=== PATIENT | female | born 1940 | race Caucasian/White ===

== ENCOUNTER 2022-06-14 11:30 | Outpatient (CLI) | payer MEDICARE, SELFPAY | END 2022-06-14 11:31 | disposition home or self-care (01) | LOC: AMB 07-09 20:09 | PROVIDERS: PCP Family Medicine; Visit Provider Family Medicine | DX: R53.1 Weakness (principal) | CPT/HCPCS: A0425; A0427 ==

== ENCOUNTER 2022-06-14 11:52 | Inpatient (IN) | payer MEDICARE, SELFPAY ==
[2022-06-14] VITALS (21 sets, daily range): BP systolic 109–174; BP diastolic 63–145; PULSE 102–124; RESP 18–20; TEMP 35.9–37.3; O2SAT 90–100; BMI 36.6
--- NOTE | 2022-06-14 | CRLHL7_ITS ---
For Patients: As a result of the Century Cures Act, medical imaging exams and procedure reports are released immediately into your electronic medical record. You may view this report before your referring provider. If you have questions, please contact your health care provider. INDICATION: Cough, weakness. TECHNIQUE: Chest 1 views. COMPARISON: Chest x-ray from 12/31/2019. FINDINGS: Lungs: Clear lungs. No consolidation. Pleura: No pleural effusion or pneumothorax. Heart and Mediastinum: The cardiomediastinal silhouette is normal. The vessels are unremarkable. Bones: Unremarkable. IMPRESSION: No acute cardiopulmonary disease. Dictated by Huy Conway MD @ 06/14/2022 2:00:26 PM (Electronically Signed)
--- NOTE | 2022-06-14 12:26 | ED_ITS ---
HPI - General Adult General Time Seen by Provider: 12:27 Date Seen: 06/14/22 Chief complaint: Fall/Minor Trauma Stated complaint: Weakness Time Seen by Provider: 06/14/22 12:09 Source: patient, EMS, RN notes reviewed and old records reviewed Mode of arrival: EMS Limitations: no limitations History of Present Illness HPI narrative: Ashley is an 81-year-old female that is brought by EMS after being found down by her assistant sales manager in her apartment. She states she lost her balance/tripped in her apartment yesterday about 4:30 p.m.. She is laid there until she was found this morning. She could not get back up. She states she was too weak to get back up. There was urine and feces where she had lost control. She denies any fevers or feeling ill. In route in the ambulance she did have an emesis, was given Zofran. She denies any significant pain. She states her left arm and elbow are somewhat sore. She denies any shortness of breath, no chest pain, no active ongoing nausea, no abdominal pain, denies any significant pain in her extremities. She resides independently in her apartment. Review of prior records shows that we last saw her on 07/06/2021. Of note, when I went in and introduced myself, and remembered seen me before. Her past medical and surgical history significant for chronic back pain, cervical stenosis that is reportedly severe. She has had balance issues in the past. Hypertension, status post cholecystectomy, status post right knee replacement. She has had an orif for distal tibia repair. She has had bilateral wrist surgeries. She has had 5 spinal fusions prior. She has had a right ankle orif. Related Data Home Medications Medication Instructions Recorded Confirmed amlodipine 10 mg tablet 5 mg PO DAILY 06/14/22 06/14/22 cholecalciferol (vitamin D3) 50 50 mcg PO DAILY 06/14/22 06/14/22 mcg (2,000 unit) capsule diphenhydramine HCl 25 mg capsule 25 mg PO QHS PRN 06/14/22 06/14/22 (Allergy (diphenhydramine)) gabapentin 600 mg tablet 600 mg PO BID 06/14/22 06/14/22 ibuprofen 200 mg tablet (Advil) 600 mg PO TID PRN 06/14/22 06/14/22 losartan 25 mg tablet 25 mg PO DAILY 06/14/22 06/14/22 multivitamin (Multiple Vitamins 1 tab PO DAILY 06/14/22 06/14/22 tablet) oxycodone 5 mg tablet 5 mg PO Q6H PRN 06/14/22 06/14/22 zinc gluconate 50 mg tablet 50 mg PO DAILY 06/14/22 06/14/22 Allergies Allergy/AdvReac Type Severity Reaction Status Date / Time No Known Drug Allergies Allergy Verified 06/14/22 12:15 Review of Systems Status of ROS: Reports: 10 or more systems reviewed and unremarkable except as noted in History and below [facility] Medical History (Updated 06/14/22 @ 19:36 by Deena Adams MD) Cervical spinal stenosis Chronic pain Difficulty balancing Essential hypertension Hyperlipidemia Osteopenia Prediabetes Surgical History (Updated 06/14/22 @ 18:57 by Deena Adams MD) H/O wrist surgery S/P cervical spinal fusion S/P lumbar fusion S/P rotator cuff repair Total knee replacement status Social History Highest level of school completed/degree received: Associate degree: occupational, technical, vocational program Smoking Status: Never smoker Do you use any of these nicotine containing products: None Second hand tobacco smoke exposure: No How often do you have a drink containing alcohol: never How often do you have six or more drinks on one occasion: Never AUDIT-C Alcohol total score: 0 Non-prescribed substance use: denies use Caffeine: Yes service: Yes Exam Const: Vital Signs, click to edit/add: Vital Signs - 24 hr 06/14/22 12:13 06/14/22 12:38 06/14/22 13:03 Temperature 96.6 F L Pulse Rate Pulse Rate [Left A pical] Pulse Rate [Left P ulse Oximeter] 106 H Respiratory Rate 18 Blood Pressure 174/145 H Blood Pressure [Ri ght Arm] Blood Pressure [Ri ght Upper Arm] 148/116 H Pulse Oximetry 97 95 Oxygen Delivery Me thod Room Air 06/14/22 13:10 06/14/22 13:45 06/14/22 14:00 Temperature Pulse Rate 108 H 102 H 109 H Pulse Rate [Left A pical] Pulse Rate [Left P ulse Oximeter] Respiratory Rate Blood Pressure Blood Pressure [Ri ght Arm] Blood Pressure [Ri ght Upper Arm] Pulse Oximetry 95 96 97 Oxygen Delivery Me thod 06/14/22 14:05 06/14/22 14:15 06/14/22 14:17 Temperature Pulse Rate 105 H 106 H 104 H Pulse Rate [Left A pical] Pulse Rate [Left P ulse Oximeter] Respiratory Rate Blood Pressure 109/97 H Blood Pressure [Ri ght Arm] Blood Pressure [Ri ght Upper Arm] Pulse Oximetry 98 98 98 Oxygen Delivery Me thod 06/14/22 14:30 06/14/22 14:32 06/14/22 14:45 Temperature Pulse Rate 107 H 107 H 106 H Pulse Rate [Left A pical] Pulse Rate [Left P ulse Oximeter] Respiratory Rate Blood Pressure 130/95 H Blood Pressure [Ri ght Arm] Blood Pressure [Ri ght Upper Arm] Pulse Oximetry 97 100 97 Oxygen Delivery Pr thod 06/14/22 14:47 06/14/22 15:00 06/14/22 17:17 Temperature Pulse Rate 108 H 124 H Pulse Rate [Left A pical] Pulse Rate [Left P ulse Oximeter] Respiratory Rate 20 Blood Pressure 122/93 H Blood Pressure [Ri ght Arm] Blood Pressure [Ri ght Upper Arm] Pulse Oximetry 97 93 96 Oxygen Delivery Pr thod Room Air 06/14/22 17:32 06/14/22 15:45 06/14/22 15:45 Temperature 98.8 F 98.8 F Pulse Rate Pulse Rate [Left A pical] 110 H 110 H 110 H Pulse Rate [Left P ulse Oximeter] Respiratory Rate 20 20 Blood Pressure Blood Pressure [Ri ght Arm] 124/86 124/86 Blood Pressure [Ri ght Upper Arm] Pulse Oximetry 96 96 Oxygen Delivery Pr thod Room Air Room Air 06/14/22 15:45 Temperature 98.8 F Pulse Rate Pulse Rate [Left A pical] 110 H Pulse Rate [Left P ulse Oximeter] Respiratory Rate 20 Blood Pressure Blood Pressure [Ri ght Arm] 124/86 Blood Pressure [Ri ght Upper Arm] Pulse Oximetry 94 Oxygen Delivery Pr thod Room Air Documenting provider has reviewed patient's vital signs: yes Common normals: no apparent distress, average body habitus, oriented x3, no limitations and alert General appearance: cooperative, comfortable and disheveled Other: Patient seemed flushed and warm to me. Did recheck a temporal temperature and she was 99.4. Tried an oral temperature but her oral membranes are so dry that I do not know that we are getting adequate contact. We got a low temperature and then a normal temperature. Again doubt the accuracy of this. HENMT: Common normals: normocephalic, head/scalp atraumatic, hearing grossly normal bilaterally, external ears normal, external nose normal and nasal mucous membranes and turbinates normal Head and scalp: normocephalic and atraumatic Nose: external nose normal and nasal mucous membranes and turbinates normal External ear: external ears normal Other: No traumatic change of her oropharynx but mucosa is definitely dry. Eye: Common normals: PERRL, EOMs intact bilaterally, conjunctivae normal and no scleral icterus Conjunctiva: conjunctiva(e) normal Pupil: PERRL Other: Some edema along the inner canthus of the left periorbital structure. No traumatic change noted. Neck & C-Spine: Common normals: full ROM, no lymphadenopathy, supple, no meningeal signs, no JVD and thyroid normal Thyroid: thyroid normal Chest: Common normals: inspection of chest normal and palpation of chest normal Resp: Common normals: normal respiratory effort, no retractions, no use of accessory muscles and clear to auscultation bilaterally Auscultation: clear to auscultation bilaterally Other: Note it took assist of 2 to help patient set up so I could auscultate her lungs. Cardio: Common normals: no JVD, regular rhythm, S1 normal heart sound, S2 normal heart sound, no gallops, no clicks and no murmurs Rate: tachycardic Rhythm: regular rhythm Heart sounds: S1 normal and S2 normal GI: Common normals: Normal to inspection, nondistended, normoactive bowel sounds present, soft to palpation, non-tender, no hepatosplenomegaly and no masses Palpation: soft and no hepatosplenomegaly Back & Pelvis: Common normals: thoracic and lumbar spine normal to inspection and no thoracic nor lumbar tenderness Extremity: Other: She can move both lower extremities. The right lower extremity has a skin tear inferiorly without any active bleeding. There is a demarcated erythema along the anterior tibia that is mildly erythematous, slightly warm. Will need to observe this in see if it is more dependent changes from lying on the ground or if this could be an early cellulitis starting. Left leg right arm seem to be unaffected. She does complain of some mild left elbow pain, seems to have preserved range of motion, see no focal abnormalities. Reviewed with her we will obtain an x-ray of this elbow. She is not tender about the glenohumeral joint but as I go down the proximal humerus she states there is some tenderness there. There is no overlying skin change. Will obtain x-rays of her humerus. Distal forearm, wrist and finger seem to be unaffected at this time. Neuro: Common normals: oriented x3 Sensorium/orientation: alert Meningeal signs: no meningeal signs Course Course Hospital Course: Patient is an 81-year-old female that had a fall, obviously need to consider traumatic issues, would recommend a head CT even though she seems to be neurovascularly stable. Will get x-rays of her left elbow in humerus. Will consider further workup of anything else that may crop up while she is here. We need to consider infectious etiology, metabolic etiology is potential causes of her fall. Will also review an EKG and troponin on her. We will be obtaining a total CK to ensure she does not have any ensuing rhabdomyolysis. Will have urinalysis collected. Will also get the triple viral swab for COVID/influenza/RSV. Will be doing a portable chest x-ray as we all know that pneumonia can have occult presentation in these elderly in be the cause for weakness for them. I have ordered blood cultures as well. We will start with a 500 mL fluid bolus, manage her fluids closely. She is not hypotensive at this time. She will be monitored on cardiac monitoring and pulse oximetry. Consultations Consultation #1: Spoke with hospitalist Dr. Adams regarding this patient. She does accept her. She will initiate maintenance fluids for her. She did want patient initiated on remdesivir. Given patient has a CK a in the 7000 range, do not feel Paxlovid should be initiated in her. She agrees, we will start remdesivir and I will order the 1st dose. Will let patient know she is being hospitalized. Time: 14:17 Vital Signs Vital signs: Initial Vital Signs Temperature 96.6 F L 06/14/22 12:13 Temperature Source Temporal Artery Scan 06/14/22 12:13 Pulse Rate 106 H 06/14/22 12:13 Pulse Rhythm 06/14/22 12:13 Pulse Strength 3+ Normal 06/14/22 12:13 Respiratory Rate 18 06/14/22 12:13 Blood Pressure 148/116 H 06/14/22 12:13 Blood Pressure Mean 126 06/14/22 12:13 Blood Pressure Position Sitting 06/14/22 12:13 Pulse Oximetry 97 06/14/22 12:13 Oxygen Delivery Method 06/14/22 12:13 Vital Signs Temperature 96.6 F L 06/14/22 12:13 Pulse Rate 106 H 06/14/22 12:13 Respiratory Rate 18 06/14/22 12:13 Blood Pressure 148/116 H 06/14/22 12:13 Pulse Oximetry 97 06/14/22 12:13 Oxygen Delivery Method 06/14/22 12:13 Temperature 99.1 F 06/14/22 19:00 Pulse Rate 112 H 06/14/22 19:00 Respiratory Rate 20 06/14/22 19:00 Blood Pressure 114/79 06/14/22 19:00 Pulse Oximetry 97 06/14/22 19:00 Oxygen Delivery Method 06/14/22 19:00 Medical Decision Making Lab Data Lab results reviewed: Yes I reviewed the patient's lab results Labs: Lab Results 06/14/22 06/14/22 06/14/22 Range/Units 12:35 12:45 12:45 WBC 19.73 H (4.50-11.00) K/uL RBC 4.68 (4.00-5.20) m/uL Hgb 14.4 (12.0-16.0) gm/dL Hct 43.4 (33.0-51.0) % MCV 93 (80-100) fL MCH 31 (26-34) pg MCHC 33 (32-36) gm/dL RDW Coeff of Gege 12.7 (11.5-15.5) % Plt Count 273 (140-440) K/uL Neut % (Auto) 89.7 H (42.0-72.0) % Lymph % (Auto) 3.5 L (20-44) % Murray % (Auto) 6.4 (0.0-11.0) % Eos % (Auto) 0.0 (0.0-7.0) % Baso % (Auto) 0.1 (0.0-3.0) % Neut # (Auto) 17.70 H (1.7-7.0) K/uL Lymph # (Auto) 0.70 L (0.90-2.90) K/uL Murray # (Auto) 1.30 H (0.00-0.90) K/UL Eos # (Auto) 0.00 (0.00-0.50) K/uL Baso # (Auto) 0.00 (0.00-0.30) K/uL Abs Immat Gran (auto) 0.10 (0.00-0.30) K/uL Imm/Tot Granulo (auto) 0.3 % Sodium 138 (135-149) mmol/L Potassium 3.8 (3.6-5.1) mmol/L Chloride 102 (96-114) mmol/L Carbon Dioxide 27 (20-32) mmol/L BUN 18 (7-30) mg/dL Creatinine 0.6 (0.5-1.5) mg/dL Estimated Creat Clear 34.30 Estimated GFR 90 ml/min Glucose 139 H (60-115) mg/dL Lactate (0.5-1.9) mmol/L Calcium 9.6 (8.4-10.6) mg/dL Total Bilirubin 0.7 (0.1-1.5) mg/dL AST 136 H (12-35) U/L ALT 49 H (4-35) U/L Alkaline Phosphatase 81 (40-150) U/L Total Creatine Kinase 7052 H (41-117) U/L C-Reactive Protein 4.7 H (0.5-1.0) mg/dL NT-Pro-B Natriuret Pep (0-450) PG/mL Total Protein 6.8 (6.0-8.3) g/dL Albumin 4.4 (3.3-5.0) g/dL Ethyl Alcohol < 0.01 L (0.01-0.03) % SARS-CoV-2 (PCR) (Negative) Influenza Type A (PCR) (Negative) Influenza Type B (PCR) (Negative) RSV (PCR) (Negative) POC Troponin I 0.00 L (0.01-0.04) ng/ml 06/14/22 06/14/22 06/14/22 Range/Units 12:45 12:45 12:48 WBC (4.50-11.00) K/uL RBC (4.00-5.20) m/uL Hgb (12.0-16.0) gm/dL Hct (33.0-51.0) % MCV (80-100) fL MCH (26-34) pg MCHC (32-36) gm/dL RDW Coeff of Gege (11.5-15.5) % Plt Count (140-440) K/uL Neut % (Auto) (42.0-72.0) % Lymph % (Auto) (20-44) % Murray % (Auto) (0.0-11.0) % Eos % (Auto) (0.0-7.0) % Baso % (Auto) (0.0-3.0) % Neut # (Auto) (1.7-7.0) K/uL Lymph # (Auto) (0.90-2.90) K/uL Murray # (Auto) (0.00-0.90) K/UL Eos # (Auto) (0.00-0.50) K/uL Baso # (Auto) (0.00-0.30) K/uL Abs Immat Gran (auto) (0.00-0.30) K/uL Imm/Tot Granulo (auto) % Sodium (135-149) mmol/L Potassium (3.6-5.1) mmol/L Chloride (96-114) mmol/L Carbon Dioxide (20-32) mmol/L BUN (7-30) mg/dL Creatinine (0.5-1.5) mg/dL Estimated Creat Clear Estimated GFR ml/min Glucose (60-115) mg/dL Lactate 2.3 H (0.5-1.9) mmol/L Calcium (8.4-10.6) mg/dL Total Bilirubin (0.1-1.5) mg/dL AST (12-35) U/L ALT (4-35) U/L Alkaline Phosphatase (40-150) U/L Total Creatine Kinase (41-117) U/L C-Reactive Protein (0.5-1.0) mg/dL NT-Pro-B Natriuret Pep 719 H (0-450) PG/mL Total Protein (6.0-8.3) g/dL Albumin (3.3-5.0) g/dL Ethyl Alcohol (0.01-0.03) % SARS-CoV-2 (PCR) POSITIVE SARS-CoV-2 A (Negative) Influenza Type A (PCR) Negative PCR FLU A (Negative) Influenza Type B (PCR) Negative PCR FLU B (Negative) RSV (PCR) Negative PCR RSV (Negative) POC Troponin I (0.01-0.04) ng/ml ECG Data Attestation: I personally reviewed and interpreted this ECG as follows: (Sinus tachycardia, 102 beats per minute. No acute pathology, there is some baseline artifact. QT corrected 463 milliseconds.) Prior ECG tracings: not available for review Critical Care Time Critical Care Time Critical Care Time: No Discharge Plan Discharge Clinical Impression: COVID-19, Rhabdomyolysis, Fall Prescriptions: No Action gabapentin 600 mg tablet 600 mg PO BID amlodipine 10 mg tablet 5 mg PO DAILY losartan 25 mg tablet 25 mg PO DAILY oxycodone 5 mg tablet 5 mg PO Q6H PRN multivitamin [Multiple Vitamins] Tablet 1 tab PO DAILY ibuprofen [Advil] 200 mg tablet 600 mg PO TID PRN cholecalciferol (vitamin D3) 50 mcg (2,000 unit) capsule 50 mcg PO DAILY diphenhydramine HCl [Allergy (diphenhydramine)] 25 mg capsule 25 mg PO QHS PRN zinc gluconate 50 mg tablet 50 mg PO DAILY Follow Up/Referrals: Rose Painter MD [Primary Care Provider] -
--- NOTE | 2022-06-14 12:52 | CRLHL7_ITS ---
For Patients: As a result of the Century Cures Act, medical imaging exams and procedure reports are released immediately into your electronic medical record. You may view this report before your referring provider. If you have questions, please contact your health care provider. INDICATION: Trauma COMPARISON: July 06, 2021 TECHNIQUE: CT examination of the head was performed as axial sections without intravenous contrast. Images were obtained from the vertex of the skull through the skull base. Please note that all CT scans at this facility use dose modulation, iterative reconstruction, and/or weight-based dosing when appropriate to reduce radiation dose to as low as reasonably achievable. FINDINGS: The brain shows no sign of mass lesion, mass effect, hemorrhage, or edema. There are involutional changes. There is moderate cortical atrophy and there is moderate to severe white matter disease. There is no hydrocephalus. The ventricles are mildly dilated but unchanged since the prior study. The visualized portions of the orbits are normal in appearance. The osseous structures are normal in appearance with no sign of abnormality in the skull base or calvarium. IMPRESSION: Involutional changes. Atrophy and white matter disease. Mildly dilated ventricles. Unchanged overall appearance since 2020. No acute posttraumatic finding. Please note that all CT scans at this facility use dose modulation, iterative reconstruction, and/or weight-based dosing when appropriate to reduce radiation dose to as low as reasonably achievable. Dictated by Yair Moreau MD @ 06/14/2022 2:28:37 PM (Electronically Signed)
--- NOTE | 2022-06-14 12:52 | CRLHL7_ITS ---
For Patients: As a result of the Cures Act, medical imaging exams and procedure reports are released immediately into your electronic medical record. You may view this report before your referring provider. If you have questions, please contact your health care provider. Indication: Trauma Technique: Three views of the left elbow were acquired Comparison: None of the elbow. Findings: Bone mineral density is decreased. There is subcutaneous soft tissue swelling. Mild osteoarthritis. No visible acute fracture, dislocation or destructive process. Rim calcified subcutaneous soft tissue calcifications are likely phleboliths associated with venous varicosities or areas of fat necrosis. There is no joint effusion Impression: No fracture, dislocation or destructive process. No joint effusion. Mild osteoarthritis. Soft tissue swelling. Dictated by Yair Moreau MD @ 06/14/2022 2:42:22 PM (Electronically Signed)
--- NOTE | 2022-06-14 12:52 | CRLHL7_ITS ---
For Patients: As a result of the Century Cures Act, medical imaging exams and procedure reports are released immediately into your electronic medical record. You may view this report before your referring provider. If you have questions, please contact your health care provider. Indication: FALL, PAIN Technique: Left humerus, 2 views. Comparison: None. Findings: Bones: Alignment is normal. No fractures or bone lesions. Joint spaces: Unremarkable. Soft tissues: Subcutaneous reticulation posterior to the elbow. Impression: No evidence of fracture. Dictated by Scott Rene MD @ 06/14/2022 2:52:33 PM (Electronically Signed)
[2022-06-14 13:00] LABS: Basophils Percent Auto 0.1 % (0.0-3.0); Hematocrit 43.4 % (33.0-51.0); Hemoglobin* 14.4 gm/dL (12.0-16.0); Immature Granulocytes Pct Auto 0.3 %; Lymphocytes Percent Auto 3.5 % (20-44); Mean Corpuscular HGB Conc 33 gm/dL (32-36); Mean Corpuscular Hemoglobin 31 pg (26-34); Mean Corpuscular Volume 93 fL (80-100); Monocytes Percent Auto 6.4 % (0.0-11.0); Neutrophils Percent Auto 89.7 % (42.0-72.0); Platelet Count* 273 K/uL (140-440); RDW Coefficient of Variation % 12.7 % (11.5-15.5); Red Blood Count 4.68 m/uL (4.00-5.20); White Blood Count* 19.73 K/uL (4.50-11.00)
[2022-06-14 13:01] LABS: Slide Review Reflex No
[2022-06-14 13:16] LABS: Lactate* 2.3 mmol/L (0.5-1.9)
[2022-06-14 13:26] LABS: Albumin* 4.4 g/dL (3.3-5.0); Chloride* 102 mmol/L (96-114)
[2022-06-14 13:27] LABS: Potassium* 3.8 mmol/L (3.6-5.1); Sodium* 138 mmol/L (135-149)
[2022-06-14 13:29] LABS: Aspartate Amino Transferase* 136 U/L (12-35); Bilirubin Total* 0.7 mg/dL (0.1-1.5); Carbon Dioxide* 27 mmol/L (20-32); Creatinine* 0.6 mg/dL (0.5-1.5); Estimated Glomerular Filt Rate 90 ml/min; Total Protein* 6.8 g/dL (6.0-8.3)
[2022-06-14 13:30] LABS: Alanine Aminotransferase* 49 U/L (4-35); Alkaline Phosphatase* 81 U/L (40-150); Blood Urea Nitrogen* 18 mg/dL (7-30); Calcium* 9.6 mg/dL (8.4-10.6); Glucose* 139 mg/dL (60-115)
[2022-06-14 13:32] LABS: C Reactive Protein* 4.7 mg/dL (0.5-1.0)
[2022-06-14 13:38] LABS: Ethanol* < 0.01 % (0.01-0.03)
[2022-06-14 13:39] LABS: NT Pro B Type NatriureticPept* 719 PG/mL (0-450)
[2022-06-14 13:43] LABS: PCR FLU A Negative PCR FLU A (Negative); PCR FLU B Negative PCR FLU B (Negative); PCR RSV Negative PCR RSV (Negative)
[2022-06-14 13:45] LABS: SARS PCR* POSITIVE SARS-CoV-2 (Negative)
[2022-06-14 13:48] LABS: Creatine Kinase* 7052 U/L (41-117)
[2022-06-14] MEDS: 0.9 % SODIUM CHLORIDE 500 ML 500 ML IV ×2 (15:34→20:13)
--- NOTE | 2022-06-14 17:46 | PM.IMHP1 ---
Hospitalist- H&P: HPI History of Present Illness Date Seen: 06/14/22 Chief complaint: Weakness Narrative: Ashley Bell is a 81 year old female, brought in my EMS to the ER today, after being found down in her apartment by her tool crib manager. She fell at home yesterday (states mechanical fall, no preceding dizziness or palpitations), was unable to get back up 2/2 weakness. Known history of balance issues and has fallen before. When I see her on the floor, she has no complaints for me. She specifically denies muscle aches, abdominal pain, chest pain, nausea/vomiting/diarrhea. No acute dyspnea (has had in the past). Mild cough started upon arrival to the floor. ER Course and findings: - skin tear RLE, erythema LLE, edema and mild erythema around L elbow - WBC 19, PMN predominance - CK 7000, elevated AST/ALT, negative troponin - no acute abnormalities on CXR, Head, and left elbow imaging - + COVID Patient has had no COVID symptoms (until cough today), no recent known COVID contacts, has received 5 COVID vaccines. Past medical, surgical, social history updated in tabs below. 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 Lives alone in an apartment, has a cane for ambulatory assistance. Has previously declined Home Health services as offered by PCP, Dr. Painter. Not partnered, no children. Sister Asuncion lives locally and would be medical decision maker if needed. Ashley requests to be resuscitated in the event of a witnessed arrest only. Review of Systems Status of ROS: Reports: 10 or more systems reviewed and unremarkable except as noted in History and below [facility] Medical History (Updated 06/14/22 @ 19:36 by Deena Adams MD) Cervical spinal stenosis Chronic pain Difficulty balancing Essential hypertension Hyperlipidemia Osteopenia Prediabetes Surgical History (Updated 06/14/22 @ 18:57 by Deena Adams MD) H/O wrist surgery S/P cervical spinal fusion S/P lumbar fusion S/P rotator cuff repair Total knee replacement status Social History Highest level of school completed/degree received: Associate degree: occupational, technical, vocational program Smoking Status: Never smoker Do you use any of these nicotine containing products: None Second hand tobacco smoke exposure: No How often do you have a drink containing alcohol: never How often do you have six or more drinks on one occasion: Never AUDIT-C Alcohol total score: 0 Non-prescribed substance use: denies use Caffeine: Yes service: Yes Meds Home Medications and Allergies Home Medications Medication Instructions Recorded Confirmed Type amlodipine 10 mg tablet 5 mg PO DAILY 06/14/22 06/14/22 History cholecalciferol (vitamin D3) 50 50 mcg PO DAILY 06/14/22 06/14/22 History mcg (2,000 unit) capsule diphenhydramine HCl 25 mg capsule 25 mg PO QHS PRN 06/14/22 06/14/22 History (Allergy (diphenhydramine)) gabapentin 600 mg tablet 600 mg PO BID 06/14/22 06/14/22 History ibuprofen 200 mg tablet (Advil) 600 mg PO TID PRN 06/14/22 06/14/22 History losartan 25 mg tablet 25 mg PO DAILY 06/14/22 06/14/22 History multivitamin (Multiple Vitamins 1 tab PO DAILY 06/14/22 06/14/22 History tablet) oxycodone 5 mg tablet 5 mg PO Q6H PRN 06/14/22 06/14/22 History zinc gluconate 50 mg tablet 50 mg PO DAILY 06/14/22 06/14/22 History Home Medication Comments: Per [employer], fills #30 of Oxycodone approximately ever 25 days. Allergies Allergy/AdvReac Type Severity Reaction Status Date / Time No Known Drug Allergies Allergy Verified 06/14/22 12:15 Exam Narrative: Exam Narrative: GEN: Alert, answering questions appropriately, mild memory impairment noted HEENT: Normal external ears, EOMIs bilaterally, no scleral icterus CV: Sinus tachycardia with rate in the 100s during my exam, systolic murmur noted best at left sternal border R: Air movement adequate bilaterally. No wheezing. + rhonchi left base Ext: wwp, no concerning edema Skin: Erythema and edema just distal to left elbow, full range of motion noted. No crepitus to palpation. There is a small skin tear on the right lower extremity anteriorly without any active bleeding, approximately 2 cm in length. There is erythema along the lateral edge of the left lower extremity that is warm to palpation and moderately tender, no open skin wounds appreciated Neuro: No focal deficits, no resting tremor Psych: Appropriate Const: Vital Signs, click to edit/add: Vital Signs - 24 hr 06/14/22 12:13 06/14/22 12:38 06/14/22 13:03 Temperature 96.6 F L Pulse Rate Pulse Rate [Left A pical] Pulse Rate [Left P ulse Oximeter] 106 H Respiratory Rate 18 Blood Pressure 174/145 H Blood Pressure [Ri ght Upper Arm] 148/116 H Pulse Oximetry 97 95 Oxygen Delivery Me thod Room Air 06/14/22 13:10 06/14/22 13:45 06/14/22 14:00 Temperature Pulse Rate 108 H 102 H 109 H Pulse Rate [Left A pical] Pulse Rate [Left P ulse Oximeter] Respiratory Rate Blood Pressure Blood Pressure [Ri ght Upper Arm] Pulse Oximetry 95 96 97 Oxygen Delivery Me thod 06/14/22 14:05 06/14/22 14:15 06/14/22 14:17 Temperature Pulse Rate 105 H 106 H 104 H Pulse Rate [Left A pical] Pulse Rate [Left P ulse Oximeter] Respiratory Rate Blood Pressure 109/97 H Blood Pressure [Ri ght Upper Arm] Pulse Oximetry 98 98 98 Oxygen Delivery Me thod 06/14/22 14:30 06/14/22 14:32 06/14/22 14:45 Temperature Pulse Rate 107 H 107 H 106 H Pulse Rate [Left A pical] Pulse Rate [Left P ulse Oximeter] Respiratory Rate Blood Pressure 130/95 H Blood Pressure [Ri ght Upper Arm] Pulse Oximetry 97 100 97 Oxygen Delivery Me thod 06/14/22 14:47 06/14/22 15:00 06/14/22 17:17 Temperature Pulse Rate 108 H 124 H Pulse Rate [Left A pical] Pulse Rate [Left P ulse Oximeter] Respiratory Rate 20 Blood Pressure 122/93 H Blood Pressure [Ri ght Upper Arm] Pulse Oximetry 97 93 96 Oxygen Delivery Me thod Room Air 06/14/22 17:32 Temperature Pulse Rate Pulse Rate [Left A pical] 110 H Pulse Rate [Left P ulse Oximeter] Respiratory Rate Blood Pressure Blood Pressure [Ri ght Upper Arm] Pulse Oximetry Oxygen Delivery Me thod Hospitalist - H&P: Result Labs Labs: Short CBC 06/14/22 Range/Units 12:45 WBC 19.73 H (4.50-11.00) K/uL Hgb 14.4 (12.0-16.0) gm/dL Hct 43.4 (33.0-51.0) % Plt Count 273 (140-440) K/uL BMP 06/14/22 12:45 Sodium 138 Potassium 3.8 Chloride 102 Carbon Dioxide 27 BUN 18 Creatinine 0.6 Glucose 139 H Calcium 9.6 Cardiac Enzymes 06/14/22 Range/Units 12:45 Total Creatine Kinase 7052 H (41-117) U/L Liver Function 06/14/22 Range/Units 12:45 Total Bilirubin 0.7 (0.1-1.5) mg/dL AST 136 H (12-35) U/L ALT 49 H (4-35) U/L Alkaline Phosphatase 81 (40-150) U/L Albumin 4.4 (3.3-5.0) g/dL Assessment and Plan Assessment and plan (1) Fall: Status: Acute Assessment and Plan: - Patient endorses a history of poor balance, will consult PT and OT (2) Rhabdomyolysis: Status: Acute Assessment and Plan: - patient given 500 mL bolus in the emergency room. Will repeat this, continue maintenance IV fluids, follow CK and LFTs, UA pending (3) COVID-19: Problem comment: + 06/14/2022 Status: Acute Assessment and Plan: - timeline unclear, could be early in illness - given age and comorbidities, will treat with Remdesivir, follow renal function - not requiring supplemental oxygen at this time (4) Cellulitis: Problem comment: LLE Status: Acute Assessment and Plan: - given elevated white count and tachycardia, will cover cellulitis with Ancef - obtain lower extremity ultrasound (5) Essential hypertension: Status: Acute (6) Difficulty balancing: Status: Acute (7) Elevated LFTs: Status: Acute Assessment and Plan: - likely related to rhabdo, continue to follow Plan - per above - SCDs and Lovenox for prophylaxis
--- NOTE | 2022-06-14 19:18 | PC.NURSE ---
Pt admitted to room 277 @ via stretcher at 1547 pm from ED. Positive Covid patient. Full PPE utilized by admitting RN. Eval by Dr. Adams. Remdesivir infused. Wound care to skin tear triangular in shape on right anterior kennedy. New orders for cardiac cath technician, rhythm is sinus tachycardia. Continuous pulse ox in process. Pt is on a regular diet. Admission completed by primary RN. Bilateral calf SCDs placed. Pt ordered a late tray. Bed alarm engaged. Report to Marsha ESPARZA for date night sitter. pt still needs a urine sample collected. GB and walker in room, recommend 2 person assist secondary to fall at home and weakness/fatigue r/to covid.
[2022-06-14] MEDS: ENOXAPARIN 40 MG/0.4 ML INJ SUBCUT (21:25)
[2022-06-14] MEDS: CEFAZOLIN 1 GM in 0.9 % SODIUM CHLORIDE Mini-bag 100 ML IVPB (21:25)
[2022-06-14] MEDS: 0.9 % SODIUM CHLORIDE 1000 ml 1,000 ML 125 ML IV (21:25)
[2022-06-15] VITALS (8 sets, daily range): BP systolic 118–163; BP diastolic 76–119; PULSE 77–118; RESP 18–20; TEMP 36.6–37.2; O2SAT 92–99
[2022-06-15] MEDS: CEFAZOLIN 1 GM in 0.9 % SODIUM CHLORIDE Mini-bag 100 ML IVPB ×3 (04:39→21:35)
[2022-06-15] MEDS: 0.9 % SODIUM CHLORIDE 1000 ml 1,000 ML 125 ML IV ×2 (04:40→16:38)
[2022-06-15 06:46] LABS: Lactate* 0.8 mmol/L (0.5-1.9)
[2022-06-15] MEDS: ACETAMINOPHEN 325 MG TABLET 975 MG PO ×2 (06:52→16:54)
[2022-06-15 06:56] LABS: Basophils Percent Auto 0.2 % (0.0-3.0); Eosinophils Percent Auto 0.1 % (0.0-7.0); Hemoglobin* 12.8 gm/dL (12.0-16.0); Immature Granulocytes Pct Auto 0.1 %; Lymphocytes Percent Auto 10.9 % (20-44); Mean Corpuscular HGB Conc 33 gm/dL (32-36); Mean Corpuscular Hemoglobin 31 pg (26-34); Mean Corpuscular Volume 93 fL (80-100); Monocytes Percent Auto 7.7 % (0.0-11.0); Platelet Count* 278 K/uL (140-440); Red Blood Count 4.18 m/uL (4.00-5.20); White Blood Count* 13.41 K/uL (4.50-11.00)
--- NOTE | 2022-06-15 07:00 | CRLHL7_ITS ---
For Patients: As a result of the Century Cures Act, medical imaging exams and procedure reports are released immediately into your electronic medical record. You may view this report before your referring provider. If you have questions, please contact your health care provider. INDICATION: COMPARISON: None. TECHNIQUE: A compression venous ultrasound exam was performed of the left lower extremity using caputo-scale imaging, color Doppler and spectral Doppler analysis. FINDINGS: Sonographic imaging of the left lower extremity demonstrates normal compressibility and color Doppler venous blood flow within the common femoral vein, deep femoral vein, and the proximal greater saphenous vein. Within the thigh, the femoral vein is patent and compressible. At a lower level, the popliteal and posterior tibial veins also show normal compressibility and color Doppler venous blood flow. Limited imaging of the contralateral groin demonstrates a normal spectral waveform and color Doppler venous blood flow within the right common femoral vein. IMPRESSION: Normal venous ultrasound exam. No evidence of deep vein thrombosis within the left lower extremity. Dictated by Crow Ferrari MD @ 06/15/2022 10:29:08 AM (Electronically Signed)
[2022-06-15 07:24] LABS: Albumin* 3.8 g/dL (3.3-5.0)
[2022-06-15 07:25] LABS: Chloride* 111 mmol/L (96-114); Potassium* 3.3 mmol/L (3.6-5.1); Sodium* 139 mmol/L (135-149)
[2022-06-15 07:27] LABS: Aspartate Amino Transferase* 138 U/L (12-35); Bilirubin Total* 0.5 mg/dL (0.1-1.5); Carbon Dioxide* 22 mmol/L (20-32); Creatinine* 0.6 mg/dL (0.5-1.5); Estimated Glomerular Filt Rate 90 ml/min; Total Protein* 6.4 g/dL (6.0-8.3)
[2022-06-15 07:28] LABS: Alanine Aminotransferase* 56 U/L (4-35); Alkaline Phosphatase* 66 U/L (40-150); Blood Urea Nitrogen* 21 mg/dL (7-30); Calcium* 8.6 mg/dL (8.4-10.6); Glucose* 112 mg/dL (60-115)
[2022-06-15 07:31] LABS: Slide Review Reflex No
--- NOTE | 2022-06-15 07:41 | PC.NURSE ---
[id number]: Patient pleasant and cooperative. A&O x3 but confused at times. Denies pain at rest but did request Tylenol for chronic back pain this morning. Incontinent of B&B but states that it is not normal for her. Cellulitis to L. lower extremity outlined. Skin tear to R. kennedy with tagaderm bandage. Heavy A2, walker, GB to BSC. Denies N/V. Intermittent dry cough.
[2022-06-15 08:10] LABS: C Reactive Protein* 6.3 mg/dL (0.5-1.0)
[2022-06-15 08:11] LABS: NT Pro B Type NatriureticPept* 513 PG/mL (0-450)
[2022-06-15 08:15] LABS: Troponin I* 0.01 ng/mL (0.01-0.04)
[2022-06-15] MEDS: AMLODIPINE 10 MG TABLET 5 MG PO (08:38)
[2022-06-15] MEDS: LOSARTAN POTASSIUM 50 MG TABLET 25 MG PO (08:38)
[2022-06-15 08:39] LABS: Creatine Kinase* 5107 U/L (41-117)
[2022-06-15 09:40] LABS: Appearance Urine Cloudy (Clear); Bilirubin Urine Negative (Negative); Blood Urine 2+ (Negative); Color Urine Yellow (Yellow); Glucose Urine Negative (Negative); Ketones Urine 2+ (Negative); Leukocyte Esterase Urine 3+ (Negative); Nitrite Urine Negative (Negative); Protein Urine 3+ (Negative); Specific Gravity Urine >= 1.030 (1.000-1.030); Urobilinogen Urine 0.2 (0.2-1.0); pH Urine 6.5 (5.0-8.5)
[2022-06-15 10:05] LABS: Bacteria Urine Moderate; RBC Urine 0-2 (0-2); Squamous Epithelial Cell Urine Few (None-Few); WBC Urine 50-100 (0-5)
--- NOTE | 2022-06-15 13:59 | PM.IMPN1 ---
Progress Note: A&P Assessment and plan (1) Fall: Problem details: Cause undetermined. COVID? abnl UA - culture pending, on IV Ancef. cause or result of fall? Status: Acute (2) Rhabdomyolysis: Problem details: Down trending CK, normal renal function. Continue IV fluid hydration. Trend markers. Status: Acute (3) COVID-19: Problem details: + 06/14/2022 Loading dose of Remdesivir given, 2 more IV doses planned Status: Acute (4) Cellulitis: Problem details: LLE - looks more like inflamation and abrasions. follow clinically; consider oral vs d/c antibiotics. Status: Acute (5) Essential hypertension: Problem details: restart home norvasc and losartan Status: Acute (6) Difficulty balancing: Problem details: slow decline; this will affect her discharge plan -OT/PT to eval and consider rehab/SNF placement Status: Acute (7) Elevated LFTs: Problem details: likely related to prolonged immobilization, rhabdo, dehydration. will follow clinically Status: Acute Subjective Date Seen: 06/15/22 Interval history: DAILY PROGRESS NOTE - HOSPITAL MEDICINE DAY #: 2 CC: COVID+, FALL W/PROLONGED IMBOLIZATION (18 HOURS), RHABDO, SUPERFICIAL ABRASIONS ON HER LEFT LOWER LEG OVERNIGHT UPDATES FROM STAFF & MED, LAB, IMAGING UPDATES alert, a little forgetful. she tells me she is not sure why she fell. she remembers trying to get to the door, her cat coming over. she has road rash on her left lower extremity. AFEBRILE SINCE ARRIVAL, T-MAX 99.1? Blood pressure 118/100, 148/119 Pulse rate 89-109 Respiratory rate 20 93% on room air 90.72 kilos Leukocytosis has downtrended nicely 19.7-13.4 Hemoglobin 14-12 Potassium has down trended to 3.3 Normal renal function despite rhabdomyolysis Lactate elevation has resolved AST and ALT are elevated Total CK is down trending nicely 7000 to 5000 C reactive protein 4.7-6.3 BMP down trending from [id number] Urine shows 3+ protein, 2+ ketones, 3+ leukocyte esterase, elevated white blood cells Urine and blood cultures are pending REVIEW OF SYSTEMS: SEE SUBJECTIVE CARDIAC: NO NEW CHEST PAIN/PRESSURE/PALPITATIONS. RESPIRATORY: NO NEW DYSPNEA. GI: NO ABDOMINAL BLOATING OBJECTIVE: VITALS: SEE ABOVE LUNGS: CLEAR. CARDIAC: S1S2. Flow murmur noted, not harsh Skin: left calf abrasions DISPOSITION/POTENTIAL DISCHARGE - Will likely need to rehab stay, however is COVID positive, so will likely be doing rehab here and then discharging either at the 10 day point to rehab verses going home. TOTAL TIME IS 35 MINUTES WITH GREATER THAN 50% SPENT IN COUNSELING AND COORDINATION OF CARE. Exam Const: Vital Signs, click to edit/add: Vital Signs - 24 hr 06/14/22 14:00 06/14/22 14:05 06/14/22 14:15 Temperature Pulse Rate 109 H 105 H 106 H Pulse Rate [Left A pical] Respiratory Rate Blood Pressure Blood Pressure [Ri ght Arm] Pulse Oximetry 97 98 98 Oxygen Delivery Me thod 06/14/22 14:17 06/14/22 14:30 06/14/22 14:32 Temperature Pulse Rate 104 H 107 H 107 H Pulse Rate [Left A pical] Respiratory Rate Blood Pressure 109/97 H 130/95 H Blood Pressure [Ri ght Arm] Pulse Oximetry 98 97 100 Oxygen Delivery Me thod 06/14/22 14:45 06/14/22 14:47 06/14/22 15:00 Temperature Pulse Rate 106 H 108 H 124 H Pulse Rate [Left A pical] Respiratory Rate Blood Pressure 122/93 H Blood Pressure [Ri ght Arm] Pulse Oximetry 97 97 93 Oxygen Delivery Me thod 06/14/22 17:17 06/14/22 17:32 06/14/22 15:45 Temperature 98.8 F Pulse Rate Pulse Rate [Left A pical] 110 H 110 H Respiratory Rate 20 20 Blood Pressure Blood Pressure [Ri ght Arm] 124/86 Pulse Oximetry 96 96 Oxygen Delivery Me thod Room Air Room Air 06/14/22 18:08 06/14/22 18:07 06/14/22 15:45 Temperature 98.8 F Pulse Rate 118 H Pulse Rate [Left A pical] 110 H Respiratory Rate 20 Blood Pressure Blood Pressure [Ri ght Arm] 124/86 Pulse Oximetry 94 96 Oxygen Delivery Me thod Room Air 06/14/22 15:45 06/14/22 19:00 06/14/22 23:00 Temperature 98.8 F 99.1 F 98.1 F Pulse Rate Pulse Rate [Left A pical] 110 H 112 H 117 H Respiratory Rate 20 20 20 Blood Pressure Blood Pressure [Ri ght Arm] 124/86 114/79 131/63 Pulse Oximetry 94 97 94 Oxygen Delivery Me thod Room Air Room Air Room Air 06/14/22 23:00 06/14/22 23:00 06/14/22 23:00 Temperature Pulse Rate Pulse Rate [Left A pical] 117 H Respiratory Rate Blood Pressure Blood Pressure [Ri ght Arm] Pulse Oximetry 90 90 Oxygen Delivery Me thod Room Air 06/14/22 23:00 06/15/22 03:00 06/15/22 07:00 Temperature 98.3 F Pulse Rate 118 H Pulse Rate [Left A pical] 109 H Respiratory Rate 20 Blood Pressure Blood Pressure [Ri ght Arm] 153/79 H Pulse Oximetry 92 92 Oxygen Delivery Me thod Room Air 06/15/22 07:00 06/15/22 07:00 06/15/22 07:00 Temperature 98.4 F Pulse Rate Pulse Rate [Left A pical] 109 H 109 H Respiratory Rate 20 20 Blood Pressure Blood Pressure [Ri ght Arm] 148/119 H Pulse Oximetry 92 93 Oxygen Delivery Me thod Room Air Room Air Labs Labs: Laboratory Results - last 24 hr 06/14/22 06/15/22 06/15/22 09:36 06:40 06:40 WBC 13.41 H RBC 4.18 Hgb 12.8 Hct 39.0 MCV 93 MCH 31 MCHC 33 RDW Coeff of [place] 13.0 Plt Count 278 Neut % (Auto) 81.0 H Lymph % (Auto) 10.9 L [place] % (Auto) 7.7 Eos % (Auto) 0.1 Baso % (Auto) 0.2 Neut # (Auto) 10.90 H Lymph # (Auto) 1.50 [place] # (Auto) 1.00 H Eos # (Auto) 0.00 Baso # (Auto) 0.00 Abs Immat Gran (auto) 0.00 Imm/Tot Granulo (auto) 0.1 Sodium Potassium Chloride Carbon Dioxide BUN Creatinine Estimated Creat Clear Estimated GFR Glucose Lactate 0.8 Calcium Total Bilirubin AST ALT Alkaline Phosphatase Total Creatine Kinase Troponin I C-Reactive Protein NT-Pro-B Natriuret Pep Total Protein Albumin Urine Color Yellow Urine Appearance Cloudy A Urine pH 6.5 Ur Specific [place] >= 1.030 Urine Protein 3+ A Urine Glucose (UA) Negative Urine Ketones 2+ A Urine Blood 2+ A Urine Nitrite Negative Urine Bilirubin Negative Urine Urobilinogen 0.2 Ur Leukocyte Esterase 3+ A Urine RBC 0-2 Urine WBC 50-100 A Ur Squamous Epith Cells Few Urine Bacteria Moderate A 06/15/22 06:40 WBC RBC Hgb Hct MCV MCH MCHC RDW Coeff of [place] Plt Count Neut % (Auto) Lymph % (Auto) [place] % (Auto) Eos % (Auto) Baso % (Auto) Neut # (Auto) Lymph # (Auto) [place] # (Auto) Eos # (Auto) Baso # (Auto) Abs Immat Gran (auto) Imm/Tot Granulo (auto) Sodium 139 Potassium 3.3 L Chloride 111 Carbon Dioxide 22 BUN 21 Creatinine 0.6 Estimated Creat Clear 34.30 Estimated GFR 90 Glucose 112 Lactate Calcium 8.6 Total Bilirubin 0.5 AST 138 H ALT 56 H Alkaline Phosphatase 66 Total Creatine Kinase 5107 H Troponin I 0.01 C-Reactive Protein 6.3 H NT-Pro-B Natriuret Pep 513 H Total Protein 6.4 Albumin 3.8 Urine Color Urine Appearance Urine pH Ur Specific [place] Urine Protein Urine Glucose (UA) Urine Ketones Urine Blood Urine Nitrite Urine Bilirubin Urine Urobilinogen Ur Leukocyte Esterase Urine RBC Urine WBC Ur Squamous Epith Cells Urine Bacteria
[2022-06-15] MEDS: GABAPENTIN 600 MG TABLET PO (21:35)
[2022-06-15] MEDS: ENOXAPARIN 40 MG/0.4 ML INJ SUBCUT (21:35)
[2022-06-16 03:00] VITALS: BP 150/71; PULSE 105; RESP 20; TEMP 36.8; O2SAT 95
[2022-06-16] MEDS: 0.9 % SODIUM CHLORIDE 1000 ml 1,000 ML 125 ML IV ×2 (03:40→12:45)
[2022-06-16] MEDS: CEFAZOLIN 1 GM in 0.9 % SODIUM CHLORIDE Mini-bag 100 ML IVPB ×2 (05:26→12:43)
--- NOTE | 2022-06-16 06:49 | PC.NURSE ---
1507: pt pleasant and cooperative. EZ stand for transfers, pt tolerated well. pt incont, requiring brief changes, linens changed x 1. VSS. O2 > 88%. LLE cellulitis outlined. Mepi on right kennedy. Tele: NSR/Sinus Tach @ 1500. Tele: Sinus arrythmia @ 2300.
[2022-06-16 07:00] VITALS: BP 147/106; PULSE 77; PULSE 97; RESP 18; TEMP 37.1; O2SAT 99
[2022-06-16 08:18] LABS: Hematocrit 34.6 % (33.0-51.0); Hemoglobin* 11.4 gm/dL (12.0-16.0); Mean Corpuscular HGB Conc 33 gm/dL (32-36); Mean Corpuscular Hemoglobin 31 pg (26-34); Mean Corpuscular Volume 94 fL (80-100); Platelet Count* 237 K/uL (140-440); Red Blood Count 3.69 m/uL (4.00-5.20); White Blood Count* 10.74 K/uL (4.50-11.00)
[2022-06-16 08:19] LABS: HCO3 VBG 25 mmol/L (21-28); PCO2 VBG 39 mmHG (40-50); PO2 VBG 30.2 mmHG (25-47); pH VBG 7.416 (7.32-7.43)
[2022-06-16 08:22] LABS: Slide Review Reflex No
[2022-06-16 08:50] LABS: INR 1.17 (0.91-1.10); Prothrombin Time 15.6 Seconds
[2022-06-16 08:54] LABS: Albumin* 3.3 g/dL (3.3-5.0); Chloride* 111 mmol/L (96-114)
[2022-06-16 08:55] LABS: Potassium* 3.1 mmol/L (3.6-5.1); Sodium* 140 mmol/L (135-149)
[2022-06-16 08:57] LABS: Alkaline Phosphatase* 54 U/L (40-150); Aspartate Amino Transferase* 102 U/L (12-35); Bilirubin Total* 0.3 mg/dL (0.1-1.5); Blood Urea Nitrogen* 18 mg/dL (7-30); Carbon Dioxide* 25 mmol/L (20-32); Creatine Kinase* 1551 U/L (41-117); Creatinine* 0.5 mg/dL (0.5-1.5); Estimated Glomerular Filt Rate 94 ml/min; Total Protein* 5.7 g/dL (6.0-8.3)
[2022-06-16 08:58] LABS: Alanine Aminotransferase* 51 U/L (4-35); Calcium* 8.3 mg/dL (8.4-10.6); Glucose* 94 mg/dL (60-115); Magnesium* 1.8 mg/dL (1.5-2.6)
[2022-06-16] MEDS: GABAPENTIN 600 MG TABLET PO ×2 (08:58→22:06)
[2022-06-16] MEDS: LOSARTAN POTASSIUM 50 MG TABLET 25 MG PO (08:58)
[2022-06-16] MEDS: AMLODIPINE 10 MG TABLET 5 MG PO (08:59)
[2022-06-16 09:00] LABS: C Reactive Protein* 4.3 mg/dL (0.5-1.0)
[2022-06-16 09:07] LABS: NT Pro B Type NatriureticPept* 499 PG/mL (0-450)
[2022-06-16 09:14] LABS: Procalcitonin* 0.09 ng/mL (<0.50)
[2022-06-16 09:16] LABS: Troponin I* < 0.01 ng/mL (0.01-0.04)
[2022-06-16] MEDS: ACETAMINOPHEN 325 MG TABLET 975 MG PO (10:01)
[2022-06-16 11:00] VITALS: BP 153/89; PULSE 93; RESP 18; TEMP 36.6; O2SAT 97
--- NOTE | 2022-06-16 13:57 | P.IMPN_ITS ---
Progress Note: A&P Assessment and plan (1) Fall: Problem details: Cause undetermined. COVID? abnl UA - culture pending, on IV Ancef. cause or result of fall? Status: Acute (2) Rhabdomyolysis: Problem details: Down trending CK still, normal renal function. Continue IV fluid hydration. Trend markers. Status: Acute Assessment and Plan: Anticipate possibly being able to stop IV fluids as early as tomorrow depending on how she is doing. (3) COVID-19: Problem details: + 06/14/2022 Loading dose of Remdesivir given plus one additional dose given, 1 more IV dose planned Status: Acute (4) Difficulty balancing: Problem details: slow decline; this will affect her discharge plan -OT/PT to eval and consider rehab/SNF placement Status: Acute Assessment and Plan: It is unclear to me if patient will be able to demonstrate safe ability to retu rn home during this hospitalization. For now continue to work with physical occupational therapy. Consider MRI of brain with particular attention to the cerebellum. CT scan of the head on presentation demonstrated: Involutional changes. Atrophy and white matter disease. Mildly dilated ventricles. Unchanged overall appearance since 2020. No acute posttraumatic finding. (5) Elevated LFTs: Problem details: likely related to prolonged immobilization, rhabdo, dehydration. will follow clinically Status: Acute (6) Essential hypertension: Problem details: restart home norvasc and losartan Status: Acute (7) Cellulitis: Problem details: LLE - looks more like inflammation and abrasions. Status: Acute Assessment and Plan: Stop IV antibiotics (8) Abrasion of skin of left lower leg: Status: Acute Assessment and Plan: Clean and treat the dry skin with emollient (9) Altered mental status: Problem details: Differential diagnosis includes COVID encephalopathy, post-traumatic concussion syndrome, evolving chronic cognitive impairment Status: Acute Assessment and Plan: I have asked our occupational therapy staff to perform a [place] exam on her for a baseline assessment (10) Dry skin dermatitis: Status: Acute Assessment and Plan: Vanicream twice daily Plan 1. Reviewed with patient 2. Answered patient's questions 3. Acknowledge patient's desire to return home if and when possible 4. Continue to work with physical and occupational therapy 5. Consider discontinuation of IV fluids tomorrow depending on laboratory results inpatient overall status. 6. Patient agreeable with above stated plans and recommendations Time Spent With Patient Total time spent: 40 minutes Subjective Time Seen by Provider: 11:00 Date Seen: 06/16/22 Interval history: Hospital day 3. 81-year-old woman who lives alone sustained a fall around 4:00 a.m. in the afternoon the day prior to admission and remained on the floor until 10:00 a.m. in the morning the following day, 18 hours. She does not recall the details of how she fell other than she thought she might have been reaching for something. She remembers thinking she might have injured her left shoulder from the fall and that she had a hard time moving or transferring herself, wondering if she might have a fractured shoulder. Eventually friends tried to come in but the door was locked and then health and safety manager was able to open the door and they found on the floor and brought into the emergency department for further assessment. In our emergency department she was found to be somewhat confused, no fracture shoulder, no fractured bones, to have rhabdomyolysis with CK greater than 7000, and coincidently was found to have COVID-19. Patient subsequently admitted for inpatient services. She indicates she is feeling better. Tolerating increased oral intakes. Still receiving IV fluids for the rhabdomyolysis. Denies nausea or vomiting. Denies chest heaviness, pressure, tightness, or pain. Denies syncope, near syncope, orthostasis, lightheadedness, vertigo. Acknowledges still having difficulty transferring and standing. Trying to work with physical therapy and occupational therapy. Exam Narrative: Exam Narrative: Appears comfortable in no acute distress. Talkative, friendly, articulate. Mood and affect are congruent. Alert, oriented to self, place, time, even to situation. Could not remember her maiden name. One of the hospital nurses who has known the patient for several years notice that the patient has no recollection of who she is. Lungs are clear to auscultation. Heart tones with regular rhythm. Abdomen is active bowel sounds, soft, nontender. No CVA tenderness. Abrasion of left lateral calf noted. No obvious cellulitis. Has dry skin of upper extremities and lower extremities. Const: Vital Signs, click to edit/add: Vital Signs - 24 hr 06/15/22 15:00 06/15/22 16:54 06/15/22 15:00 Temperature 99 F Pulse Rate 96 Pulse Rate [Left A pical] Respiratory Rate Blood Pressure [Ri ght Arm] Pulse Oximetry 95 Oxygen Delivery Me thod 06/15/22 15:00 06/15/22 15:00 06/15/22 15:00 Temperature 99 F Pulse Rate Pulse Rate [Left A pical] 99 99 Respiratory Rate 18 18 18 Blood Pressure [Ri ght Arm] 163/76 H Pulse Oximetry 95 95 Oxygen Delivery Me thod Room Air Room Air 06/15/22 19:19 06/15/22 19:00 06/15/22 23:00 Temperature 97.8 F 97.8 F Pulse Rate Pulse Rate [Left A pical] 98 Respiratory Rate 18 Blood Pressure [Ri ght Arm] 151/91 H Pulse Oximetry 99 95 Oxygen Delivery Me thod Room Air 06/15/22 23:00 06/15/22 23:00 06/15/22 23:00 Temperature 98.1 F Pulse Rate Pulse Rate [Left A pical] 101 H 101 H Respiratory Rate 18 18 20 Blood Pressure [Ri ght Arm] 155/78 H Pulse Oximetry 95 95 Oxygen Delivery Me thod Room Air Room Air 06/15/22 23:00 06/16/22 03:00 06/16/22 07:00 Temperature 98.2 F Pulse Rate 77 Pulse Rate [Left A pical] 105 H Respiratory Rate 20 Blood Pressure [Ri ght Arm] 150/71 H Pulse Oximetry 95 99 Oxygen Delivery Me thod Room Air 06/16/22 07:00 06/16/22 07:00 06/16/22 07:00 Temperature 98.7 F Pulse Rate Pulse Rate [Left A pical] 97 97 Respiratory Rate 18 18 18 Blood Pressure [Ri ght Arm] 147/106 H Pulse Oximetry 99 99 Oxygen Delivery Me thod Room Air Room Air 06/16/22 11:00 Temperature 97.8 F Pulse Rate Pulse Rate [Left A pical] 93 Respiratory Rate 18 Blood Pressure [Ri ght Arm] 153/89 H Pulse Oximetry 97 Oxygen Delivery Me thod Room Air Documenting provider has reviewed patient's vital signs: yes Labs Labs: Laboratory Results - last 24 hr 06/16/22 06/16/22 06/16/22 08:09 08:09 08:09 WBC 10.74 RBC 3.69 L Hgb 11.4 L Hct 34.6 MCV 94 MCH 31 MCHC 33 Plt Count 237 INR 1.17 H VBG pH VBG pCO2 VBG pO2 VBG HCO3 Sodium 140 Potassium 3.1 L Chloride 111 Carbon Dioxide 25 BUN 18 Creatinine 0.5 Estimated Creat Clear 34.30 Estimated GFR 94 Glucose 94 Calcium 8.3 L Magnesium 1.8 Total Bilirubin 0.3 AST 102 H ALT 51 H Alkaline Phosphatase 54 Total Creatine Kinase 1551 H Troponin I < 0.01 L C-Reactive Protein 4.3 H NT-Pro-B Natriuret Pep 499 H Total Protein 5.7 L Albumin 3.3 Procalcitonin 0.09 06/16/22 08:09 WBC RBC Hgb Hct MCV MCH MCHC Plt Count INR VBG pH 7.416 VBG pCO2 39 L VBG pO2 30.2 VBG HCO3 25 Sodium Potassium Chloride Carbon Dioxide BUN Creatinine Estimated Creat Clear Estimated GFR Glucose Calcium Magnesium Total Bilirubin AST ALT Alkaline Phosphatase Total Creatine Kinase Troponin I C-Reactive Protein NT-Pro-B Natriuret Pep Total Protein Albumin Procalcitonin
[2022-06-16 15:00] VITALS: BP 152/68; PULSE 95; PULSE 97; RESP 18; TEMP 36.7; O2SAT 97
[2022-06-16] MEDS: POTASSIUM BICARB 25 MEQ EFFERVESCENT TAB PO ×2 (15:51→18:27)
--- NOTE | 2022-06-16 19:07 | PC.NURSE ---
?pt pleasant and cooperative. EZ stand for transfers this morning but walker and GB this afternoon, pt tolerated well. pt incont, requiring brief changes, linens changed x 2. VSS. O2 > 97%. LLE cellulitis outlined. Mepi on right kennedy. Tele: NSR.
[2022-06-16 21:30] VITALS: BP 155/83; PULSE 93; RESP 20; TEMP 36.7; O2SAT 97
[2022-06-16] MEDS: ENOXAPARIN 40 MG/0.4 ML INJ SUBCUT (22:05)
[2022-06-16] MEDS: POTASSIUM CHLORIDE 10 MEQ CAPSULE ER 40 MEQ PO (22:05)
[2022-06-16] MEDS: EMOLLIENT BASE CREAM 1 APPLIC TOPICAL (22:06)
[2022-06-16 23:00] VITALS: BP 164/74; PULSE 89; PULSE 98; RESP 20; O2SAT 95
[2022-06-17 03:00] VITALS: O2SAT 95
[2022-06-17 07:00] VITALS: BP 157/76; PULSE 97; PULSE 99; RESP 18; TEMP 36.4; O2SAT 95
[2022-06-17 07:12] LABS: HCO3 VBG 28 mmol/L (21-28); PCO2 VBG 42 mmHG (40-50); PO2 VBG 30.6 mmHG (25-47); pH VBG 7.437 (7.32-7.43)
[2022-06-17 07:23] LABS: Hematocrit 39.9 % (33.0-51.0); Hemoglobin* 13.3 gm/dL (12.0-16.0); Mean Corpuscular HGB Conc 33 gm/dL (32-36); Mean Corpuscular Hemoglobin 31 pg (26-34); Mean Corpuscular Volume 93 fL (80-100); Platelet Count* 287 K/uL (140-440); Red Blood Count 4.31 m/uL (4.00-5.20); Slide Review Reflex No; White Blood Count* 10.84 K/uL (4.50-11.00)
[2022-06-17 07:28] LABS: Chloride* 106 mmol/L (96-114)
[2022-06-17 07:29] LABS: Albumin* 3.9 g/dL (3.3-5.0); Potassium* 3.7 mmol/L (3.6-5.1); Sodium* 140 mmol/L (135-149)
[2022-06-17 07:31] LABS: Creatinine* 0.6 mg/dL (0.5-1.5); Estimated Glomerular Filt Rate 90 ml/min
[2022-06-17 07:32] LABS: Alanine Aminotransferase* 49 U/L (4-35); Alkaline Phosphatase* 65 U/L (40-150); Aspartate Amino Transferase* 82 U/L (12-35); Bilirubin Total* 0.5 mg/dL (0.1-1.5); Blood Urea Nitrogen* 13 mg/dL (7-30); Carbon Dioxide* 28 mmol/L (20-32); Total Protein* 6.4 g/dL (6.0-8.3)
[2022-06-17 07:33] LABS: Calcium* 8.9 mg/dL (8.4-10.6); Glucose* 118 mg/dL (60-115); Magnesium* 1.8 mg/dL (1.5-2.6)
[2022-06-17 07:35] LABS: C Reactive Protein* 3.8 mg/dL (0.5-1.0)
[2022-06-17 07:41] LABS: NT Pro B Type NatriureticPept* 519 PG/mL (0-450)
--- NOTE | 2022-06-17 07:41 | PC.NURSE ---
END OF SHIFT NOTE: PT PLEASANT AND COOPERATIVE. VSS ON RA; AFEBRILE. PT INCONTINENT OF BOWEL AND BLADDER. PT WEAK AND REQUIRES A LOT OF ENCOURAGEMENT TO MOVE AND HELP WITH TRANSFERS. RIGHT AC IV LEAKING AND DC'D. NEW IV IN RIGHT HAND. LSCTA. VANICREAM APPLIED TO LEFT LEG. RIGHT HARDING DRESSING CDI. TELE READS NSR.
[2022-06-17 07:45] LABS: Troponin I* < 0.01 ng/mL (0.01-0.04)
[2022-06-17 07:49] LABS: Procalcitonin* 0.08 ng/mL (<0.50)
[2022-06-17 08:12] LABS: INR 1.18 (0.91-1.10); Prothrombin Time 15.7 Seconds
[2022-06-17 08:17] LABS: Creatine Kinase* 955 U/L (41-117)
[2022-06-17] MEDS: GABAPENTIN 600 MG TABLET PO ×2 (09:29→20:32)
[2022-06-17] MEDS: LOSARTAN POTASSIUM 50 MG TABLET 25 MG PO (09:29)
[2022-06-17] MEDS: ACETAMINOPHEN 325 MG TABLET 975 MG PO ×2 (09:29→18:36)
[2022-06-17] MEDS: AMLODIPINE 10 MG TABLET 5 MG PO (09:29)
[2022-06-17] MEDS: EMOLLIENT BASE CREAM 1 APPLIC TOPICAL ×2 (09:30→20:33)
[2022-06-17 11:00] VITALS: BP 161/81; PULSE 95; RESP 14; TEMP 36.7; O2SAT 96
[2022-06-17 15:00] VITALS: BP 157/83; PULSE 103; PULSE 96; RESP 20; TEMP 36.6; O2SAT 96
--- NOTE | 2022-06-17 16:36 | PM.IMPN1 ---
Progress Note: A&P Assessment and plan (1) Fall: Problem details: Cause undetermined. COVID? abnl UA - culture pending, on IV Ancef. cause or result of fall? Status: Acute Assessment and Plan: Continues to have an unstable gait. (2) Rhabdomyolysis: Problem details: Down trending CK still, normal renal function. Continue IV fluid hydration. Trend markers. Status: Acute Assessment and Plan: We stop the IV fluids for now. Will reassess CK in the morning. Will likely need more IV fluids. (3) COVID-19: Problem details: + 06/14/2022 Loading dose of Remdesivir given plus 2 additional dose given, no more IV dose planned Status: Acute (4) Difficulty balancing: Problem details: slow decline; this will affect her discharge plan -OT/PT to eval and consider rehab/SNF placement Status: Acute Assessment and Plan: Given the persistent nature of the patient's problems which seem to be relatively acute I will order an MR scan of the brain tomorrow. (5) Elevated LFTs: Problem details: likely related to prolonged immobilization, rhabdo, dehydration. will follow clinically Status: Acute Assessment and Plan: Very slowly normalizing. (6) Essential hypertension: Problem details: restart home norvasc and losartan Status: Acute Assessment and Plan: Adequately managed for now. (7) Cellulitis: Problem details: LLE - looks more like inflammation and abrasions. Status: Acute Assessment and Plan: Stopped IV antibiotics yesterday. (8) Abrasion of skin of left lower leg: Status: Acute Assessment and Plan: Appears clean and dry. (9) Altered mental status: Problem details: Differential diagnosis includes COVID encephalopathy, post-traumatic concussion syndrome, evolving chronic cognitive impairment Status: Acute Assessment and Plan: Continue to work with occupational therapy. Not able to discern problems to figure out a problem solved. When we indicate that there is a problem she does not seem to recognize it as such. This is concerning for her safety and ability to live independently. (10) Dry skin dermatitis: Status: Acute Plan 1. Will continue to work with patient. I have indicated to her that it is unclear to me that she is able to safely return home at this time. 2. Will need to consider discharge planning carefully with our hospital staff, patient, and patient family as warranted. It is looking more likely that she is not able to return home directly from the hospital due to her weakness, loss of balance, inability to problem solve safely. Time Spent With Patient Total time spent: 30 minutes Subjective Time Seen by Provider: 09:00 Date Seen: 06/17/22 Interval history: Hospital day 3. 81-year-old woman who lives alone sustained a fall around 4:00 a.m. in the afternoon the day prior to admission and remained on the floor until 10:00 a.m. in the morning the following day, 18 hours. She does not recall the details of how she fell other than she thought she might have been reaching for something. She remembers thinking she might have injured her left shoulder from the fall and that she had a hard time moving or transferring herself, wondering if she might have a fractured shoulder. Eventually friends tried to come in but the door was locked and then security and compliance project manager was able to open the door and they found on the floor and brought into the emergency department for further assessment. In our emergency department she was found to be somewhat confused, no fracture shoulder, no fractured bones, to have rhabdomyolysis with CK greater than 7000, and coincidently was found to have COVID-19. Patient subsequently admitted for inpatient services. She indicates she is feeling well. Tolerating increased oral intakes. Still was receiving IV fluids for the rhabdomyolysis, but these have been placed on hold since last night. Denies nausea or vomiting. Denies chest heaviness, pressure, tightness, or pain. Denies syncope, near syncope, orthostasis, lightheadedness, vertigo. Acknowledges still having difficulty transferring and standing. Trying to work with physical therapy and occupational therapy. Nursing staff note that patient is not making limon or safe choices. For instance, she asked the nurses not to change her incontinence briefs because she states she is going to what them again any way. Additionally the patient had stool incontinence and did not think to notify anyone that she had stool incontinence. Exam Narrative: Exam Narrative: Awake, alert, oriented to self and place not to time or situation. At times she is more aware. Other times she is more confused. This is not necessarily any different from yesterday. Appears comfortable in no acute distress. Articulate and cooperative. Friendly. Lungs clear to auscultation. Heart tones with regular rhythm. Abdomen with active bowel sounds, soft, nontender. Extremities without edema. Skin is intact. No focal motor neurologic deficits. No tremor, asterixis, or ataxia. Const: Vital Signs, click to edit/add: Vital Signs - 24 hr 06/16/22 21:30 06/16/22 23:00 06/16/22 23:00 Temperature 98.0 F Pulse Rate 89 Pulse Rate [Left A pical] 93 Pulse Rate [Pulse Oximeter] Respiratory Rate 20 Blood Pressure [Le ft Arm] Blood Pressure [Ri ght Arm] 155/83 H Pulse Oximetry 97 95 Oxygen Delivery Me thod Room Air 06/16/22 23:00 06/16/22 23:00 06/16/22 23:00 Temperature Pulse Rate Pulse Rate [Left A pical] Pulse Rate [Pulse Oximeter] 98 98 Respiratory Rate 20 20 20 Blood Pressure [Le ft Arm] Blood Pressure [Ri ght Arm] 164/74 H Pulse Oximetry 95 95 Oxygen Delivery Dc thod Room Air Room Air 06/17/22 03:00 06/17/22 07:00 06/17/22 07:00 Temperature 97.6 F Pulse Rate Pulse Rate [Left A pical] Pulse Rate [Pulse Oximeter] 99 Respiratory Rate 18 Blood Pressure [Le ft Arm] 157/76 H Blood Pressure [Ri ght Arm] Pulse Oximetry 95 95 95 Oxygen Delivery Me thod Room Air Room Air 06/17/22 07:00 06/17/22 07:00 06/17/22 07:00 Temperature Pulse Rate 97 Pulse Rate [Left A pical] Pulse Rate [Pulse Oximeter] 99 Respiratory Rate 18 18 Blood Pressure [Le ft Arm] Blood Pressure [Ri ght Arm] Pulse Oximetry 95 Oxygen Delivery Dc thod Room Air 06/17/22 11:00 06/17/22 15:00 06/17/22 15:00 Temperature 98.1 F 98 F Pulse Rate 103 H Pulse Rate [Left A pical] Pulse Rate [Pulse Oximeter] 95 96 Respiratory Rate 14 20 Blood Pressure [Le ft Arm] 161/81 H 157/83 H Blood Pressure [Ri ght Arm] Pulse Oximetry 96 96 Oxygen Delivery Me thod Room Air Room Air Documenting provider has reviewed patient's vital signs: yes Labs Labs: Laboratory Results - last 24 hr 06/17/22 06/17/22 06/17/22 06:49 06:49 06:49 WBC 10.84 RBC 4.31 Hgb 13.3 Hct 39.9 MCV 93 MCH 31 MCHC 33 Plt Count 287 INR 1.18 H VBG pH VBG pCO2 VBG pO2 VBG HCO3 Sodium 140 Potassium 3.7 Chloride 106 Carbon Dioxide 28 BUN 13 Creatinine 0.6 Estimated Creat Clear 34.30 Estimated GFR 90 Glucose 118 H Calcium 8.9 Magnesium 1.8 Total Bilirubin 0.5 AST 82 H ALT 49 H Alkaline Phosphatase 65 Total Creatine Kinase 955 H Troponin I < 0.01 L C-Reactive Protein 3.8 H NT-Pro-B Natriuret Pep 519 H Total Protein 6.4 Albumin 3.9 Procalcitonin 0.08 06/17/22 06:49 WBC RBC Hgb Hct MCV MCH MCHC Plt Count INR VBG pH 7.437 H VBG pCO2 42 VBG pO2 30.6 VBG HCO3 28 Sodium Potassium Chloride Carbon Dioxide BUN Creatinine Estimated Creat Clear Estimated GFR Glucose Calcium Magnesium Total Bilirubin AST ALT Alkaline Phosphatase Total Creatine Kinase Troponin I C-Reactive Protein NT-Pro-B Natriuret Pep Total Protein Albumin Procalcitonin
--- NOTE | 2022-06-17 18:23 | PC.NURSE ---
End of Shift: Patient pleasant and cooperative. Patient vitally stable, lung clear, BS WNL, IV intact. Patient denies pain but requests tylenol for comfort. Pulse ox above 90%, generally at 96%, RA. Patient tolerating regular diet, ate breakfast and late lunch, no dinner. Patient is ez stand/ 2 assist for transfer. Patient can stand at recliner with 1 assist/walker to change out pad. Patient incontinent of urine and does not let one know when wet, unless customs entry writer asks. Patient has been up in chair all shift.
[2022-06-17 19:00] VITALS: BP 151/74; PULSE 102; RESP 18; TEMP 36.4; O2SAT 93
[2022-06-17] MEDS: ENOXAPARIN 40 MG/0.4 ML INJ SUBCUT (20:32)
[2022-06-17 23:00] VITALS: BP 150/99; PULSE 75; PULSE 98; RESP 18; TEMP 36.4; O2SAT 95
[2022-06-18] VITALS (11 sets, daily range): BP systolic 136–175; BP diastolic 73–90; PULSE 75–99; RESP 15–20; TEMP 36.6–36.8; O2SAT 94–97
--- NOTE | 2022-06-18 04:52 | PC.NURSE ---
Shift note: Pt doing well with assist of 2, walker and GB ambulation to and from bathroom. Dressing to the kennedy appears clean and dry. Denied pain this shift. Systolic Bp has consistently been high above 140 but no symptom noted. Pt has been sleeping most of the shift.
[2022-06-18 06:56] LABS: HCO3 VBG 29 mmol/L (21-28); PCO2 VBG 40 mmHG (40-50); PO2 VBG 64.6 mmHG (25-47); pH VBG 7.475 (7.32-7.43)
[2022-06-18 07:01] LABS: Hematocrit 39.1 % (33.0-51.0); Hemoglobin* 13.1 gm/dL (12.0-16.0); Mean Corpuscular HGB Conc 34 gm/dL (32-36); Mean Corpuscular Hemoglobin 31 pg (26-34); Mean Corpuscular Volume 92 fL (80-100); Platelet Count* 302 K/uL (140-440); Red Blood Count 4.25 m/uL (4.00-5.20); White Blood Count* 8.63 K/uL (4.50-11.00)
[2022-06-18 07:13] LABS: INR 1.15 (0.91-1.10); Prothrombin Time 15.4 Seconds
[2022-06-18 07:14] LABS: Slide Review Reflex No
[2022-06-18 07:15] LABS: Albumin* 3.5 g/dL (3.3-5.0); Chloride* 107 mmol/L (96-114); Sodium* 140 mmol/L (135-149)
[2022-06-18 07:16] LABS: Potassium* 3.3 mmol/L (3.6-5.1)
[2022-06-18 07:18] LABS: Creatinine* 0.5 mg/dL (0.5-1.5); Estimated Glomerular Filt Rate 94 ml/min
[2022-06-18 07:19] LABS: Alanine Aminotransferase* 42 U/L (4-35); Alkaline Phosphatase* 60 U/L (40-150); Aspartate Amino Transferase* 55 U/L (12-35); Bilirubin Total* 0.4 mg/dL (0.1-1.5); Blood Urea Nitrogen* 13 mg/dL (7-30); Carbon Dioxide* 29 mmol/L (20-32); Creatine Kinase* 408 U/L (41-117); Glucose* 112 mg/dL (60-115); Magnesium* 1.9 mg/dL (1.5-2.6); Total Protein* 6.1 g/dL (6.0-8.3)
[2022-06-18 07:21] LABS: C Reactive Protein* 3.1 mg/dL (0.5-1.0)
[2022-06-18 07:27] LABS: NT Pro B Type NatriureticPept* 266 PG/mL (0-450)
[2022-06-18 07:34] LABS: Procalcitonin* 0.07 ng/mL (<0.50)
[2022-06-18 07:39] LABS: Troponin I* < 0.01 ng/mL (0.01-0.04)
[2022-06-18] MEDS: AMLODIPINE 10 MG TABLET 5 MG PO (09:33)
[2022-06-18] MEDS: GABAPENTIN 600 MG TABLET PO ×2 (09:35→21:03)
[2022-06-18] MEDS: LOSARTAN POTASSIUM 50 MG TABLET 25 MG PO (09:35)
[2022-06-18] MEDS: SODIUM CHLORIDE 0.9 % (FLUSH) 10 ML SYRINGE 5 ML IVF ×2 (09:36→21:07)
[2022-06-18] MEDS: EMOLLIENT BASE CREAM 1 APPLIC TOPICAL ×2 (09:37→21:04)
[2022-06-18] MEDS: POTASSIUM BICARB 25 MEQ EFFERVESCENT TAB PO ×3 (16:32→21:04)
[2022-06-18] MEDS: 0.9 % SODIUM CHLORIDE 1000 ml 1,000 ML IV (16:32)
--- NOTE | 2022-06-18 16:35 | P.IMPN_ITS ---
Progress Note: A&P Assessment and plan (1) Fall: Problem details: Cause undetermined. COVID? abnl UA - culture pending. cause or result of fall? Status: Acute (2) Rhabdomyolysis: Problem details: Down trending CK still, normal renal function. Continue IV fluid hydration. Trend markers. Status: Acute (3) COVID-19: Problem details: + 06/14/2022 Loading dose of Remdesivir given plus 2 additional dose given, no more IV dose planned Status: Acute (4) Difficulty balancing: Problem details: slow decline; this will affect her discharge plan -OT/PT to eval and consider rehab/SNF placement Status: Acute (5) Elevated LFTs: Problem details: likely related to prolonged immobilization, rhabdo, dehydration. will follow clinically Status: Acute (6) Essential hypertension: Problem details: restart home norvasc and losartan Status: Acute (7) Cellulitis: Problem details: LLE - looks more like inflammation and abrasions. Status: Acute (8) Abrasion of skin of left lower leg: Status: Acute (9) Altered mental status: Problem details: Differential diagnosis includes COVID encephalopathy, post-traumatic concussion syndrome, evolving chronic cognitive impairment Status: Acute (10) Dry skin dermatitis: Status: Acute (11) UTI (urinary tract infection): Problem details: Pseudomonas and E coli Status: Acute Plan 1. Reviewed impression with patient. 2. Answered her questions. 3. Initiate treatment for presumed UTI. Will use ciprofloxacin 250 mg twice daily for 5 days. 4. Continue to work with social science research assistant to try to establish a safe discharge disposition plan. Patient now agreeable to short-term transitional care services. 5. Continue with other supportive efforts. Time Spent With Patient Total time spent: 30 minutes Subjective Time Seen by Provider: 14:30 Date Seen: 06/18/22 Interval history: Hospital day 3. 81-year-old woman who lives alone sustained a fall around 4:00 a.m. in the afternoon the day prior to admission and remained on the floor until 10:00 a.m. in the morning the following day, 18 hours. She does not recall the details of how she fell other than she thought she might have been reaching for something. She remembers thinking she might have injured her left shoulder from the fall and that she had a hard time moving or transferring herself, wondering if she might have a fractured shoulder. Eventually friends tried to come in but the door was locked and then security operations manager was able to open the door and they found on the floor and brought into the emergency department for further assessment. In our emergency department she was found to be somewhat confused, no fracture shoulder, no fractured bones, to have rhabdomyolysis with CK greater than 7000, and coincidently was found to have COVID-19. Patient subsequently admitted for inpatient services. She indicates she is feeling well. Tolerating increased oral intakes. No longer receiving IV fluids for rhabdomyolysis. Denies nausea or vomiting. Denies chest heaviness, pressure, tightness, or pain. Denies syncope, near syncope, orthostasis, lightheadedness, vertigo. Acknowledges still having difficulty transferring and standing. Trying to work with physical therapy and occupational therapy. Patient now willing to consider transitional care services when she is ready for discharge from the hospital. Exam Narrative: Exam Narrative: No acute distress, appears comfortable. Alert and oriented to self and place, somewhat to time, somewhat to situation. Friendly, articulate, cooperative. Mood and affect are congruent. Neck is supple. Midline trachea. Lungs are clear to auscultation. No CVA tenderness. Heart tones with regular rhythm. Abdomen is benign. Extremities without edema. Skin is warm, dry, intact. No obvious focal motor neurologic deficits. Takes assist of 1 in order for her to transfer and pivot. Const: Vital Signs, click to edit/add: Vital Signs - 24 hr 06/17/22 19:00 06/17/22 23:00 06/17/22 23:00 Temperature 97.6 F Pulse Rate 75 Pulse Rate [Left A pical] Pulse Rate [Pulse Oximeter] 102 H Respiratory Rate 18 Blood Pressure [Le ft Arm] 151/74 H Blood Pressure [Ri ght Arm] Pulse Oximetry 93 95 Oxygen Delivery Me thod Room Air 06/17/22 23:00 06/17/22 23:00 06/17/22 23:00 Temperature 97.5 F L Pulse Rate Pulse Rate [Left A pical] Pulse Rate [Pulse Oximeter] 98 98 Respiratory Rate 18 18 18 Blood Pressure [Le ft Arm] 150/99 H Blood Pressure [Ri ght Arm] Pulse Oximetry 95 95 Oxygen Delivery Me thod Room Air Room Air 06/18/22 03:00 06/18/22 07:37 06/18/22 08:30 Temperature 97.8 F Pulse Rate 75 Pulse Rate [Left A pical] Pulse Rate [Pulse Oximeter] 99 Respiratory Rate 18 Blood Pressure [Le ft Arm] 168/90 H Blood Pressure [Ri ght Arm] Pulse Oximetry 95 97 Oxygen Delivery Me thod Room Air 06/18/22 08:30 06/18/22 08:30 06/18/22 11:00 Temperature 98.3 F 98.3 F Pulse Rate Pulse Rate [Left A pical] 96 Pulse Rate [Pulse Oximeter] 93 96 Respiratory Rate 15 15 Blood Pressure [Le ft Arm] 153/90 H Blood Pressure [Ri ght Arm] 144/87 H Pulse Oximetry 97 97 95 Oxygen Delivery Me thod Room Air Room Air Room Air 06/18/22 15:00 06/18/22 15:00 06/18/22 15:00 Temperature Pulse Rate Pulse Rate [Left A pical] Pulse Rate [Pulse Oximeter] 77 Respiratory Rate 15 Blood Pressure [Le ft Arm] Blood Pressure [Ri ght Arm] Pulse Oximetry 95 95 Oxygen Delivery Me thod Room Air 06/18/22 15:00 06/18/22 15:40 Temperature 98.1 F Pulse Rate 79 Pulse Rate [Left A pical] 95 Pulse Rate [Pulse Oximeter] 77 Respiratory Rate 16 Blood Pressure [Le ft Arm] Blood Pressure [Ri ght Arm] 136/73 Pulse Oximetry 95 Oxygen Delivery Me thod Room Air Documenting provider has reviewed patient's vital signs: yes Labs Labs: Laboratory Results - last 24 hr 06/18/22 06/18/22 06/18/22 06:40 06:40 06:40 WBC 8.63 RBC 4.25 Hgb 13.1 Hct 39.1 MCV 92 MCH 31 MCHC 34 Plt Count 302 INR 1.15 H VBG pH VBG pCO2 VBG pO2 VBG HCO3 Sodium 140 Potassium 3.3 L Chloride 107 Carbon Dioxide 29 BUN 13 Creatinine 0.5 Estimated Creat Clear 34.30 Estimated GFR 94 Glucose 112 Calcium 9.0 Magnesium 1.9 Total Bilirubin 0.4 AST 55 H ALT 42 H Alkaline Phosphatase 60 Total Creatine Kinase 408 H Troponin I < 0.01 L C-Reactive Protein 3.1 H NT-Pro-B Natriuret Pep 266 Total Protein 6.1 Albumin 3.5 Procalcitonin 0.07 06/18/22 06:40 WBC RBC Hgb Hct MCV MCH MCHC Plt Count INR VBG pH 7.475 H VBG pCO2 40 VBG pO2 64.6 H VBG HCO3 29 H Sodium Potassium Chloride Carbon Dioxide BUN Creatinine Estimated Creat Clear Estimated GFR Glucose Calcium Magnesium Total Bilirubin AST ALT Alkaline Phosphatase Total Creatine Kinase Troponin I C-Reactive Protein NT-Pro-B Natriuret Pep Total Protein Albumin Procalcitonin
--- NOTE | 2022-06-18 17:48 | PC.NURSE ---
Patient alert and oriented x 4, lungs sounds are clear, has dry nonproductive cough, O2 sats 92-98% room air. Up with 2 assist from bed to chair, incontinent of urine, soaked through 3 pads, scabbed over carpet burn to left calf/kennedy cleansed and Kristen cream applied. Denies pain. Aerobika given to patient and encouraged use.
[2022-06-18] MEDS: ENOXAPARIN 40 MG/0.4 ML INJ SUBCUT (21:03)
[2022-06-18] MEDS: CIPROFLOXACIN 250 MG TABLET PO (21:03)
[2022-06-19] VITALS (7 sets, daily range): BP systolic 133–183; BP diastolic 54–96; PULSE 77–97; RESP 16–18; TEMP 36.3–36.9; O2SAT 94–97
--- NOTE | 2022-06-19 03:37 | PC.NURSE ---
19: Pt resting in bed all shift, t&r well, incontinent of urine x3, i&o adeq, vss on ra, encouraged tcdb.
[2022-06-19 07:18] LABS: HCO3 VBG 31 mmol/L (21-28); PCO2 VBG 41 mmHG (40-50); PO2 VBG 53.3 mmHG (25-47)
[2022-06-19 07:21] LABS: Hematocrit 39.9 % (33.0-51.0); Hemoglobin* 13.2 gm/dL (12.0-16.0); Mean Corpuscular HGB Conc 33 gm/dL (32-36); Mean Corpuscular Hemoglobin 31 pg (26-34); Mean Corpuscular Volume 92 fL (80-100); Platelet Count* 267 K/uL (140-440); Red Blood Count 4.33 m/uL (4.00-5.20); White Blood Count* 8.39 K/uL (4.50-11.00)
[2022-06-19 07:24] LABS: Slide Review Reflex No
[2022-06-19 07:43] LABS: Chloride* 106 mmol/L (96-114)
[2022-06-19 07:44] LABS: Albumin* 3.7 g/dL (3.3-5.0); INR 1.03 (0.91-1.10); Potassium* 4.3 mmol/L (3.6-5.1); Prothrombin Time 14.2 Seconds
[2022-06-19 07:46] LABS: Creatinine* 0.5 mg/dL (0.5-1.5); Estimated Glomerular Filt Rate 94 ml/min
[2022-06-19 07:47] LABS: Alanine Aminotransferase* 45 U/L (4-35); Alkaline Phosphatase* 51 U/L (40-150); Aspartate Amino Transferase* 57 U/L (12-35); Bilirubin Total* 0.6 mg/dL (0.1-1.5); Blood Urea Nitrogen* 17 mg/dL (7-30); Carbon Dioxide* 30 mmol/L (20-32); Creatine Kinase* 269 U/L (41-117); Glucose* 105 mg/dL (60-115); Total Protein* 6.3 g/dL (6.0-8.3)
[2022-06-19 07:48] LABS: Calcium* 8.9 mg/dL (8.4-10.6); Magnesium* 1.9 mg/dL (1.5-2.6)
[2022-06-19 07:55] LABS: NT Pro B Type NatriureticPept* 158 PG/mL (0-450)
[2022-06-19 07:59] LABS: Troponin I* < 0.01 ng/mL (0.01-0.04)
[2022-06-19 08:02] LABS: Procalcitonin* 0.07 ng/mL (<0.50)
[2022-06-19 08:03] LABS: Sodium* 139 mmol/L (135-149)
[2022-06-19] MEDS: CIPROFLOXACIN 250 MG TABLET PO ×2 (08:53→21:05)
[2022-06-19] MEDS: GABAPENTIN 600 MG TABLET PO ×2 (08:53→21:05)
[2022-06-19] MEDS: SODIUM CHLORIDE 0.9 % (FLUSH) 10 ML SYRINGE 5 ML IVF (08:53)
[2022-06-19] MEDS: AMLODIPINE 10 MG TABLET 5 MG PO (08:53)
[2022-06-19] MEDS: EMOLLIENT BASE CREAM 1 APPLIC TOPICAL ×2 (08:54→21:05)
[2022-06-19] MEDS: POTASSIUM CHLORIDE 10 MEQ CAPSULE ER 20 MEQ PO (08:54)
[2022-06-19] MEDS: LOSARTAN POTASSIUM 50 MG TABLET 25 MG PO (08:54)
[2022-06-19] MEDS: AMLODIPINE 5 MG TABLET PO (11:51)
--- NOTE | 2022-06-19 16:13 | P.IMPN_ITS ---
Progress Note: A&P Assessment and plan (1) Fall: Problem details: Cause undetermined. COVID? abnl UA - culture pending. cause or result of fall? Status: Acute (2) Rhabdomyolysis: Problem details: Down trending CK still, normal renal function. IV fluids have been stopped. Trend markers. Status: Acute (3) COVID-19: Problem details: + 06/14/2022 Loading dose of Remdesivir given plus 2 additional dose given, no more IV dose planned Status: Acute (4) Difficulty balancing: Problem details: slow decline; this will affect her discharge plan -OT/PT to eval and consider rehab/SNF placement Status: Acute Assessment and Plan: Still requiring assist with transfers and ambulation but much improved from previously (5) Elevated LFTs: Problem details: likely related to prolonged immobilization, rhabdo, dehydration. will follow clinically Status: Acute (6) Essential hypertension: Problem details: restart home norvasc and losartan Status: Acute Assessment and Plan: Increase the dose of amlodipine from 5 mg daily to 10 mg daily. Increased dose of losartan from 25 mg daily to 50 mg daily. (7) Cellulitis: Problem details: LLE - looks more like inflammation and abrasions. Status: Acute (8) Abrasion of skin of left lower leg: Status: Acute (9) Altered mental status: Problem details: Differential diagnosis includes COVID encephalopathy, post-traumatic concussion syndrome, evolving chronic cognitive impairment Status: Acute (10) Dry skin dermatitis: Status: Acute (11) UTI (urinary tract infection): Problem details: Pseudomonas and E coli Status: Acute Assessment and Plan: Tolerating ciprofloxacin. Plan 1. Working on discharge disposition plan. 2. Continue with other supportive efforts. Time Spent With Patient Total time spent: 30 minutes Subjective Time Seen by Provider: 11:30 Date Seen: 06/19/22 Interval history: Hospital day 6. 81-year-old woman who lives alone sustained a fall around 4:00 a.m. in the afternoon the day prior to admission and remained on the floor until 10:00 a.m. in the morning the following day, 18 hours. She does not recall the details of how she fell other than she thought she might have been reaching for something. She remembers thinking she might have injured her left shoulder from the fall and that she had a hard time moving or transferring herself, wondering if she might have a fractured shoulder. Eventually friends tried to come in but the door was locked and then lending manager was able to open the door and they found on the floor and brought into the emergency department for further assessment. In our emergency department she was found to be somewhat confused, no fracture shoulder, no fractured bones, to have rhabdomyolysis with CK greater than 7000, and coincidently was found to have COVID-19. Patient subsequently admitted for inpatient services. She indicates she is feeling well. Tolerating increased oral intakes. No longer receiving IV fluids for rhabdomyolysis. Denies nausea or vomiting. Denies chest heaviness, pressure, tightness, or pain. Denies syncope, near syncope, orthostasis, lightheadedness, vertigo. She continues to work with physical therapy and occupational therapy. Patient was able to walk a few steps today with use of gait belt, walker, assist of 1. Patient still willing to consider transitional care services when she is ready for discharge from the hospital. Exam Narrative: Exam Narrative: Appears comfortable and in no acute distress. Articulate, cooperative, friendly. Mood and affect are congruent. Alert and oriented to self and place, in part to time and situation. Still not able to problem solve well. Still not able to ascertain certain dangerous situations. Lungs clear to auscultation. Heart tones with regular rhythm. Abdomen with active bowel sounds, soft, nontender. Extremities without edema. Skin is warm, dry, intact. No focal motor neurologic deficits. Const: Vital Signs, click to edit/add: Vital Signs - 24 hr 06/18/22 21:21 06/18/22 22:21 06/18/22 22:21 Temperature 98 F Pulse Rate Pulse Rate [Pulse Oximeter] 90 Respiratory Rate 20 Blood Pressure [Le ft Arm] 162/78 H Pulse Oximetry 94 94 94 Oxygen Delivery Me thod Room Air Room Air 06/18/22 22:45 06/18/22 23:18 06/18/22 23:54 Temperature 98.2 F Pulse Rate 90 Pulse Rate [Pulse Oximeter] 90 93 Respiratory Rate 18 Blood Pressure [Le ft Arm] 175/77 H Pulse Oximetry 95 Oxygen Delivery Me thod Room Air 06/19/22 04:00 06/19/22 07:20 06/19/22 08:20 Temperature 98.4 F Pulse Rate 77 Pulse Rate [Pulse Oximeter] 82 Respiratory Rate 18 Blood Pressure [Le ft Arm] 167/82 H Pulse Oximetry 94 97 Oxygen Delivery Me thod Room Air 06/19/22 08:20 06/19/22 08:20 06/19/22 11:48 Temperature 98.1 F 97.4 F L Pulse Rate Pulse Rate [Pulse Oximeter] 88 97 Respiratory Rate 18 18 Blood Pressure [Le ft Arm] 183/96 H 144/79 H Pulse Oximetry 97 97 95 Oxygen Delivery Me thod Room Air Room Air Room Air 06/19/22 15:00 06/19/22 15:00 06/19/22 15:00 Temperature 98.0 F Pulse Rate Pulse Rate [Pulse Oximeter] 88 Respiratory Rate 18 Blood Pressure [Le ft Arm] 133/76 Pulse Oximetry 94 94 94 Oxygen Delivery Me thod Room Air Room Air Documenting provider has reviewed patient's vital signs: yes Labs Labs: Laboratory Results - last 24 hr 06/19/22 06/19/22 06/19/22 06:50 06:50 06:50 WBC 8.39 RBC 4.33 Hgb 13.2 Hct 39.9 MCV 92 MCH 31 MCHC 33 Plt Count 267 INR 1.03 VBG pH VBG pCO2 VBG pO2 VBG HCO3 Sodium 139 Potassium 4.3 Chloride 106 Carbon Dioxide 30 BUN 17 Creatinine 0.5 Estimated Creat Clear 34.30 Estimated GFR 94 Glucose 105 Calcium 8.9 Magnesium 1.9 Total Bilirubin 0.6 AST 57 H ALT 45 H Alkaline Phosphatase 51 Total Creatine Kinase 269 H Troponin I < 0.01 L NT-Pro-B Natriuret Pep 158 Total Protein 6.3 Albumin 3.7 Procalcitonin 0.07 06/19/22 06:50 WBC RBC Hgb Hct MCV MCH MCHC Plt Count INR VBG pH 7.480 H VBG pCO2 41 VBG pO2 53.3 H VBG HCO3 31 H Sodium Potassium Chloride Carbon Dioxide BUN Creatinine Estimated Creat Clear Estimated GFR Glucose Calcium Magnesium Total Bilirubin AST ALT Alkaline Phosphatase Total Creatine Kinase Troponin I NT-Pro-B Natriuret Pep Total Protein Albumin Procalcitonin
[2022-06-19 17:40] LABS: C Reactive Protein* 2.2 mg/dL (0.5-1.0)
[2022-06-19] MEDS: ACETAMINOPHEN 325 MG TABLET 975 MG PO (18:00)
[2022-06-19] MEDS: ENOXAPARIN 40 MG/0.4 ML INJ SUBCUT (21:05)
[2022-06-19] MEDS: TRIAMCINOLONE ACETONIDE CREAM 0.1 % 1 APPLIC TOPICAL (23:11)
[2022-06-20] VITALS (7 sets, daily range): BP systolic 128–155; BP diastolic 66–84; PULSE 76–87; RESP 16; TEMP 36.7–37.1; O2SAT 92–96
--- NOTE | 2022-06-20 05:08 | PC.NURSE ---
End of Shift: Patient pleasant and cooperative. Afebrile. O2 sats greater than 90% on room air. Up to chair and bathroom with 1 assist, walker and gait belt. Incontinent of urine throughout shift. Frequent turn and reposition while in bed and patient able to assist. Tolerating regular diet with no nausea. C/o chronic back pain up to 11/05 and PRN Tylenol given x1. Rash noted to back and patient stated it was itchy, updated MD and cream ordered.
[2022-06-20 06:21] LABS: HCO3 VBG 29 mmol/L (21-28); PCO2 VBG 42 mmHG (40-50); PO2 VBG 50.4 mmHG (25-47); pH VBG 7.456 (7.32-7.43)
[2022-06-20 06:40] LABS: INR 1.04 (0.91-1.10); Prothrombin Time 14.3 Seconds
[2022-06-20 06:45] LABS: Albumin* 3.6 g/dL (3.3-5.0); Chloride* 106 mmol/L (96-114)
[2022-06-20 06:46] LABS: Potassium* 3.8 mmol/L (3.6-5.1); Sodium* 138 mmol/L (135-149)
[2022-06-20 06:48] LABS: Creatinine* 0.6 mg/dL (0.5-1.5); Estimated Glomerular Filt Rate 90 ml/min
[2022-06-20 06:49] LABS: Alanine Aminotransferase* 50 U/L (4-35); Alkaline Phosphatase* 61 U/L (40-150); Aspartate Amino Transferase* 51 U/L (12-35); Bilirubin Total* 0.5 mg/dL (0.1-1.5); Blood Urea Nitrogen* 19 mg/dL (7-30); Calcium* 9.3 mg/dL (8.4-10.6); Carbon Dioxide* 31 mmol/L (20-32); Creatine Kinase* 169 U/L (41-117); Glucose* 112 mg/dL (60-115); Total Protein* 6.1 g/dL (6.0-8.3)
[2022-06-20 06:50] LABS: Magnesium* 1.9 mg/dL (1.5-2.6)
[2022-06-20 06:51] LABS: C Reactive Protein* 1.4 mg/dL (0.5-1.0)
[2022-06-20 06:55] LABS: NT Pro B Type NatriureticPept* 84 PG/mL (0-450)
[2022-06-20 06:56] LABS: Hematocrit 39.2 % (33.0-51.0); Hemoglobin* 13.1 gm/dL (12.0-16.0); Mean Corpuscular HGB Conc 33 gm/dL (32-36); Mean Corpuscular Hemoglobin 31 pg (26-34); Mean Corpuscular Volume 93 fL (80-100); Platelet Count* 329 K/uL (140-440); Red Blood Count 4.24 m/uL (4.00-5.20)
[2022-06-20 06:58] LABS: Troponin I* 0.01 ng/mL (0.01-0.04)
[2022-06-20 07:02] LABS: Procalcitonin* 0.08 ng/mL (<0.50)
[2022-06-20 07:06] LABS: Slide Review Reflex No
[2022-06-20] MEDS: CIPROFLOXACIN 250 MG TABLET PO ×2 (08:57→19:43)
[2022-06-20] MEDS: ACETAMINOPHEN 325 MG TABLET 975 MG PO ×2 (08:57→19:43)
[2022-06-20] MEDS: GABAPENTIN 600 MG TABLET PO ×2 (08:57→19:43)
[2022-06-20] MEDS: POTASSIUM CHLORIDE 10 MEQ CAPSULE ER 20 MEQ PO (08:57)
[2022-06-20] MEDS: LOSARTAN POTASSIUM 50 MG TABLET PO (08:58)
[2022-06-20] MEDS: EMOLLIENT BASE CREAM 1 APPLIC TOPICAL ×2 (08:58→19:50)
[2022-06-20] MEDS: TRIAMCINOLONE ACETONIDE CREAM 0.1 % 1 APPLIC TOPICAL ×2 (10:42→19:50)
[2022-06-20] MEDS: AMLODIPINE 10 MG TABLET PO (10:42)
--- NOTE | 2022-06-20 12:18 | P.IMPN_ITS ---
Progress Note: A&P Assessment and plan (1) Fall: Problem details: Cause undetermined. COVID encephalopathy? abnl UA - culture grew out E coli and Pseudomonas aeruginosa. Patient still in a course of ciprofloxacin for this. There is also concern that there is a baseline level of dysfunction in the 1st place. Status: Acute (2) Rhabdomyolysis: Problem details: Down trending CK still, normal renal function. IV fluids have been stopped. Trend markers. Status: Acute (3) COVID-19: Problem details: + 06/14/2022 Loading dose of Remdesivir given plus 2 additional dose given, no more IV dose planned Status: Acute (4) Difficulty balancing: Problem details: slow decline; this will affect her discharge plan -OT/PT to continue to assist. This is slowly improving. Patient warrants transitional care services. Status: Acute (5) Elevated LFTs: Problem details: likely related to prolonged immobilization, rhabdo, dehydration. will follow clinically Status: Acute (6) Essential hypertension: Problem details: restart home norvasc and losartan Status: Acute (7) Cellulitis: Problem details: LLE - looks more like inflammation and abrasions. Status: Acute (8) Abrasion of skin of left lower leg: Status: Acute (9) Altered mental status: Problem details: Differential diagnosis includes COVID encephalopathy, post-traumatic concussion syndrome, evolving chronic cognitive impairment Status: Acute (10) Dry skin dermatitis: Status: Acute (11) UTI (urinary tract infection): Problem details: Pseudomonas and E coli Status: Acute Assessment and Plan: Plan 1. We are awaiting placement options. 2. Continue with supportive efforts here in the hospital. 3. Patient agreeable to above stated plans recommendations. Time Spent With Patient Total time spent: 30 minutes Subjective Time Seen by Provider: 11:00 Date Seen: 06/20/22 Interval history: Hospital day 7. 81-year-old woman who lives alone sustained a fall around 4:00 a.m. in the afternoon the day prior to admission and remained on the floor until 10:00 a.m. the following day, 18 hours. She does not recall the details of how she fell other than she thought she might have been reaching for something. She remembers thinking she might have injured her left shoulder from the fall and that she had a hard time moving or transferring herself, wondering if she might have a fractured shoulder. Eventually friends tried to come in but the door was locked and then nurse practitioner manager was able to open the door and they found on the floor and brought into the emergency department for further assessment. In our emergency department she was found to be somewhat confused, no fractures, found to have rhabdomyolysis with CK greater than 7000, and coincidently was found to have COVID-19. Patient subsequently admitted for inpatient services. She indicates she is feeling well. Tolerating increased oral intakes. No longer receiving IV fluids for rhabdomyolysis. Denies nausea or vomiting. Denies chest heaviness, pressure, tightness, or pain. Denies syncope, near syncope, orthostasis, lightheadedness, vertigo. She continues to work with physical therapy and occupational therapy. Patient was able to walk a few steps today with use of gait belt, walker, assist of 1. Patient now willing to accept transitional care services when she is ready for discharge from the hospital. Exam Narrative: Exam Narrative: Appears comfortable and in no apparent distress. Alert and oriented to self, place, in part to time, and in part to situation. Friendly, cooperative, articulate. Mood and affect are congruent. No focal motor neurologic deficits. Still having difficulties transferring and requires assist. Lungs clear to auscultation. Heart tones with regular rhythm. Abdomen with active bowel sounds, soft, nontender. Extremities without edema. No tremor, asterixis, or ataxia. Skin is warm, dry, intact. No jaundice, petechiae, rashes, or cyanosis. Const: Vital Signs, click to edit/add: Vital Signs - 24 hr 06/19/22 15:00 06/19/22 15:00 06/19/22 15:00 Temperature 98.0 F Pulse Rate [Left A pical] Pulse Rate [Pulse Oximeter] 88 Respiratory Rate 18 Blood Pressure [Le ft Arm] 133/76 Blood Pressure [Ri ght Arm] Pulse Oximetry 94 94 94 Oxygen Delivery Me thod Room Air Room Air 06/19/22 15:00 06/19/22 19:00 06/19/22 23:00 Temperature 98.1 F 97.9 F Pulse Rate [Left A pical] 88 Pulse Rate [Pulse Oximeter] 87 84 Respiratory Rate 18 18 16 Blood Pressure [Le ft Arm] Blood Pressure [Ri ght Arm] 133/61 133/54 L Pulse Oximetry 96 95 Oxygen Delivery Me thod Room Air Room Air 06/19/22 23:00 06/19/22 23:00 06/19/22 23:00 Temperature Pulse Rate [Left A pical] Pulse Rate [Pulse Oximeter] 84 Respiratory Rate 16 Blood Pressure [Le ft Arm] Blood Pressure [Ri ght Arm] Pulse Oximetry 95 95 Oxygen Delivery Me thod Room Air 06/20/22 03:00 06/20/22 08:30 06/20/22 08:30 Temperature 98.8 F Pulse Rate [Left A pical] Pulse Rate [Pulse Oximeter] 82 Respiratory Rate 16 16 Blood Pressure [Le ft Arm] Blood Pressure [Ri ght Arm] 155/70 H Pulse Oximetry [address]od Room Air Room Air 06/20/22 08:30 06/20/22 08:33 06/20/22 10:46 Temperature 98.1 F 98.0 F Pulse Rate [Left A pical] 82 82 76 Pulse Rate [Pulse Oximeter] 82 82 76 Respiratory Rate 16 16 16 Blood Pressure [Le ft Arm] Blood Pressure [Ri ght Arm] 138/79 128/67 Pulse Oximetry [address]od Room Air Room Air Documenting provider has reviewed patient's vital signs: yes Labs Labs: Laboratory Results - last 24 hr 06/19/22 06/20/22 06/20/22 06:50 06:09 06:09 WBC 8.80 RBC 4.24 Hgb 13.1 Hct 39.2 MCV 93 MCH 31 MCHC 33 Plt Count 329 INR 1.04 VBG pH VBG pCO2 VBG pO2 VBG HCO3 Sodium Potassium Chloride Carbon Dioxide BUN Creatinine Estimated Creat Clear Estimated GFR Glucose Calcium Magnesium Total Bilirubin AST ALT Alkaline Phosphatase Total Creatine Kinase Troponin I C-Reactive Protein 2.2 H NT-Pro-B Natriuret Pep Total Protein Albumin Procalcitonin 06/20/22 06/20/22 06:09 06:09 WBC RBC Hgb Hct MCV MCH MCHC Plt Count INR VBG pH 7.456 H VBG pCO2 42 VBG pO2 50.4 H VBG HCO3 29 H Sodium 138 Potassium 3.8 Chloride 106 Carbon Dioxide 31 BUN 19 Creatinine 0.6 Estimated Creat Clear 34.30 Estimated GFR 90 Glucose 112 Calcium 9.3 Magnesium 1.9 Total Bilirubin 0.5 AST 51 H ALT 50 H Alkaline Phosphatase 61 Total Creatine Kinase 169 H Troponin I 0.01 C-Reactive Protein 1.4 H NT-Pro-B Natriuret Pep 84 Total Protein 6.1 Albumin 3.6 Procalcitonin 0.08
--- NOTE | 2022-06-20 16:35 | PC.NURSE ---
End of Shift: Pt has been very pleasant and cooperative. right shoulder discomfort so she got some Tylenol. cont O2 sats greater than 90% on room air. cont was d/c for spot check. Up to chair and bathroom with 1 assist, walker and gait belt. she is still having problems with her right le but she is moving better. Incontinent of urine, and she had a continent BM. turn and reposition, patient able to assist. she is eating ,drinking and voiding. she is a fall risk and alarms are on. she is using her call light all of the time. Rash to back cream was applied.
--- NOTE | 2022-06-20 16:53 | PC.NURSE ---
covid precautions followed and OT helped pt with a shower. dressing is to lower leg.
[2022-06-20] MEDS: ENOXAPARIN 40 MG/0.4 ML INJ SUBCUT (19:50)
[2022-06-21] VITALS (7 sets, daily range): BP systolic 116–154; BP diastolic 64–91; PULSE 74–96; RESP 16–22; TEMP 36.4–36.9; O2SAT 94–98
--- NOTE | 2022-06-21 04:59 | PC.NURSE ---
Shift note 23-: Pt alert but forgetful, uses call light for needs, up to BR w/ A1 and walker, drags L foot (per pt..her usual), continues w/ incontinence, denies any pain. Awaiting rehab placement.
[2022-06-21 07:53] LABS: Hematocrit 39.6 % (33.0-51.0); Mean Corpuscular HGB Conc 33 gm/dL (32-36); Mean Corpuscular Hemoglobin 31 pg (26-34); Mean Corpuscular Volume 94 fL (80-100); Platelet Count* 319 K/uL (140-440); Red Blood Count 4.23 m/uL (4.00-5.20); White Blood Count* 7.86 K/uL (4.50-11.00)
[2022-06-21 07:55] LABS: Slide Review Reflex No
[2022-06-21 07:58] LABS: HCO3 VBG 31 mmol/L (21-28); PCO2 VBG 46 mmHG (40-50); PO2 VBG 25.6 mmHG (25-47); pH VBG 7.431 (7.32-7.43)
[2022-06-21 08:21] LABS: Albumin* 3.8 g/dL (3.3-5.0); Chloride* 104 mmol/L (96-114); Sodium* 138 mmol/L (135-149)
[2022-06-21 08:22] LABS: Potassium* 4.2 mmol/L (3.6-5.1)
[2022-06-21 08:23] LABS: Bilirubin Total* 0.5 mg/dL (0.1-1.5); Creatinine* 0.6 mg/dL (0.5-1.5); Estimated Glomerular Filt Rate 90 ml/min
[2022-06-21 08:24] LABS: Alanine Aminotransferase* 53 U/L (4-35); Alkaline Phosphatase* 54 U/L (40-150); Aspartate Amino Transferase* 52 U/L (12-35); Blood Urea Nitrogen* 19 mg/dL (7-30); Carbon Dioxide* 30 mmol/L (20-32); Creatine Kinase* 137 U/L (41-117); Glucose* 111 mg/dL (60-115); Total Protein* 6.3 g/dL (6.0-8.3)
[2022-06-21 08:25] LABS: Calcium* 9.4 mg/dL (8.4-10.6); Magnesium* 1.9 mg/dL (1.5-2.6)
[2022-06-21 08:37] LABS: NT Pro B Type NatriureticPept* 63 PG/mL (0-450)
[2022-06-21 08:41] LABS: Procalcitonin* 0.09 ng/mL (<0.50)
[2022-06-21 08:42] LABS: Troponin I* < 0.01 ng/mL (0.01-0.04)
[2022-06-21 08:45] LABS: Prothrombin Time 13.8 Seconds
[2022-06-21] MEDS: LOSARTAN POTASSIUM 50 MG TABLET PO (09:04)
[2022-06-21] MEDS: GABAPENTIN 600 MG TABLET PO ×2 (09:04→20:16)
[2022-06-21] MEDS: AMLODIPINE 10 MG TABLET PO (09:04)
[2022-06-21] MEDS: POTASSIUM CHLORIDE 10 MEQ CAPSULE ER 20 MEQ PO (09:04)
[2022-06-21] MEDS: CIPROFLOXACIN 250 MG TABLET PO ×2 (09:04→20:16)
[2022-06-21] MEDS: TRIAMCINOLONE ACETONIDE CREAM 0.1 % 1 APPLIC TOPICAL ×2 (09:05→20:16)
[2022-06-21] MEDS: EMOLLIENT BASE CREAM 1 APPLIC TOPICAL ×2 (09:05→20:15)
--- NOTE | 2022-06-21 11:29 | PM.IMPN1 ---
Progress Note: A&P Assessment and plan (1) Fall: Problem details: - presumably 2/2 COVID encephalopathy, also noted to have + urine culture for E coli and Pseudomonas aeruginosa - no evidence of cardiac arrythmia or significant orthostasis Status: Acute (2) Rhabdomyolysis: Problem details: - on admission, resolved Status: Acute (3) COVID-19: Problem details: + 06/14/2022 Loading dose of Remdesivir given plus 2 additional dose given, no more IV dose planned Status: Acute (4) Difficulty balancing: Problem details: - slowly improving. Patient warrants transitional care services. Status: Acute (5) Elevated LFTs: Problem details: - likely related to prolonged immobilization, rhabdo, dehydration; trending down Status: Acute (6) Essential hypertension: Problem details: - continue home norvasc and losartan Status: Acute (7) Abrasion of skin of left lower leg: Problem details: - stable, no evidence of acute infectious process Status: Acute (8) Altered mental status: Problem details: - Differential diagnosis includes COVID encephalopathy, post-traumatic concussion syndrome, evolving chronic cognitive impairment Status: Acute (9) UTI (urinary tract infection): Problem details: - low CFU of Pseudomonas and E coli - completed 5 day course of Cipro Status: Acute Plan - per above - Lovenox for prophylaxis - dispo: likely SNF, appreciate input from PT/OT/SW Subjective Date Seen: 06/21/22 Interval history: No acute events overnight. Ashley was admitted on 06/14 after a fall at home with resultant rhabdomyolysis (CK >7000), found to be + for COVID-19. Labs have significantly improved since admission, no concerns for muscle aches or abdominal pain. She's had intermittent confusion and evidence of MCI, improving during stay. She continues to feel better every day and is working with our therapy teams. Ashley is amenable to SNF stay upon discharge for rehab/conditioning. Exam Narrative: Exam Narrative: GEN: Alert and oriented, answering questions appropriately HEENT: Normal external ears, EOMIs bilaterally CV: RRR, No concerning murmurs, rubs, or gallops R: LCTA bilaterally without concerning wheezing, rales, or rhonchi, air movement adequate Skin: No concerning skin lesions or rashes on exposed skin, lower extremity abrasion not formally examined today Neuro: No focal deficits, no resting tremor Const: Vital Signs, click to edit/add: Vital Signs - 24 hr 06/20/22 15:00 06/20/22 15:00 06/20/22 15:00 Temperature 98.1 F Pulse Rate [Left A pical] 82 Pulse Rate [Pulse Oximeter] 82 Respiratory Rate 16 16 Blood Pressure [Ri ght Arm] 137/84 Pulse Oximetry 94 95 96 Oxygen Delivery Me thod Room Air Room Air 06/20/22 15:00 06/20/22 18:35 06/20/22 23:00 Temperature 98.3 F Pulse Rate [Left A pical] 82 Pulse Rate [Pulse Oximeter] 82 87 Respiratory Rate 16 16 16 Blood Pressure [Ri ght Arm] 132/66 Pulse Oximetry 95 Oxygen Delivery Me thod Room Air 06/21/22 03:00 06/21/22 03:00 06/21/22 03:00 Temperature 98.0 F Pulse Rate [Left A pical] Pulse Rate [Pulse Oximeter] 74 74 Respiratory Rate 18 18 Blood Pressure [Ri ght Arm] 144/91 H Pulse Oximetry 95 95 Oxygen Delivery Me thod Room Air Room Air Labs Labs: Laboratory Results - last 24 hr 06/21/22 06/21/22 06/21/22 04:00 07:30 07:30 WBC 7.86 RBC 4.23 Hgb 13.0 Hct 39.6 MCV 94 MCH 31 MCHC 33 Plt Count 319 INR 1.00 VBG pH VBG pCO2 VBG pO2 VBG HCO3 Sodium 138 Potassium 4.2 Chloride 104 Carbon Dioxide 30 BUN 19 Creatinine 0.6 Estimated Creat Clear 34.30 Estimated GFR 90 Glucose 111 Calcium 9.4 Magnesium 1.9 Total Bilirubin 0.5 AST 52 H ALT 53 H Alkaline Phosphatase 54 Total Creatine Kinase 137 H Troponin I < 0.01 L C-Reactive Protein 1.0 NT-Pro-B Natriuret Pep 63 Total Protein 6.3 Albumin 3.8 Procalcitonin 0.09 06/21/22 07:30 WBC RBC Hgb Hct MCV MCH MCHC Plt Count INR VBG pH 7.431 H VBG pCO2 46 VBG pO2 25.6 VBG HCO3 31 H Sodium Potassium Chloride Carbon Dioxide BUN Creatinine Estimated Creat Clear Estimated GFR Glucose Calcium Magnesium Total Bilirubin AST ALT Alkaline Phosphatase Total Creatine Kinase Troponin I C-Reactive Protein NT-Pro-B Natriuret Pep Total Protein Albumin Procalcitonin
--- NOTE | 2022-06-21 14:24 | PC.NURSE ---
Pt up with SBA, walker, and gait belt within the room. Pt has been continent of bowel and bladder entire shift. Pt is clear headed with conversation today. Denies pain, SOB, chest pain, N/V.
[2022-06-21] MEDS: ENOXAPARIN 40 MG/0.4 ML INJ SUBCUT (20:16)
--- NOTE | 2022-06-21 21:07 | PC.NURSE ---
Shift Summary: Patient pleasant and cooperative. Up with SBA and walker. Using call light appropriately. Pericares performed by staff, scheduled creams used for reddened areas. Denied pain or SOB. Continues to maintain o2 sats >90% on RA. Refused dinner stating she was still full from lunch. Has been continent of bowel and bladder this evening.
[2022-06-22 03:00] VITALS: BP 128/64; PULSE 87; RESP 18; TEMP 37.6; O2SAT 94
[2022-06-22] MEDS: ACETAMINOPHEN 325 MG TABLET 975 MG PO (06:01)
--- NOTE | 2022-06-22 06:33 | PC.NURSE ---
23-07: A x 1 with annalee and walker, tolerated well. Dry intermittent cough noted. c/o general body aches, Tylenol given. VSS.
[2022-06-22 07:00] VITALS: BP 141/64; PULSE 74; RESP 16; O2SAT 98
[2022-06-22] MEDS: POTASSIUM CHLORIDE 10 MEQ CAPSULE ER 20 MEQ PO (08:19)
[2022-06-22] MEDS: TRIAMCINOLONE ACETONIDE CREAM 0.1 % 1 APPLIC TOPICAL ×2 (08:20→21:11)
[2022-06-22] MEDS: EMOLLIENT BASE CREAM 1 APPLIC TOPICAL ×2 (08:20→21:11)
[2022-06-22] MEDS: CIPROFLOXACIN 250 MG TABLET PO ×2 (08:21→21:10)
[2022-06-22] MEDS: AMLODIPINE 10 MG TABLET PO (08:21)
[2022-06-22] MEDS: LOSARTAN POTASSIUM 50 MG TABLET PO (08:21)
[2022-06-22] MEDS: GABAPENTIN 600 MG TABLET PO ×2 (08:22→21:10)
--- NOTE | 2022-06-22 09:19 | NUTR.NU ---
RDN with LOS stay note. Patient admitted with weakness, fall, and Rhabdomyolysis positive for covid. On admission, patient had altered mental status. Diet has been Regular with meal intakes mainly 100% since admit. Weight on admit 183 lbs (bedscale); Current weight 160 lbs (standing scale). Significant weight difference since admit, however suspect different scales used to obtain weight is contributing to weight difference. Patient's weight has been stable recently, since 06/20/22. Current BMI is overweight at 29.3 k/m2. RDN unable to visit with patient due to covid restrictions, and patient did not answer her room phone. No nutrition interventions at this time with good oral intakes and stable weights. RDN will continue to monitor and follow-up prn.
[2022-06-22 11:48] VITALS: BP 141/68; PULSE 76; RESP 18; TEMP 36.2; O2SAT 95
--- NOTE | 2022-06-22 13:29 | PC.NURSE ---
PATIENT PLEASANT AND COOPERATIVE, ALERT AND ORIENTED, UP SBA WITH WALKER AND BELT, REPORTING PAIN IN BACK CHRONIC DECLINING MEDICATION, TOLERATING REGULAR DIET.
--- NOTE | 2022-06-22 14:22 | PC.SOCIAL ---
Discharge planning: Spoke with pt by phone regarding her discharge plan. Pt confirms she is the person who social service assistant should talk with for discharge planning. Pt shared that she in in agreement with PT/OT recommendation for short term rehab stay at discharge from the hospital. Pt lives alone and is motivated to return home in the best possible condition following a rehab stay. Pt is requesting placement at facilities in this order: 1, [facility]; 2. [facility] [place]; 3. [facility]; [facility]. Pt is hoping she can go to [facility] as she has a sister who lives at that facility. Called [facility] and spoke with Bhavana who states they likely will have a bed available Saturday and requested information be faxed. Faxed requested information to [facility] and awaiting call back with decision on admit. sand worker to follow up as needed.
--- NOTE | 2022-06-22 15:14 | PM.IMPN1 ---
Progress Note: A&P Assessment and plan (1) Fall: Problem details: - presumably 2/2 COVID encephalopathy, also noted to have + urine culture for E coli and Pseudomonas aeruginosa - no evidence of cardiac arrythmia or significant orthostasis Status: Acute (2) Rhabdomyolysis: Problem details: - on admission, resolved Status: Acute (3) COVID-19: Problem details: + 06/14/2022 Loading dose of Remdesivir given plus 2 additional doses given Status: Acute (4) Difficulty balancing: Problem details: - slowly improving. Patient warrants transitional care services. Status: Acute (5) Elevated LFTs: Problem details: - likely related to prolonged immobilization, rhabdo, dehydration; trending down Status: Acute (6) Essential hypertension: Problem details: - continue home norvasc and losartan Status: Acute (7) Abrasion of skin of left lower leg: Problem details: - stable, no evidence of acute infectious process Status: Acute (8) Altered mental status: Problem details: - Differential diagnosis includes COVID encephalopathy, post-traumatic concussion syndrome, evolving chronic cognitive impairment Status: Acute (9) UTI (urinary tract infection): Problem details: - low CFU of Pseudomonas and E coli - completed 5 day course of Cipro Status: Acute Plan - per above - Lovenox for prophylaxis - discharge to SNF, likely early next week Subjective Date Seen: 06/22/22 Interval history: Ashley was admitted to the hospital on 06/14 after a fall at home with resultant rhabdomyolysis (CK >7000); she was then found to be + for COVID-19. She had no acute events overnight and continues to feel well. Her labs have resolved and she has no concerns of pain or achiness. We are planning for SNF stay upon discharge, likely early next week given COVID +diagnosis on 06/16/22. Exam Narrative: Exam Narrative: GEN: Alert and oriented, sitting comfortably in chair in answering questions appropriately HEENT: Normal external ears, EOMIs bilaterally, no scleral icterus CV: RRR, No concerning murmurs, rubs, or gallops R: LCTA bilaterally without concerning wheezing, rales, or rhonchi, air movement adequate Ext: Warm and well perfused Skin: No concerning skin lesions or rashes on exposed skin Neuro: No focal deficits Const: Vital Signs, click to edit/add: Vital Signs - 24 hr 06/21/22 15:51 06/21/22 16:11 06/21/22 18:46 Temperature 98.4 F 97.5 F L Pulse Rate [Pulse Oximeter] 91 96 Respiratory Rate 18 16 Blood Pressure [Le ft Arm] 116/74 124/72 Blood Pressure [Ri ght Arm] Pulse Oximetry 94 94 97 Oxygen Delivery Me thod Room Air Room Air Room Air 06/21/22 23:00 06/21/22 23:00 06/21/22 23:00 Temperature 97.8 F Pulse Rate [Pulse Oximeter] 88 Respiratory Rate 16 16 16 Blood Pressure [Le ft Arm] 138/66 Blood Pressure [Ri ght Arm] Pulse Oximetry 96 96 Oxygen Delivery Me thod Room Air Room Air 06/22/22 03:00 06/22/22 07:00 06/22/22 07:00 Temperature 99.7 F H Pulse Rate [Pulse Oximeter] 87 74 Respiratory Rate 18 16 16 Blood Pressure [Le ft Arm] 141/64 H Blood Pressure [Ri ght Arm] 128/64 Pulse Oximetry 94 98 98 Oxygen Delivery Me thod Room Air Room Air Room Air 06/22/22 11:48 Temperature 97.2 F L Pulse Rate [Pulse Oximeter] 76 Respiratory Rate 18 Blood Pressure [Le ft Arm] 141/68 H Blood Pressure [Ri ght Arm] Pulse Oximetry 95 Oxygen Delivery Me thod Room Air
[2022-06-22 16:02] VITALS: BP 117/74; PULSE 80; RESP 18; TEMP 36.4; O2SAT 95
[2022-06-22 19:03] VITALS: BP 117/64; PULSE 79; RESP 16; TEMP 36.5; O2SAT 97
[2022-06-22] MEDS: ENOXAPARIN 40 MG/0.4 ML INJ SUBCUT (21:10)
--- NOTE | 2022-06-22 22:23 | PC.NURSE ---
Shift 3023-4519- Patient denies pain throughout shift. She is sleepy on and off throughout afternoon and evening. She is up with SBA. Remains of RA with saturations >90%.
[2022-06-22 23:00] VITALS: BP 125/60; PULSE 82; RESP 16; TEMP 36.7; O2SAT 96
[2022-06-23 03:00] VITALS: BP 137/64; PULSE 81; RESP 16; TEMP 36.7; O2SAT 96
--- NOTE | 2022-06-23 05:10 | PC.NURSE ---
[id number] Slept all night, continent of bladder, walks to br with walker, GB, SBA. denies pain, weakness, sob, lightheaded or dizziness.
[2022-06-23] MEDS: POTASSIUM CHLORIDE 10 MEQ CAPSULE ER 20 MEQ PO (09:18)
[2022-06-23] MEDS: CIPROFLOXACIN 250 MG TABLET PO (09:18)
[2022-06-23] MEDS: GABAPENTIN 600 MG TABLET PO ×2 (09:18→20:12)
[2022-06-23] MEDS: LOSARTAN POTASSIUM 50 MG TABLET PO (09:18)
[2022-06-23] MEDS: AMLODIPINE 10 MG TABLET PO (09:19)
[2022-06-23] MEDS: TRIAMCINOLONE ACETONIDE CREAM 0.1 % 1 APPLIC TOPICAL ×2 (09:19→20:13)
[2022-06-23] MEDS: EMOLLIENT BASE CREAM 1 APPLIC TOPICAL ×2 (09:19→20:12)
--- NOTE | 2022-06-23 10:09 | PM.IMPN1 ---
Progress Note: A&P Assessment and plan (1) Fall: Problem details: - presumably 2/2 COVID encephalopathy, also noted to have + urine culture for E coli and Pseudomonas aeruginosa - no evidence of cardiac arrythmia or significant orthostasis - appreciate assistance from PT and OT Status: Acute (2) Rhabdomyolysis: Problem details: - on admission, resolved Status: Acute (3) COVID-19: Problem details: + 06/14/2022 - treated with 3 days course of Remdesivir Status: Acute (4) Difficulty balancing: Problem details: - slowly improving. Patient warrants transitional care services. Status: Acute (5) Elevated LFTs: Problem details: - likely related to prolonged immobilization, rhabdo, dehydration; trending down Status: Acute (6) Essential hypertension: Problem details: - continue home norvasc and losartan Status: Acute (7) Abrasion of skin of left lower leg: Problem details: - stable, no evidence of acute infectious process Status: Acute (8) Altered mental status: Problem details: - Differential diagnosis includes COVID encephalopathy, post-traumatic concussion syndrome, evolving chronic cognitive impairment Status: Acute (9) UTI (urinary tract infection): Problem details: - low CFU of Pseudomonas and E coli - completed 5 day course of Cipro Status: Acute Plan - per above - Lovenox for ppx - anticipate TCU placement early next week Subjective Date Seen: 06/23/22 Interval history: Ashley was admitted to the hospital on 06/14 after a fall at home with resultant rhabdomyolysis (CK >7000); she was then found to be + for COVID-19. No acute events overnight. Medical comorbidities remain stable. Ashley feels well, is reading to pass the time, hoping she can rehab at [facility] next week. Exam Narrative: Exam Narrative: GEN: Alert and oriented, sitting comfortably in bedside chair and speaking in full sentences HEENT: Normal external ears, EOMIs bilaterally CV: RRR, No concerning murmurs, rubs, or gallops R: LCTA bilaterally without concerning wheezing, rales, or rhonchi Skin: No concerning skin lesions or rashes on exposed skin Neuro: Nonfocal Psych: Appropriate Const: Vital Signs, click to edit/add: Vital Signs - 24 hr 06/22/22 11:48 06/22/22 16:02 06/22/22 16:02 Temperature 97.2 F L 97.6 F Pulse Rate [Pulse Oximeter] 76 80 Respiratory Rate 18 18 Blood Pressure [Le ft Arm] 141/68 H 117/74 Blood Pressure [Ri ght Arm] Pulse Oximetry 95 95 95 Oxygen Delivery Me thod Room Air Room Air Room Air 06/22/22 19:03 06/22/22 23:00 06/22/22 23:00 Temperature 97.7 F 98.1 F Pulse Rate [Pulse Oximeter] 79 82 Respiratory Rate 16 16 Blood Pressure [Le ft Arm] 117/64 Blood Pressure [Ri ght Arm] 125/60 Pulse Oximetry 97 96 96 Oxygen Delivery Me thod Room Air Room Air Room Air 06/23/22 03:00 Temperature 98.1 F Pulse Rate [Pulse Oximeter] 81 Respiratory Rate 16 Blood Pressure [Le ft Arm] 137/64 Blood Pressure [Ri ght Arm] Pulse Oximetry 96 Oxygen Delivery Me thod Room Air
[2022-06-23 12:18] VITALS: BP 138/72; PULSE 68; RESP 18; TEMP 36.6; O2SAT 96
[2022-06-23 15:00] VITALS: O2SAT 93
[2022-06-23 19:00] VITALS: BP 130/80; BP 138/72; PULSE 76; RESP 18; TEMP 36.6; O2SAT 95
--- NOTE | 2022-06-23 19:58 | PC.NURSE ---
shift note: pt up 1/walker. pt has steady gait but expresses bilat l/e weakness when standing at sink to do cares. LS clr. Sats >92% on RA. Pt afeb. inner groin creases bilat slightly red. Lt mid calf with resolving abrasion from fall.
[2022-06-23] MEDS: ENOXAPARIN 40 MG/0.4 ML INJ SUBCUT (20:12)
[2022-06-23 22:56] VITALS: RESP 18; O2SAT 95
--- NOTE | 2022-06-24 05:10 | PC.NURSE ---
[id number]: Patient pleasant and cooperative. A&O x3. Uses call light appropriately. Continent/incontinent. A1,walker,GB. Denies pain. Eating and voiding.
[2022-06-24 07:00] VITALS: BP 145/102; PULSE 81; RESP 18; TEMP 36.6; O2SAT 96
[2022-06-24] MEDS: LOSARTAN POTASSIUM 50 MG TABLET PO (08:46)
[2022-06-24] MEDS: AMLODIPINE 10 MG TABLET PO (08:46)
[2022-06-24] MEDS: POTASSIUM CHLORIDE 10 MEQ CAPSULE ER 20 MEQ PO (08:46)
[2022-06-24] MEDS: GABAPENTIN 600 MG TABLET PO ×2 (08:46→20:49)
[2022-06-24] MEDS: EMOLLIENT BASE CREAM 1 APPLIC TOPICAL ×2 (08:47→20:48)
[2022-06-24] MEDS: TRIAMCINOLONE ACETONIDE CREAM 0.1 % 1 APPLIC TOPICAL ×2 (08:48→20:48)
--- NOTE | 2022-06-24 11:35 | PM.IMPN1 ---
Progress Note: A&P Assessment and plan (1) Fall: Problem details: - presumably 2/2 COVID encephalopathy, also noted to have + urine culture for E coli and Pseudomonas aeruginosa on admission - no evidence of cardiac arrythmia or significant orthostasis - appreciate assistance from PT and OT Status: Acute (2) Rhabdomyolysis: Problem details: - on admission, resolved Status: Acute (3) COVID-19: Problem details: + 06/14/2022 - treated with 3 days course of Remdesivir Status: Acute (4) Difficulty balancing: Problem details: - slowly improving. Patient warrants transitional care services. Status: Acute (5) Elevated LFTs: Problem details: - likely related to prolonged immobilization, rhabdo, dehydration; trending down Status: Acute (6) Essential hypertension: Problem details: - continue home norvasc and losartan Status: Acute (7) Abrasion of skin of left lower leg: Problem details: - stable, no evidence of acute infectious process Status: Acute (8) Altered mental status: Problem details: - Differential diagnosis includes COVID encephalopathy, post-traumatic concussion syndrome, evolving chronic cognitive impairment - has continued to improve since admission Status: Acute (9) UTI (urinary tract infection): Problem details: - low CFU of Pseudomonas and E coli - completed 5 day course of Cipro Status: Acute Plan - per above - Lovenox for prophylaxis - dispo planning with PT, OT, and social work Subjective Date Seen: 06/24/22 Interval history: Ashley was admitted to the hospital on 06/14 after a fall at home with resultant rhabdomyolysis (CK >7000 on admission); then found to be + for COVID-19. Patient continues to do well, working with therapies daily for her weakness/MCI. Medical comorbidities remain stable. Ashley has no concerns for hospitalist staff, hoping she can rehab at [facility] next week. Exam Narrative: Exam Narrative: GEN: Alert, sitting comfortably in bedside chair HEENT: Normal external ears, EOMIs bilaterally, no scleral icterus CV: RRR, No concerning murmurs, rubs, or gallops R: LCTA bilaterally without concerning wheezing, rales, or rhonchi, air movement adequate Ext: wwp, trace edema bilateral ankles Skin: No concerning skin lesions or rashes on exposed skin Neuro: Nonfocal Psych: Appropriate Const: Vital Signs, click to edit/add: Vital Signs - 24 hr 11/26/22 12:18 06/23/22 12:18 06/23/22 15:00 Temperature 97.8 F Pulse Rate [Pulse Oximeter] 68 Respiratory Rate 18 18 Blood Pressure [Le ft Arm] 138/72 Blood Pressure [Ri ght Arm] Pulse Oximetry 96 96 93 Oxygen Delivery Me thod Room Air Room Air Room Air 06/23/22 19:00 06/23/22 22:56 06/24/22 07:00 Temperature 97.8 F Pulse Rate [Pulse Oximeter] 76 81 Respiratory Rate 18 18 Blood Pressure [Le ft Arm] 138/72 Blood Pressure [Ri ght Arm] 130/80 Pulse Oximetry 95 95 Oxygen Delivery Me thod Room Air Room Air 06/24/22 07:00 06/24/22 07:00 Temperature 98 F Pulse Rate [Pulse Oximeter] 81 Respiratory Rate 18 18 Blood Pressure [Le ft Arm] Blood Pressure [Ri ght Arm] 145/102 H Pulse Oximetry 96 96 Oxygen Delivery Me thod Room Air Room Air
[2022-06-24 13:16] VITALS: RESP 20; O2SAT 95
[2022-06-24 15:00] VITALS: PULSE 81; RESP 20; O2SAT 95
--- NOTE | 2022-06-24 18:53 | PC.NURSE ---
Shift Note: Shift unremarkable. Pt plans to d/c home tomorrow.
[2022-06-24 19:00] VITALS: BP 142/69; PULSE 76; RESP 20; TEMP 36.6; O2SAT 96
[2022-06-24] MEDS: ENOXAPARIN 40 MG/0.4 ML INJ SUBCUT (20:49)
[2022-06-24 23:00] VITALS: PULSE 72; RESP 20; O2SAT 96
--- NOTE | 2022-06-25 05:14 | PC.NURSE ---
[id number]: patient assist X1 with walker and gait belt for ambulation. patient slept most of the overnight shift. room air, afebrile
[2022-06-25 07:29] VITALS: BP 129/112; PULSE 74; RESP 16; TEMP 36.7; O2SAT 95
[2022-06-25 08:06] VITALS: RESP 16; O2SAT 95
[2022-06-25] MEDS: LOSARTAN POTASSIUM 50 MG TABLET PO (08:52)
[2022-06-25] MEDS: AMLODIPINE 10 MG TABLET PO (08:52)
[2022-06-25] MEDS: GABAPENTIN 600 MG TABLET PO ×2 (08:52→20:45)
[2022-06-25] MEDS: EMOLLIENT BASE CREAM 1 APPLIC TOPICAL ×2 (09:50→20:45)
[2022-06-25] MEDS: TRIAMCINOLONE ACETONIDE CREAM 0.1 % 1 APPLIC TOPICAL ×2 (09:50→20:45)
--- NOTE | 2022-06-25 14:29 | PC.NURSE ---
Shift Summary: Patient pleasant and cooperative. Up with one assist, walker and gait belt. Using call light appropriately. Tolerating regular diet, denies nausea. Denied pain or SOB. OT worked with patient and is now dressed and prepared for discharge, per social work patient will be discharged tomorrow.
--- NOTE | 2022-06-25 14:37 | PC.SOCIAL ---
Addendum entered by BHARATH Pino 06/26/22 10:36: Social work promotions intern note reviewed. BHARATH Cruz Original Note: Discharge planning: Pt. was accepted to [facility] tomorrow. Met with pt. in room to discuss discharge plan and transportation. Pt. says that she would prefer transportation be arranged for her through [facility]. Pt. is aware of potential cost of transportation. [facility] will transport pt. to [facility] at 11:30am tomorrow. Social work to follow up as needed.
--- NOTE | 2022-06-25 14:48 | P.IMPN_ITS ---
Progress Note: A&P Assessment and plan (1) Fall: Problem details: - presumably 2/2 COVID encephalopathy, also noted to have + urine culture for E coli and Pseudomonas aeruginosa on admission - no evidence of cardiac arrythmia or significant orthostasis - appreciate assistance from PT and OT Status: Acute (2) Rhabdomyolysis: Problem details: - on admission, resolved Status: Acute (3) COVID-19: Problem details: + 06/14/2022 - treated with 3 days course of Remdesivir Status: Acute (4) Essential hypertension: Problem details: - continue home norvasc and losartan Status: Acute (5) Altered mental status: Problem details: - Differential diagnosis includes COVID encephalopathy, post-traumatic concuss ion syndrome, evolving chronic cognitive impairment - has continued to improve since admission Status: Acute (6) UTI (urinary tract infection): Problem details: - low CFU of Pseudomonas and E coli - completed 5 day course of Cipro Status: Acute Plan - Continue current cares, Lovenox for prophylaxis - to [facility] tomorrow Subjective Date Seen: 06/25/22 Interval history: Ashley was admitted to the hospital on 06/14 after a fall at home with resultant rhabdomyolysis (CK >7000 on admission); then found to be + for COVID-19. Patient continues to do well, working with therapies daily for her weakness/MCI. Medical comorbidities remain stable. Ashley has no concerns for hospitalist staff, plans to d/c to [facility] tomorrow (06/26). Exam Narrative: Exam Narrative: GEN: Alert and oriented, sitting comfortably in bedside chair HEENT: Normal external ears, EOMIs bilaterally, no scleral icterus Ext: wwp, no concerning edema Skin: No concerning skin lesions or rashes on exposed skin Neuro: Nonfocal Psych: Appropriate Const: Vital Signs, click to edit/add: Vital Signs - 24 hr 06/24/22 15:00 06/24/22 15:00 06/24/22 19:00 Temperature 98 F Pulse Rate [Pulse Oximeter] 81 76 Respiratory Rate 20 20 20 Blood Pressure [Ri ght Arm] 142/69 H Pulse Oximetry 95 96 Oxygen Delivery Me thod Room Air Room Air 06/24/22 23:00 06/24/22 23:00 06/25/22 07:29 Temperature 98.1 F Pulse Rate [Pulse Oximeter] 72 74 Respiratory Rate 20 20 16 Blood Pressure [[facility] Arm] 129/112 H Pulse Oximetry 96 95 Oxygen Delivery Me thod Room Air Room Air 06/25/22 08:06 Temperature Pulse Rate [Pulse Oximeter] Respiratory Rate 16 Blood Pressure [[facility] Arm] Pulse Oximetry 95 Oxygen Delivery Me thod Room Air
[2022-06-25 15:00] VITALS: PULSE 80; RESP 16; O2SAT 96
[2022-06-25 18:47] VITALS: BP 132/57; PULSE 80; RESP 16; TEMP 36.7; O2SAT 96
[2022-06-25] MEDS: ENOXAPARIN 40 MG/0.4 ML INJ SUBCUT (20:45)
--- NOTE | 2022-06-25 21:48 | PC.NURSE ---
Shift note [id number]: Patient alert and oriented, pleasant and cooperative. Up with one assist, walker and gait belt. Pt. uses call light appropriately. Pt. denies nausea/pain/SOB. Pt. will be discharged tomorrow to [facility] for rehab.
[2022-06-25 23:00] VITALS: RESP 16; O2SAT 95
--- NOTE | 2022-06-26 05:09 | ED.NURSE ---
Shift note: Pt is doing well this morning. Able to sleep very well with minimal interruption during assessment and brief change. pt had incontinent of urine and brief changed. Very cooperative to treatment and care. No s/s of COVID infection observed. Denied pain
[2022-06-26 07:00] VITALS: BP 142/84; PULSE 80; PULSE 88; RESP 16; TEMP 36.6; O2SAT 94; O2SAT 95
[2022-06-26] MEDS: LOSARTAN POTASSIUM 50 MG TABLET PO (08:25)
[2022-06-26] MEDS: GABAPENTIN 600 MG TABLET PO ×2 (08:25→20:35)
[2022-06-26] MEDS: EMOLLIENT BASE CREAM 1 APPLIC TOPICAL ×2 (08:25→20:35)
[2022-06-26] MEDS: AMLODIPINE 10 MG TABLET PO (08:26)
[2022-06-26] MEDS: TRIAMCINOLONE ACETONIDE CREAM 0.1 % 1 APPLIC TOPICAL (08:26)
[2022-06-26 10:30] VITALS: BP 142/84; PULSE 88; RESP 16; TEMP 36.6
--- NOTE | 2022-06-26 10:40 | P.DS_ITS ---
DS: Providers Provider Date Seen: 06/26/22 Date of admission: 06/14/22 18:07 Primary care physician: Rose Painter MD Admitting Clinician: Deena Adams MD Consults: PT, OT, RT Attending Physician on discharge: Deena Adams MD Date of Discharge: 06/26/22 DS: Diagnosis Discharge Diagnosis (1) Fall: Status: Acute Problem details: - presumably 2/2 COVID encephalopathy, also noted to have + urine culture for E coli and Pseudomonas aeruginosa on admission - no evidence of cardiac arrythmia or significant orthostasis during stay - appreciate assistance from PT and OT (2) Rhabdomyolysis: Status: Acute Problem details: - on admission, resolved with IVFs (3) COVID-19: Status: Acute Problem details: + 06/14/2022 - treated with 3 days course of Remdesivir (4) Essential hypertension: Status: Acute Problem details: - continued home norvasc and losartan (5) Altered mental status: Status: Acute Problem details: - Differential diagnosis includes COVID encephalopathy, post-traumatic concussion syndrome, evolving chronic cognitive impairment - has continued to improve since admission (6) UTI (urinary tract infection): Status: Acute Problem details: - low CFU of Pseudomonas and E coli - completed 5 day course of Cipro DS: Summary Hospital Course Hospital Course: Denise is a delightful 81-year-old female who presented to the hospital after a fall at home and rhabdomyolysis, incidentally found to be positive for COVID in the emergency room. She was admitted to the hospital, rhabdomyolysis resolved with IV fluid tosha ydration. She was seen by PT and OT and SNF stay recommended given her deconditioning and fall risk. She had an abrasion on left lower extremity upon admission that resolved throughout stay. Comorbidities remained stable, home medications continued. Noted to have a UTI, treated with 5 day course of Cipro. Other notable findings above. Status at Discharge Functional status at discharge: uses cane/walker Overall status at discharge: patient is progressing back to baseline Time Spent with Patient Time attestation: Total time spent providing and/or coordinating discharge services: Time spent: Greater than 30 minutes Specific discharge activities: Medication reconciliation, care coordination with team members, discharge paperwork Exam Narrative: Exam Narrative: GEN: Alert and oriented, nontoxic in appearance, pleasant and speaking in full sentence HEENT: Normal external ears, EOMIs bilaterally, no scleral icterus CV: Regular rate and rhythm R: Breathing comfortably without any tachypnea or audible wheezing Skin: No concerning skin lesions or rashes on exposed skin Neuro: Nonfocal Psych: Appropriate Const: Vital Signs, click to edit/add: Vital Signs - 24 hr 06/25/22 15:00 06/25/22 15:00 06/25/22 18:47 Temperature 98.1 F Pulse Rate Pulse Rate [Pulse Oximeter] 80 80 Respiratory Rate 16 16 16 Blood Pressure Blood Pressure [Ri ght Arm] 132/57 L Pulse Oximetry 96 96 Oxygen Delivery Me thod Room Air Room Air 06/25/22 23:00 06/26/22 07:00 06/26/22 07:00 Temperature Pulse Rate Pulse Rate [Pulse Oximeter] 80 Respiratory Rate 16 16 16 Blood Pressure Blood Pressure [Ri ght Arm] Pulse Oximetry 95 95 Oxygen Delivery Me thod Room Air Room Air 06/26/22 07:00 06/26/22 10:30 Temperature 97.9 F 97.9 F Pulse Rate 88 Pulse Rate [Pulse Oximeter] 88 Respiratory Rate 16 16 Blood Pressure 142/84 H Blood Pressure [Ri ght Arm] 142/84 H Pulse Oximetry 94 Oxygen Delivery Me thod Room Air Discharge Plan Discharge Disposition: [facility] Date of Admission: 06/14/22 18:07 Attending Provider on Discharge: Deena Adams Primary Care Provider: Rose Painter Condition: Improved Anticipated Discharge Date/Time: 06/26/22 11:30 Discharge Medications: New losartan 50 mg Tablet 50 mg PO DAILY Qty: 30 0RF acetaminophen 325 mg Tablet 975 mg PO Q8H PRNQty: 30 0RF triamcinolone acetonide 0.1 % Cream 1 applic topical BID Qty: 80 0RF amlodipine 10 mg Tablet 10 mg PO DAILY Qty: 30 0RF emollient [Vanicream] Cream 1 applic topical BID Qty: 500 0RF Continued gabapentin 600 mg tablet 600 mg PO BID multivitamin [Multiple Vitamins] Tablet 1 tab PO DAILY cholecalciferol (vitamin D3) 50 mcg (2,000 unit) capsule 50 mcg PO DAILY zinc gluconate 50 mg tablet 50 mg PO DAILY Discontinued amlodipine 10 mg tablet 5 mg PO DAILY losartan 25 mg tablet 25 mg PO DAILY oxycodone 5 mg tablet 5 mg PO Q6H PRN ibuprofen [Advil] 200 mg tablet 600 mg PO TID PRN diphenhydramine HCl [Allergy (diphenhydramine)] 25 mg capsule 25 mg PO QHS PRN Discharge Orders: Discharge Order (Routine); Ordered 06/26/22 Ordered By: Deena Adams Activity Level: Activity as Tolerated Activity Restrictions: per PT/OT Discharge Diet: Regular Follow Up Appointments: [facility] [Outside] Rose Painter MD [Primary Care Provider] - (within 1 week from SNF discharge) Admit to: SNF Discharge Potential: Good Length of Stay: <30 days Can use facility standing orders?: Yes Code Status: Witnessed Arrest Only TEDs: N/A Rehab Potential: Good Therapy: Physical Therapy and Occupational Therapy Therapy Orders: Evaluate and Treat, Gait Training and ADL Oxygen: No Urinary Catheter: No Glucose Checks: n/a Next INR: n/a Orders are good >30 days: Yes Signature: Deena Adams MD
--- NOTE | 2022-06-26 12:00 | PC.NURSE ---
NURSE TO NURSE CALLED AT 1030 ([phone]) VML, CUTTER MACHINE ATTEMPTED 2ND CALL TO UPDATE ON DELAY IN TRANSPORTATION AT 1200 WITH NO ANSWER AND NO VOICEMAIL OPTION AT [phone].
--- NOTE | 2022-06-26 12:11 | PC.SOCIAL ---
Addendum entered by VALDEMAR Rodriguez 06/28/22 16:53: Rotary Drill Operator has read and agrees with this note. Original Note: PAS completed for pt., #[id number].
--- NOTE | 2022-06-26 14:01 | PC.NURSE ---
Pt pleasant and cooperative. pt was supposed to d/c to [facility] today however d/t insurance issues there is a delay. transport was canceled. pt requesting SS to speak to her, contract writer verbalized understanding and called SS who also verbalized understanding. pt steady on feet with Ax1 with walker and GB. No IV. Pt is upset about delay in discharge however mood improving. VSS and afebrile.
[2022-06-26 19:03] VITALS: BP 132/63; PULSE 76; RESP 16; TEMP 36.6; O2SAT 95
[2022-06-26] MEDS: ENOXAPARIN 40 MG/0.4 ML INJ SUBCUT (20:35)
--- NOTE | 2022-06-26 22:34 | PC.NURSE ---
Shift [id number]- Patient denies pain throughout shift. She is up with walker, gait belt and assist of 1 and tolerates well. She showers tonight. Appetite is intact.
[2022-06-26 23:00] VITALS: RESP 16; O2SAT 95
[2022-06-27] VITALS (7 sets, daily range): BP systolic 112–173; BP diastolic 65–89; PULSE 70–88; RESP 16–18; TEMP 36.4–36.7; O2SAT 94–98
--- NOTE | 2022-06-27 05:29 | PC.NURSE ---
Shift note: Pt is doing well. Able get enough sleep tonight. No n/v/d and pain reported.
[2022-06-27] MEDS: AMLODIPINE 10 MG TABLET PO (09:25)
[2022-06-27] MEDS: GABAPENTIN 600 MG TABLET PO ×2 (09:25→20:33)
[2022-06-27] MEDS: LOSARTAN POTASSIUM 50 MG TABLET PO (09:25)
[2022-06-27] MEDS: ACETAMINOPHEN 325 MG TABLET 975 MG PO (09:42)
[2022-06-27] MEDS: EMOLLIENT BASE CREAM 1 APPLIC TOPICAL ×2 (09:43→20:33)
--- NOTE | 2022-06-27 15:20 | P.IMPN_ITS ---
Progress Note: A&P Assessment and plan (1) Fall: Problem details: - presumably 2/2 COVID encephalopathy, also noted to have + urine culture for E coli and Pseudomonas aeruginosa on admission - no evidence of cardiac arrythmia or significant orthostasis during stay - appreciate assistance from PT and OT Status: Acute (2) Rhabdomyolysis: Problem details: - on admission, resolved with IVFs Status: Acute (3) COVID-19: Problem details: + 06/14/2022 - treated with 3 days course of Remdesivir Status: Acute (4) Essential hypertension: Problem details: - continued home norvasc and losartan Status: Acute (5) Altered mental status: Problem details: - Differential diagnosis includes COVID encephalopathy, post-traumatic concussion syndrome, evolving chronic cognitive impairment - has continued to improve since admission Status: Acute (6) UTI (urinary tract infection): Problem details: - low CFU of Pseudomonas and E coli - completed 5 day course of Cipro Status: Acute Plan - medically stable - await insurance decision regarding rehab coverage (patient accepted at [facility]) Subjective Date Seen: 06/27/22 Interval history: Unfortunately, patient's insurance has appealed patient's transfer to [facility] as scheduled for 06/26. We await their decision. Ashley is stable, denies no concerns for hospitalist team. Exam Narrative: Exam Narrative: GEN: Alert and oriented, sitting comfortably in bedside chair HEENT: Normal external ears, EOMIs bilaterally, no scleral icterus CV: RRR, soft systolic murmur without concerning features R: LCTA bilaterally, no wheezing or rales Ext: wwp, no concerning edema Skin: No concerning skin lesions or rashes on exposed skin Neuro: Nonfocal Psych: Appropriate? Const: Vital Signs, click to edit/add: Vital Signs - 24 hr 06/26/22 15:33 06/26/22 19:03 06/26/22 23:00 Temperature 98 F Pulse Rate [Left A pical] Pulse Rate [Pulse Oximeter] 76 Respiratory Rate 16 16 Blood Pressure [Ri ght Arm] 132/63 Pulse Oximetry 95 95 Oxygen Delivery Me thod Room Air Room Air Room Air 06/27/22 07:00 06/27/22 07:00 Temperature 98.1 F Pulse Rate [Left A pical] 88 Pulse Rate [Pulse Oximeter] 88 Respiratory Rate 16 Blood Pressure [Ri ght Arm] 137/65 Pulse Oximetry 98 98 Oxygen Delivery Me thod Room Air Room Air
--- NOTE | 2022-06-27 15:38 | PC.NURSE ---
Pt had prn tylenol 975 mg for c/o generalized arthritic pain with relief. Please see Emar for scheduled meds. Eval by Dr. Adams. Pt awaiting insurance confirmation which is needed before d/c to SNF. It is frustrating that I can't leave. This is an expensive place to watch TV all day. Up with SBA of one and GB. Adequate I and O. One small loose stool noted. Report to Denisse ESPARZA for evening shift.
[2022-06-27] MEDS: ENOXAPARIN 40 MG/0.4 ML INJ SUBCUT (20:33)
--- NOTE | 2022-06-27 21:16 | PC.NURSE ---
Shift Summary: Patient pleasant and cooperative. Has verbalized frustrations with not being able to discharge to [facility] today. Up with SBA, walker and gait belt. Denies pain and SOB. Was able to take shower this evening with staff assist. Tolerating regular diet, denies nausea.
--- NOTE | 2022-06-28 05:42 | PC.NURSE ---
[id number] Pt slept well during night, up to br x1, tolerated well. denies any pain.
[2022-06-28 07:00] VITALS: BP 102/63; PULSE 70; PULSE 77; RESP 20; TEMP 37.1; O2SAT 96
[2022-06-28 07:19] VITALS: BP 142/84; PULSE 88; RESP 18; TEMP 36.5
[2022-06-28] MEDS: EMOLLIENT BASE CREAM 1 APPLIC TOPICAL (10:02)
[2022-06-28] MEDS: GABAPENTIN 600 MG TABLET PO (10:03)
--- NOTE | 2022-06-28 13:53 | PM.DS1 ---
DS: Providers Provider Date Seen: 06/28/22 Date of admission: 06/14/22 18:07 Primary care physician: Rose Painter MD Admitting Clinician: Deena Adams MD Consults: OT, PT, RT Attending Physician on discharge: Deena Adams MD Date of Discharge: 06/28/22 DS: Diagnosis Discharge Diagnosis (1) COVID-19: Status: Acute Problem details: + 06/14/2022 - treated with 3 days course of Remdesivir (2) Rhabdomyolysis: Status: Acute Problem details: - on admission, resolved with IVFs (3) UTI (urinary tract infection): Status: Acute Problem details: - low CFU of Pseudomonas and E coli - completed 5 day course of Cipro (4) Altered mental status: Status: Acute Problem details: - Differential diagnosis includes COVID encephalopathy, post-traumatic concussion syndrome, evolving chronic cognitive impairment - has continued to improve since admission (5) Elevated LFTs: Status: Acute Problem details: - likely related to prolonged immobilization, rhabdo, dehydration; trending down (6) Fall: Status: Acute Problem details: - presumably 2/2 COVID encephalopathy, also noted to have + urine culture for E coli and Pseudomonas aeruginosa on admission - no evidence of cardiac arrythmia or significant orthostasis during stay - appreciate assistance from PT and OT (7) Essential hypertension: Status: Acute Problem details: - continued home norvasc and losartan, both increased in dose (10mg of Amlodipine, 50mg of Norvasc) DS: Summary Hospital Course Hospital Course: Denise is a delightful 81-year-old female who presented to the hospital after a fall at home and rhabdomyolysis, incidentally found to be positive for COVID in the emergency room. She was admitted to the hospital, rhabdomyolysis resolved with IV fluid rehydration. Noted to have a UTI, treated with 5 day course of Cipro. Small abrasion noted lower extremities, managed by nursing staff. She was seen by PT and OT and SNF stay recommended given her deconditioning and fall risk. MOCA upon discharge . Unfortunately, her SNF discharge was delayed by insurance, and while waiting for their decision, patient felt that she had improved sufficiently to go home. Comorbidities remained stable, home medications continued. DOSE CHANGES: Amlodipine increased to 10 mg (did not note an increase in lower extremity edema), Losartan increased to 50 mg. She did not require oxycodone during stay (takes at bedtime at home for neck pain). Patient was on these dosages for most of her hospital stay with no concerning hypotension or dizziness. Status at Discharge Functional status at discharge: independent ambulation Overall status at discharge: patient is back to baseline Time Spent with Patient Time attestation: Total time spent providing and/or coordinating discharge services: Time spent: Greater than 30 minutes Specific discharge activities: Discharge med rec, dosage changes, care coordination Exam Narrative: Exam Narrative: GEN: Alert and oriented, answering questions appropriately HEENT: Normal external ears, EOMIs bilaterally, no scleral icterus CV: RRR, No concerning murmurs, rubs, or gallops R: LCTA bilaterally without concerning wheezing, rales, or rhonchi Ext: wwp, no concerning edema Skin: No concerning skin lesions or rashes on exposed skin, abrasions to lower extremities are covered Neuro: Nonfocal Psych: Appropriate Const: Vital Signs, click to edit/add: Vital Signs - 24 hr 06/27/22 16:24 06/27/22 19:42 06/27/22 23:00 Temperature 97.7 F Pulse Rate Pulse Rate [Left A pical] Pulse Rate [Pulse Oximeter] 70 Respiratory Rate 18 18 18 Blood Pressure Blood Pressure [Ri ght Arm] 112/71 Pulse Oximetry 94 97 97 Oxygen Delivery Me thod Room Air Room Air Room Air 06/28/22 07:19 06/28/22 07:00 06/28/22 07:00 Temperature 97.7 F Pulse Rate 88 Pulse Rate [Left A pical] 77 Pulse Rate [Pulse Oximeter] 70 Respiratory Rate 18 20 Blood Pressure 142/84 H Blood Pressure [Ri ght Arm] Pulse Oximetry 96 Oxygen Delivery Me thod Room Air 06/28/22 07:00 Temperature 98.7 F Pulse Rate Pulse Rate [Left A pical] Pulse Rate [Pulse Oximeter] 70 Respiratory Rate 20 Blood Pressure Blood Pressure [Ri ght Arm] 102/63 Pulse Oximetry 96 Oxygen Delivery Me thod Room Air Discharge Plan Discharge Disposition: Home, Self-Care Date of Admission: 06/14/22 18:07 Attending Provider on Discharge: Deena Adams Primary Care Provider: Rose Painter Condition: Improved Anticipated Discharge Date/Time: 06/28/22 13:21 Discharge Medications: New losartan 50 mg Tablet 50 mg PO DAILY Qty: 30 0RF acetaminophen 325 mg Tablet 975 mg PO Q8H PRNQty: 30 0RF triamcinolone acetonide 0.1 % Cream 1 applic topical BID Qty: 80 0RF amlodipine 10 mg Tablet 10 mg PO DAILY Qty: 30 0RF emollient [Vanicream] Cream 1 applic topical BID Qty: 500 0RF losartan 50 mg tablet 50 mg PO DAILY Qty: 30 3RF amlodipine 10 mg tablet 10 mg PO DAILY Qty: 30 2RF Continued gabapentin 600 mg tablet 600 mg PO BID multivitamin [Multiple Vitamins] Tablet 1 tab PO DAILY cholecalciferol (vitamin D3) 50 mcg (2,000 unit) capsule 50 mcg PO DAILY zinc gluconate 50 mg tablet 50 mg PO DAILY Discontinued amlodipine 10 mg tablet 5 mg PO DAILY losartan 25 mg tablet 25 mg PO DAILY oxycodone 5 mg tablet 5 mg PO Q6H PRN ibuprofen [Advil] 200 mg tablet 600 mg PO TID PRN diphenhydramine HCl [Allergy (diphenhydramine)] 25 mg capsule 25 mg PO QHS PRN Discharge Orders: Discharge Order (Routine); Ordered 06/26/22 Ordered By: Deena Adams Patient Education: COVID-19 (Coronavirus Disease 2019) (DC) Additional Instructions: Please note increased dose of Amlodipine (10mg) and Losartan (50mg). Consider stopping your Oxycodone at home (you didn't need any while you were here, this can have side effects). Activity Level: Activity as Tolerated Discharge Diet: Regular Follow Up Appointments: [facility] [Outside] Rose Painter MD [Primary Care Provider] - (see Dr. Painter next week for hospital f/u) Forms: [employer] Info Instructions
--- NOTE | 2022-06-28 14:53 | PC.NURSE ---
patient given information on [facility]
--- NOTE | 2022-06-28 16:54 | PC.SOCIAL ---
Social work: Met with pt before noon regarding d/c plan. At that time she was planning to go to [facility] for short term rehab if authorized by her insurance. Pt had already been clinically accepted to [facility] and was just waiting for insurance authorization. Patient has expressed frustration at the insurance for the amount of time is it taking for them to make a decision on authorization. 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 Pt shared she has called her insurance and they were very rude and stated that they had up to 14 days to make a decision on whether or not they would cover a [place] [facility] stay. Given this information, pt states she is no longer interested in going to the [place] [facility] and is planning to go home today. Pt states she will be fine at home and is not interested in resources for delivered meals or home health nurse care. Pt was provided with [employer] information requested. Pt arranged for her nephew to be at her home to assist in getting her settled into her apartment at discharge. Pt requested 7th grade social studies teacher arrange for [employer] and plans to pay for that transportation privately. Set up [employer] transportation for a 2:45 meat pickler. RN aware of arrangements made. Just before pt discharged, received call from [facility] stating insurance has denied authorization for a [place] [facility] stay. Informed pt of insurance decision.
== END 2022-06-28 14:54 | disposition home or self-care (01) | DRG 178 ==
LOC: ED 13:11 → MEDSURG 14:25
PROVIDERS: Family Medicine; Admitting Provider Family Medicine; Emergency Provider Family Medicine; PCP Family Medicine; Visit Provider Family Medicine
DX: U07.1 COVID-19 (principal); G93.49 Other encephalopathy; M62.82 Rhabdomyolysis; N39.0 Urinary tract infection, site not specified; L03.116 Cellulitis of left lower limb; B96.20 Unspecified Escherichia coli [E. coli] as the cause of diseases classified elsewhere; B96.5 Pseudomonas (aeruginosa) (mallei) (pseudomallei) as the cause of diseases classified elsewhere; E86.0 Dehydration; R53.1 Weakness; R26.89 Other abnormalities of gait and mobility; S81.811A Laceration without foreign body, right lower leg, initial encounter; S80.812A Abrasion, left lower leg, initial encounter; S49.92XA Unspecified injury of left shoulder and upper arm, initial encounter; W19.XXXA Unspecified fall, initial encounter; Y92.039 Unspecified place in apartment as the place of occurrence of the external cause; Z91.81 History of falling; I10 Essential (primary) hypertension; G89.29 Other chronic pain; M48.02 Spinal stenosis, cervical region; R73.03 Prediabetes; G31.84 Mild cognitive impairment of uncertain or unknown etiology; L85.3 Xerosis cutis; R15.9 Full incontinence of feces; R32 Unspecified urinary incontinence; Z96.651 Presence of right artificial knee joint; E78.5 Hyperlipidemia, unspecified; M85.80 Other specified disorders of bone density and structure, unspecified site
CPT/HCPCS: 36415; 70450; 71045; 73060; 73080; 80053; 81001; 82077; 82550; 82803; 83605; 83735; 83880; 84145; 84484; 85025; 85027; 85610; 86140; 87040; 87086; 87186; 87502; 87634; 87635; 93005; 93971; 94664; 94761; 97110; 97116; 97129; 97162; 97166; 97530; 97535; 99284; 99285; A9270; J0690; J1650; J7030; J7050; J7120

== ENCOUNTER 2023-10-17 00:42 | Outpatient (CLI) | payer BC, MEDICARE, SELFPAY | END 2023-10-17 00:43 | disposition home or self-care (01) | LOC: AMB 10-21 23:49 | PROVIDERS: PCP Family Medicine; Visit Provider Family Medicine | DX: R41.82 Altered mental status, unspecified (principal) | CPT/HCPCS: A0425; A0429 ==

== ENCOUNTER 2023-10-17 01:18 | Emergency (ER) | payer BC, SELFPAY ==
[2023-10-17] VITALS (7 sets, daily range): BP systolic 142–168; BP diastolic 70–91; PULSE 72–90; RESP 12–18; TEMP 36.7–36.8; O2SAT 97–99; BMI 25.8
--- NOTE | 2023-10-17 02:05 | CT_ITS ---
Patient: JACQUELINE BLANK Facility:?[facility] Patient ID:?[id number] Site Patient ID:?[id number]. Site :?[id number] Study:?CT-Head without contrast-10/17/2023 2:40:09 AM Ordering Physician:Shaheed Antunez Final Report: Indication: Confusion Technique: Noncontrast CT through the head with multiplanar reformats Comparison: CT head performed 06/14/2022 Findings: Brain: No acute hemorrhage. No acute infarct. No significant mass effect or midline shift. No gross evidence of a mass lesion or cerebral edema. Moderate to severe chronic microvascular ischemic disease. [id number] global parenchymal volume loss. Ventricles: No acute abnormality appreciated. Orbits, sinuses, mastoids: Left frontal, ethmoid, and maxillary sinus opacification and air-fluid levels. Calvarium and soft tissues: No acute abnormality appreciated. Impression: Findings suspicious for acute sinusitis. Please note that all CT scans at this facility use dose modulation, iterative reconstruction, and/or weight-based dosing when appropriate to reduce radiation dose to as low as reasonably achievable. Dictated by Simeon Harvey MD @ 10/17/2023 2:44:54 AM Signed by:?Simeon Harvey MD @10/17/2023 2:44:54 AM (Electronic Signature)
[2023-10-17 02:28] LABS: Basophils Absolute Auto 0.04 K/uL (0.00-0.30); Basophils Percent Auto 0.4 % (0.0-3.0); Hematocrit 38.5 % (33.0-51.0); Hemoglobin* 12.5 gm/dL (12.0-16.0); Immature Granulocytes Abs Auto 0.02 K/uL (0.00-0.30); Immature Granulocytes Pct Auto 0.2 %; Lymphocytes Percent Auto 13.9 % (20-44); Mean Corpuscular HGB Conc 33 gm/dL (32-36); Mean Corpuscular Hemoglobin 31 pg (26-34); Mean Corpuscular Volume 95 fL (80-100); Monocytes Percent Auto 8.1 % (0.0-11.0); Neutrophils Percent Auto 75.4 % (42.0-72.0); Platelet Count* 414 K/uL (140-440); RDW Coefficient of Variation % 12.7 % (11.5-15.5); Red Blood Count 4.05 m/uL (4.00-5.20); White Blood Count* 10.05 K/uL (4.50-11.00)
[2023-10-17 02:38] LABS: Chloride* 102 mmol/L (96-114)
[2023-10-17 02:39] LABS: Potassium* 3.9 mmol/L (3.6-5.1); Sodium* 139 mmol/L (135-149)
[2023-10-17 02:41] LABS: Anion Gap 9 mEq/L (7-15); Carbon Dioxide* 28 mmol/L (20-32); Creatinine* 0.7 mg/dL (0.5-1.5); Estimated Glomerular Filt Rate 85 ml/min; Slide Review Reflex No
[2023-10-17 02:42] LABS: Blood Urea Nitrogen* 31 mg/dL (7-30); Calcium* 10.3 mg/dL (8.4-10.6); Glucose* 148 mg/dL (60-115)
[2023-10-17 02:43] LABS: Ethanol* < 0.01 % (0.01-0.03)
--- NOTE | 2023-10-17 02:54 | ED.GENADULT ---
HPI - General Adult General Date Seen: 10/17/23 Chief complaint: Altered Mental Status Stated complaint: altered mental status Time Seen by Provider: 10/17/23 01:23 Source: patient, EMS, RN notes reviewed, old records reviewed and police History of Present Illness HPI narrative: Confusion pt. brought into ER by ambulance for confusion. pt. was walking in hallways be herself, talking to herself. pt. a &ox2-3 in triage. denies pain, n/v, diarrhea, fevers. unsure if patient has been taking medications properly Patient is the 83-year-old female brought in for an assessment of all notable status. She was initially cleared by the police issues walking around her apartment block. She knows the year, but not time, but knows the place. She tells me she is in no pain does not really know why that she has been brought here, and argues with me that she is actually 73 years old and not [address] Painter at the [facility]. 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 Denies use of alcohol, denies use of drugs, no history of falls or injury. Associated symptoms: denies other symptoms Related Data Home Medications Medication Instructions Recorded Confirmed cholecalciferol (vitamin D3) 50 50 mcg PO DAILY 06/14/22 10/17/23 mcg (2,000 unit) capsule gabapentin 600 mg tablet 600 mg PO BID 06/14/22 10/17/23 multivitamin (Multiple Vitamins 1 tab PO DAILY 06/14/22 10/17/23 tablet) zinc gluconate 50 mg tablet 50 mg PO DAILY 06/14/22 10/17/23 Previous Rx's Medication Instructions Recorded acetaminophen 325 mg tablet 975 mg (3 x 325 mg) PO Q8H PRN #30 06/26/22 tabs amlodipine 10 mg tablet 10 mg PO DAILY #30 tabs 06/26/22 emollient (Vanicream topical) 1 applic topical BID #500 grams 06/26/22 triamcinolone acetonide 0.1 % 1 applic topical BID #80 grams 06/26/22 topical cream losartan 50 mg tablet 50 mg PO DAILY #30 tabs 06/28/22 Allergies Allergy/AdvReac Type Severity Reaction Status Date / Time No Known Drug Allergies Allergy Verified 10/17/23 01:26 Review of Systems Status of ROS: Reports: 10 or more systems reviewed and unremarkable except as noted in History and below [facility] Medical History (Updated 10/17/23 @ 03:27 by Mat Silva MD) Dry skin dermatitis ?L85.3 - Xerosis cutis (ICD-10) Chronic pain ?G89.29 - Other chronic pain (ICD-10) Osteopenia ?M85.80 - Other specified disorders of bone density and structure, unspecified site (ICD-10) Prediabetes ?R73.03 - Prediabetes (ICD-10) Difficulty balancing ?R29.818 - Other symptoms and signs involving the nervous system (ICD-10) Hyperlipidemia ?E78.5 - Hyperlipidemia, unspecified (ICD-10) Cervical spinal stenosis ?M48.02 - Spinal stenosis, cervical region (ICD-10) Essential hypertension ?I10 - Essential (primary) hypertension (ICD-10) Surgical History Total knee replacement status ?Z96.659 - Presence of unspecified artificial knee joint (ICD-10) S/P rotator cuff repair ?Z98.890 - Other specified postprocedural states (ICD-10) H/O wrist surgery ?Z98.890 - Other specified postprocedural states (ICD-10) S/P lumbar fusion ?Z98.1 - Arthrodesis status (ICD-10) S/P cervical spinal fusion ?Z98.1 - Arthrodesis status (ICD-10) Social History Highest level of school completed/degree received: Associate degree: occupational, technical, vocational program Smoking Status: Never smoker Do you use any of these nicotine containing products: None Second hand tobacco smoke exposure: No How often do you have a drink containing alcohol: never How often do you have six or more drinks on one occasion: Never AUDIT-C Alcohol total score: 0 Non-prescribed substance use: denies use Caffeine: Yes service: Yes Exam Narrative: Exam Narrative: Patient is speaking normally, no problem with slurring words, oriented x3. Head eyes ears nose and throat exam show equal pupils, no scleral icterus, extraocular muscles are normal, no facial droop, speech is normal, trachea normal and midline. Thyroid normal midline palpable not enlarged. Chest shows symmetrical rise bilaterally, normal auscultation with no wheezes, no increased work of breathing, no overt bruising or lesions seen, no tenderness is noted on auscultation. Heart sounds normal with no S3-S4 no murmurs clicks or gallops. Abdomen shows no obvious masses or hepatosplenomegaly, no organomegaly, bowel sounds are normal in all quadrants. No tenderness is noted also in all quadrants. Upper and lower extremities show normal power, normal range of motion, pulses are normal, sensations normal, fine motor movements are normal, pelvis is stable to rocking. Cervical spine shows normal range of motion, and palpably not tender. Thoracic spine shows normal range of motion, and palpably not tender, lumbar spine shows no tenderness to palpation percussion and is otherwise normal range of motion. Skin shows no rashes, petechiae or eccymosis. She is able to walk for me normally, she does not have a wide-based gait, no tremors, follows my commands normal Const: Vital Signs, click to edit/add: Vital Signs - 24 hr 10/17/23 01:24 10/17/23 03:17 10/17/23 06:04 Temperature 98.1 F 98.1 F 98.3 F Pulse Rate [Right Pulse Oximeter] 89 90 84 Respiratory Rate 18 18 18 Blood Pressure [Ri ght Upper Arm] 142/81 H 162/84 H 158/84 H Pulse Oximetry 99 99 99 Oxygen Delivery Me thod Room Air Room Air Room Air Course Reevaluation(s) Time of Reevaluation #1: 06:48 Reevaluation #1: Patient is remained stable and slept all night, I do think that she needs to see her primary care physician, and have the county come out and assess the situation, but at this time she is not holdable. She definitely does have some degree of memory impairment, but seems to be still very functional. Vital Signs Vital signs: Initial Vital Signs Temperature 98.1 F 10/17/23 01:24 Temperature Source Temporal Artery Scan 10/17/23 01:24 Pulse Rate 89 10/17/23 01:24 Respiratory Rate 18 10/17/23 01:24 Blood Pressure 142/81 H 10/17/23 01:24 Blood Pressure Mean 101 10/17/23 01:24 Blood Pressure Position Sitting 10/17/23 01:24 Pulse Oximetry 99 10/17/23 01:24 Oxygen Delivery Method Room Air 10/17/23 01:24 Vital Signs Temperature 98.1 F 10/17/23 01:24 Pulse Rate 89 10/17/23 01:24 Respiratory Rate 18 10/17/23 01:24 Blood Pressure 142/81 H 10/17/23 01:24 Pulse Oximetry 99 10/17/23 01:24 Oxygen Delivery Method Room Air 10/17/23 01:24 Temperature 98.3 F 10/17/23 06:04 Pulse Rate 84 10/17/23 06:04 Respiratory Rate 18 10/17/23 06:04 Blood Pressure 158/84 H 10/17/23 06:04 Pulse Oximetry 99 10/17/23 06:04 Oxygen Delivery Method Room Air 10/17/23 06:04 Medications Administered Medications: Discontinued Medications Generic Name Dose Route Start Last Admin Trade Name Freq PRN Reason Stop Dose Admin Amoxicillin 500 mg 10/17/23 04:04 10/17/23 04:18 Amoxicillin 250 Mg Capsule PO 10/17/23 04:05 500 mg ONCE ONE Administration Medical Decision Making [facility] Narrative Medical decision making narrative: Multiple differential diagnoses were considered for altered mental status. The life-threatening differential diagnosis considered include: Meningitis/encephalitis, bacteremia, subdural, cerebrovascular accident, SAH, and hypertensive encephalopathy. Other differential diagnosis included include medication effect, hypoxia, hypoglycemia, hypercalcemia, hypo or hypernatremia, hypothyroidism, hepatic encephalopathy, carbon monoxide poisoning, UTI, pneumonia, depression, seizure, as well as other etiologies. This nice lady is sent to the ER for a check on bone the rash adults status. If her laboratory work returns normal, I think that we can likely discharge her home, she does have some evidence of sinusitis on her CT, and he likely should treat her with a course of amoxicillin for this. I will send this into the pharmacy of her choice. And give her a dose here before she leaves. I think having a [facility] follow-up with this, for her status at home. Medical Records Medical records reviewed: Yes I reviewed the patient's medical records Medical records narrative: I reviewed medical records from her recent admission here in 2021. Lab Data Lab results reviewed: Yes I reviewed the patient's lab results Labs: Lab Results 10/17/23 10/17/23 10/17/23 Range/Units 02:10 02:20 02:30 WBC 10.05 (4.50-11.00) K/uL RBC 4.05 (4.00-5.20) m/uL Hgb 12.5 (12.0-16.0) gm/dL Hct 38.5 (33.0-51.0) % MCV 95 (80-100) fL MCH 31 (26-34) pg MCHC 33 (32-36) gm/dL RDW Coeff of Gege 12.7 (11.5-15.5) % Plt Count 414 (140-440) K/uL Neut % (Auto) 75.4 H (42.0-72.0) % Lymph % (Auto) 13.9 L (20-44) % [place] % (Auto) 8.1 (0.0-11.0) % Eos % (Auto) 2.0 (0.0-7.0) % Baso % (Auto) 0.4 (0.0-3.0) % Neut # (Auto) 7.60 H (1.7-7.0) K/uL Lymph # (Auto) 1.40 (0.90-2.90) K/uL [place] # (Auto) 0.80 (0.00-0.90) K/UL Eos # (Auto) 0.20 (0.00-0.50) K/uL Baso # (Auto) 0.04 (0.00-0.30) K/uL Abs Immat Gran (auto) 0.02 (0.00-0.30) K/uL Imm/Tot Granulo (auto) 0.2 % Sodium 139 (135-149) mmol/L Potassium 3.9 (3.6-5.1) mmol/L Chloride 102 (96-114) mmol/L Carbon Dioxide 28 (20-32) mmol/L Anion Gap 9 (7-15) mEq/L BUN 31 H (7-30) mg/dL Creatinine 0.7 (0.5-1.5) mg/dL Estimated Creat Clear 39.20 Estimated GFR 85 ml/min Glucose 148 H (60-115) mg/dL Calcium 10.3 (8.4-10.6) mg/dL TSH 2.060 (0.270-4.20) uIU/mL Urine Color Yellow (Yellow) Urine Appearance Cloudy A (Clear) Urine pH 6.0 (5.0-8.5) Ur Specific [place] >= 1.030 (1.000-1.030) Urine Protein Trace A (Negative) Urine Glucose (UA) Negative (Negative) Urine Ketones Negative (Negative) Urine Blood Trace-lysed A (Negative) Urine Nitrite Negative (Negative) Urine Bilirubin Negative (Negative) Urine Urobilinogen 0.2 (0.2-1.0) Ur Leukocyte Esterase 1+ A (Negative) Urine RBC 0-2 (0-2) Urine WBC 2-5 (0-5) Ur Squamous Epith Cells Few (None-Few) Urine Bacteria Few A (None) Urine Opiates Screen (Negative) Ur Oxycodone Screen (Negative) Urine Methadone Screen (Negative) Ur Barbiturates Screen (Negative) U Tricyclic Antidepress (Negative) Ur Phencyclidine Scrn (Negative) Ur Amphetamines Screen (Negative) U Methamphetamines Scrn (Negative) U Benzodiazepines Scrn (Negative) Urine Cocaine Screen (Negative) U Marijuana (THC) Screen (Negative) Ur Drug Screen Comment Ethyl Alcohol < 0.01 L (0.01-0.03) % 10/17/23 Range/Units 02:35 WBC (4.50-11.00) K/uL RBC (4.00-5.20) m/uL Hgb (12.0-16.0) gm/dL Hct (33.0-51.0) % MCV (80-100) fL MCH (26-34) pg MCHC (32-36) gm/dL RDW Coeff of Gege (11.5-15.5) % Plt Count (140-440) K/uL Neut % (Auto) (42.0-72.0) % Lymph % (Auto) (20-44) % Bro[place] % (Auto) (0.0-11.0) % Eos % (Auto) (0.0-7.0) % Baso % (Auto) (0.0-3.0) % Neut # (Auto) (1.7-7.0) K/uL Lymph # (Auto) (0.90-2.90) K/uL [place] # (Auto) (0.00-0.90) K/UL Eos # (Auto) (0.00-0.50) K/uL Baso # (Auto) (0.00-0.30) K/uL Abs Immat Gran (auto) (0.00-0.30) K/uL Imm/Tot Granulo (auto) % Sodium (135-149) mmol/L Potassium (3.6-5.1) mmol/L Chloride (96-114) mmol/L Carbon Dioxide (20-32) mmol/L Anion Gap (7-15) mEq/L BUN (7-30) mg/dL Creatinine (0.5-1.5) mg/dL Estimated Creat Clear Estimated GFR ml/min Glucose (60-115) mg/dL Calcium (8.4-10.6) mg/dL TSH (0.270-4.20) uIU/mL Urine Color (Yellow) Urine Appearance (Clear) Urine pH (5.0-8.5) Ur Specific [place] (1.000-1.030) Urine Protein (Negative) Urine Glucose (UA) (Negative) Urine Ketones (Negative) Urine Blood (Negative) Urine Nitrite (Negative) Urine Bilirubin (Negative) Urine Urobilinogen (0.2-1.0) Ur Leukocyte Esterase (Negative) Urine RBC (0-2) Urine WBC (0-5) Ur Squamous Epith Cells (None-Few) Urine Bacteria (None) Urine Opiates Screen Negative (Negative) Ur Oxycodone Screen Negative (Negative) Urine Methadone Screen Negative (Negative) Ur Barbiturates Screen Negative (Negative) U Tricyclic Antidepress Negative (Negative) Ur Phencyclidine Scrn Negative (Negative) Ur Amphetamines Screen Negative (Negative) U Methamphetamines Scrn Negative (Negative) U Benzodiazepines Scrn Negative (Negative) Urine Cocaine Screen Negative (Negative) U Marijuana (THC) Screen Negative (Negative) Ur Drug Screen Comment See Note Ethyl Alcohol (0.01-0.03) % Imaging Data CT scan - head: Attestation: I have reviewed the pertinent imaging results. My impression: See below Radiologist's impression: Patient: JACQUELINE BLANK Facility:?[facility] Patient ID:?[id number] Site Patient ID:?[id number]. Site :?[id number] Study:?CT Head without contrast-10/17/2023 2:40:09 AM Ordering Physician:?Shaheed Silva Final Report: Indication: Confusion Technique: Noncontrast CT through the head with multiplanar reformats Comparison: CT head performed 06/14/2022 Findings: Brain: No acute hemorrhage. No acute infarct. No significant mass effect or midline shift. No gross evidence of a mass lesion or cerebral edema. Moderate to severe chronic microvascular ischemic disease. [id number] global parenchymal volume loss. Ventricles: No acute abnormality appreciated. Orbits, sinuses, mastoids: Left frontal, ethmoid, and maxillary sinus opacification and air-fluid levels. Calvarium and soft tissues: No acute abnormality appreciated. Impression: Findings suspicious for acute sinusitis. Please note that all CT scans at this facility use dose modulation, iterative reconstruction, and/or weight-based dosing when appropriate to reduce radiation dose to as low as reasonably achievable. Dictated by Simeon Harvey MD @ 10/17/2023 2:44:54 AM (Electronic Signature) ECG Data Attestation: I personally reviewed and interpreted this ECG as follows: Interpretation: EKG shows normal sinus rhythm with a ventricular rate of 86, QT and QTC intervals are normal, no acute ST wave changes. Discharge Plan Discharge Clinical Impression: Sinusitis, Impaired memory, Altered mental status Patient Disposition: Home, Self-Care Condition: Stable Instructions: Sinusitis (ED) Additional Instructions: Taking medications as directed, you do have what looks like sinusitis on CT. I gave you prescription for this. I would also like you to follow-up with your primary care physician in the next week to 10 days, to get her blood pressure checked, as it is high, he may need more medications or change in her medications. Account he will be out to assess the situation at her house. Activity Level: Light activity Prescriptions: No Action gabapentin 600 mg tablet 600 mg PO BID multivitamin [Multiple Vitamins] Tablet 1 tab PO DAILY cholecalciferol (vitamin D3) 50 mcg (2,000 unit) capsule 50 mcg PO DAILY zinc gluconate 50 mg tablet 50 mg PO DAILY acetaminophen 325 mg Tablet 975 mg PO Q8H PRNQty: 30 0RF triamcinolone acetonide 0.1 % Cream 1 applic topical BID Qty: 80 0RF amlodipine 10 mg Tablet 10 mg PO DAILY Qty: 30 0RF emollient [Vanicream] Cream 1 applic topical BID Qty: 500 0RF losartan 50 mg tablet 50 mg PO DAILY Qty: 30 3RF Follow Up/Referrals: Rose Painter MD [Primary Care Provider] - Stand Alone Forms: [employer] Info Instructions
[2023-10-17 03:06] LABS: Appearance Urine Cloudy (Clear); Bilirubin Urine Negative (Negative); Blood Urine Trace-lysed (Negative); Color Urine Yellow (Yellow); Glucose Urine Negative (Negative); Ketones Urine Negative (Negative); Leukocyte Esterase Urine 1+ (Negative); Nitrite Urine Negative (Negative); Protein Urine Trace (Negative); Specific Gravity Urine >= 1.030 (1.000-1.030); Urobilinogen Urine 0.2 (0.2-1.0)
[2023-10-17 03:14] LABS: Bacteria Urine Few; RBC Urine 0-2 (0-2); Squamous Epithelial Cell Urine Few (None-Few)
[2023-10-17 03:16] LABS: Amphetamine Screen Urine Negative (Negative); Barbiturate Screen Urine Negative (Negative); Benzodiazepines Screen Urine Negative (Negative); Cannabinoid Screen Urine Negative (Negative); Cocaine Screen Urine Negative (Negative); Methadone Screen Urine Negative (Negative); Methamphetamines Screen Urine Negative (Negative); Opiate Screen Urine Negative (Negative); Oxycodone Screen Urine Negative (Negative); Phencyclidine Screen Urine Negative (Negative); Tricyclic Antidepressant Urine Negative (Negative)
[2023-10-17] MEDS: AMOXICILLIN 250 MG CAPSULE 500 MG PO (04:18)
--- NOTE | 2023-10-17 10:00 | PC.SOCIAL ---
Social work: Provided written information on Assisted Living facilities in the area, Senior linkage Line and Travel Accommodations Rater Care to be provided to family when they pick pt up at discharge. Provided contact information for this clinical social work aide if the family has questions or needs additional resources.
--- NOTE | 2023-10-17 12:39 | PC.SOCIAL ---
Discharge planning: Received call from Monique Rehman at [facility] called to say they have an open case on this patient and have been working with the family to look for an appropriate care facility with 24/ supervision as pt has been wandering from her apartment where she lives by herself. Called and spoke with pt's sister, Asuncion, who states she is the POA for finances and healthcare decisions. Sister is requesting assistance to have pt evaluated for a facility placement and states she is unable to do this from home and provide the needed supervision to pt. Sister requested evaluation by the [facility] for their memory care options. Called VILMA Joseph at [facility], who came ot the Emergency Room for a face to face visit with pt. Per Opal, pt is appropriate for admit to their memory care. Opal called to discuss plan for admit today after primary care physician visit at [facility]. gas utility worker called who confirms she is pleased with this plan and has spoken with the facility regarding placement. is aware it is a private pay placement. RN and MD aware of discharge plan. gas utility worker secure emailed pt information from this ED visit at sister's request to Opal to assist with admit to the memory care unit after primary care visit today. Called Monique Rehman at [facility] and left a message with update on discharge and placement plan.
--- NOTE | 2023-10-19 09:10 | ED_ITS ---
HPI - General Adult General Date Seen: 10/17/23 Chief complaint: Altered Mental Status Stated complaint: altered mental status Time Seen by Provider: 10/17/23 01:23 Source: patient, EMS, RN notes reviewed, old records reviewed and police History of Present Illness HPI narrative: This note is an addendum to Dr. Ocasio's his ER note from 10/17/2023 when this patient was evaluated in the ER. Patient was evaluated on for altered mental status. Urinalysis on was fairly normal looking. No significant pyuria or nitrite. Trace leukocyte esterase. Urine culture came back this morning growing [phone] colony-forming units per mL of E coli. It is sensitive to all antibiotics except for resistant to for quinolones. Dr. Huber prescribed amoxicillin to treat sinus infection. This isolate would also be sensitive to amoxicillin, so if this is a true UTI, she would be on appropriate treatment.. However in the absence of any clear UTI symptoms, I am not certain this represents a true UTI. Could be asymptomatic bacteriuria. I attempted to contact the patient at her listed phone number this morning to find updates about her condition. She did not answer her phone. Associated symptoms: denies other symptoms Related Data Home Medications Medication Instructions Recorded Confirmed cholecalciferol (vitamin D3) 50 50 mcg PO DAILY 06/14/22 10/17/23 mcg (2,000 unit) capsule gabapentin 600 mg tablet 600 mg PO BID 06/14/22 10/17/23 multivitamin (Multiple Vitamins 1 tab PO DAILY 06/14/22 10/17/23 tablet) zinc gluconate 50 mg tablet 50 mg PO DAILY 06/14/22 10/17/23 Previous Rx's Medication Instructions Recorded acetaminophen 325 mg tablet 975 mg (3 x 325 mg) PO Q8H PRN #30 06/26/22 tabs amlodipine 10 mg tablet 10 mg PO DAILY #30 tabs 06/26/22 emollient (Vanicream topical) 1 applic topical BID #500 grams 06/26/22 triamcinolone acetonide 0.1 % 1 applic topical BID #80 grams 06/26/22 topical cream losartan 50 mg tablet 50 mg PO DAILY #30 tabs 06/28/22 Allergies Allergy/AdvReac Type Severity Reaction Status Date / Time No Known Drug Allergies Allergy Verified 10/17/23 01:26 [facility] Medical History (Updated 10/17/23 @ 03:27 by Mat Silva MD) Dry skin dermatitis ?L85.3 - Xerosis cutis (ICD-10) Chronic pain ?G89.29 - Other chronic pain (ICD-10) Osteopenia ?M85.80 - Other specified disorders of bone density and structure, unspecified site (ICD-10) Prediabetes ?R73.03 - Prediabetes (ICD-10) Difficulty balancing ?R29.818 - Other symptoms and signs involving the nervous system (ICD-10) Hyperlipidemia ?E78.5 - Hyperlipidemia, unspecified (ICD-10) Cervical spinal stenosis ?M48.02 - Spinal stenosis, cervical region (ICD-10) Essential hypertension ?I10 - Essential (primary) hypertension (ICD-10) Surgical History Total knee replacement status ?Z96.659 - Presence of unspecified artificial knee joint (ICD-10) S/P rotator cuff repair ?Z98.890 - Other specified postprocedural states (ICD-10) H/O wrist surgery ?Z98.890 - Other specified postprocedural states (ICD-10) S/P lumbar fusion ?Z98.1 - Arthrodesis status (ICD-10) S/P cervical spinal fusion ?Z98.1 - Arthrodesis status (ICD-10) Social History Highest level of school completed/degree received: Associate degree: occupational, technical, vocational program Smoking Status: Never smoker Do you use any of these nicotine containing products: None Second hand tobacco smoke exposure: No How often do you have a drink containing alcohol: never How often do you have six or more drinks on one occasion: Never AUDIT-C Alcohol total score: 0 Non-prescribed substance use: denies use Caffeine: Yes service: Yes Course Vital Signs Vital signs: Initial Vital Signs Temperature 98.1 F 10/17/23 01:24 Temperature Source Temporal Artery Scan 10/17/23 01:24 Pulse Rate 89 10/17/23 01:24 Respiratory Rate 18 10/17/23 01:24 Blood Pressure 142/81 H 10/17/23 01:24 Blood Pressure Mean 101 10/17/23 01:24 Blood Pressure Position Sitting 10/17/23 01:24 Pulse Oximetry 99 10/17/23 01:24 Oxygen Delivery Method Room Air 10/17/23 01:24 Vital Signs Temperature 98.1 F 10/17/23 01:24 Pulse Rate 89 10/17/23 01:24 Respiratory Rate 18 10/17/23 01:24 Blood Pressure 142/81 H 10/17/23 01:24 Pulse Oximetry 99 10/17/23 01:24 Oxygen Delivery Method Room Air 10/17/23 01:24 Temperature 98.3 F 10/17/23 12:50 Pulse Rate 88 10/17/23 12:50 Respiratory Rate 14 10/17/23 12:50 Blood Pressure 168/91 H 10/17/23 12:50 Pulse Oximetry 98 10/17/23 12:00 Oxygen Delivery Method Room Air 10/17/23 07:17 Medications Administered Medications: Discontinued Medications Generic Name Dose Route Start Last Admin Trade Name Freq PRN Reason Stop Dose Admin Amoxicillin 500 mg 10/17/23 04:04 10/17/23 04:18 Amoxicillin 250 Mg Capsule PO 10/17/23 04:05 500 mg ONCE ONE Administration Medical Decision Making Lab Data Labs: Lab Results 10/17/23 10/17/23 10/17/23 Range/Units 02:10 02:20 02:30 WBC 10.05 (4.50-11.00) K/uL RBC 4.05 (4.00-5.20) m/uL Hgb 12.5 (12.0-16.0) gm/dL Hct 38.5 (33.0-51.0) % MCV 95 (80-100) fL MCH 31 (26-34) pg MCHC 33 (32-36) gm/dL RDW Coeff of Gege 12.7 (11.5-15.5) % Plt Count 414 (140-440) K/uL Neut % (Auto) 75.4 H (42.0-72.0) % Lymph % (Auto) 13.9 L (20-44) % [place] % (Auto) 8.1 (0.0-11.0) % Eos % (Auto) 2.0 (0.0-7.0) % Baso % (Auto) 0.4 (0.0-3.0) % Neut # (Auto) 7.60 H (1.7-7.0) K/uL Lymph # (Auto) 1.40 (0.90-2.90) K/uL [place] # (Auto) 0.80 (0.00-0.90) K/UL Eos # (Auto) 0.20 (0.00-0.50) K/uL Baso # (Auto) 0.04 (0.00-0.30) K/uL Abs Immat Gran (auto) 0.02 (0.00-0.30) K/uL Imm/Tot Granulo (auto) 0.2 % Sodium 139 (135-149) mmol/L Potassium 3.9 (3.6-5.1) mmol/L Chloride 102 (96-114) mmol/L Carbon Dioxide 28 (20-32) mmol/L Anion Gap 9 (7-15) mEq/L BUN 31 H (7-30) mg/dL Creatinine 0.7 (0.5-1.5) mg/dL Estimated Creat Clear 39.20 Estimated GFR 85 ml/min Glucose 148 H (60-115) mg/dL Calcium 10.3 (8.4-10.6) mg/dL TSH 2.060 (0.270-4.20) uIU/mL Urine Color Yellow (Yellow) Urine Appearance Cloudy A (Clear) Urine pH 6.0 (5.0-8.5) Ur Specific [place] >= 1.030 (1.000-1.030) Urine Protein Trace A (Negative) Urine Glucose (UA) Negative (Negative) Urine Ketones Negative (Negative) Urine Blood Trace-lysed A (Negative) Urine Nitrite Negative (Negative) Urine Bilirubin Negative (Negative) Urine Urobilinogen 0.2 (0.2-1.0) Ur Leukocyte Esterase 1+ A (Negative) Urine RBC 0-2 (0-2) Urine WBC 2-5 (0-5) Ur Squamous Epith Cells Few (None-Few) Urine Bacteria Few A (None) Urine Opiates Screen (Negative) Ur Oxycodone Screen (Negative) Urine Methadone Screen (Negative) Ur Barbiturates Screen (Negative) U Tricyclic Antidepress (Negative) Ur Phencyclidine Scrn (Negative) Ur Amphetamines Screen (Negative) U Methamphetamines Scrn (Negative) U Benzodiazepines Scrn (Negative) Urine Cocaine Screen (Negative) U Marijuana (THC) Screen (Negative) Ur Drug Screen Comment Ethyl Alcohol < 0.01 L (0.01-0.03) % 10/17/23 Range/Units 02:35 WBC (4.50-11.00) K/uL RBC (4.00-5.20) m/uL Hgb (12.0-16.0) gm/dL Hct (33.0-51.0) % MCV (80-100) fL MCH (26-34) pg MCHC (32-36) gm/dL RDW Coeff of Gege (11.5-15.5) % Plt Count (140-440) K/uL Neut % (Auto) (42.0-72.0) % Lymph % (Auto) (20-44) % [place] % (Auto) (0.0-11.0) % Eos % (Auto) (0.0-7.0) % Baso % (Auto) (0.0-3.0) % Neut # (Auto) (1.7-7.0) K/uL Lymph # (Auto) (0.90-2.90) K/uL [place] # (Auto) (0.00-0.90) K/UL Eos # (Auto) (0.00-0.50) K/uL Baso # (Auto) (0.00-0.30) K/uL Abs Immat Gran (auto) (0.00-0.30) K/uL Imm/Tot Granulo (auto) % Sodium (135-149) mmol/L Potassium (3.6-5.1) mmol/L Chloride (96-114) mmol/L Carbon Dioxide (20-32) mmol/L Anion Gap (7-15) mEq/L BUN (7-30) mg/dL Creatinine (0.5-1.5) mg/dL Estimated Creat Clear Estimated GFR ml/min Glucose (60-115) mg/dL Calcium (8.4-10.6) mg/dL TSH (0.270-4.20) uIU/mL Urine Color (Yellow) Urine Appearance (Clear) Urine pH (5.0-8.5) Ur Specific [place] (1.000-1.030) Urine Protein (Negative) Urine Glucose (UA) (Negative) Urine Ketones (Negative) Urine Blood (Negative) Urine Nitrite (Negative) Urine Bilirubin (Negative) Urine Urobilinogen (0.2-1.0) Ur Leukocyte Esterase (Negative) Urine RBC (0-2) Urine WBC (0-5) Ur Squamous Epith Cells (None-Few) Urine Bacteria (None) Urine Opiates Screen Negative (Negative) Ur Oxycodone Screen Negative (Negative) Urine Methadone Screen Negative (Negative) Ur Barbiturates Screen Negative (Negative) U Tricyclic Antidepress Negative (Negative) Ur Phencyclidine Scrn Negative (Negative) Ur Amphetamines Screen Negative (Negative) U Methamphetamines Scrn Negative (Negative) U Benzodiazepines Scrn Negative (Negative) Urine Cocaine Screen Negative (Negative) U Marijuana (THC) Screen Negative (Negative) Ur Drug Screen Comment See Note Ethyl Alcohol (0.01-0.03) % Discharge Plan Discharge Clinical Impression: Sinusitis, Impaired memory, Altered mental status Patient Disposition: Home, Self-Care Condition: Stable Instructions: Sinusitis (ED) Additional Instructions: Taking medications as directed, you do have what looks like sinusitis on CT. I gave you prescription via [employer] machine in the waiting room for this. I would also like you to follow-up with your primary care physician in the next week to 10 days, to get your blood pressure checked, as it is high, you may need more medications or a change in your medications. Krystyna will be out to assess the situation at her house. Activity Level: Light activity Prescriptions: No Action gabapentin 600 mg tablet 600 mg PO BID multivitamin [Multiple Vitamins] Tablet 1 tab PO DAILY cholecalciferol (vitamin D3) 50 mcg (2,000 unit) capsule 50 mcg PO DAILY zinc gluconate 50 mg tablet 50 mg PO DAILY acetaminophen 325 mg Tablet 975 mg PO Q8H PRNQty: 30 0RF triamcinolone acetonide 0.1 % Cream 1 applic topical BID Qty: 80 0RF amlodipine 10 mg Tablet 10 mg PO DAILY Qty: 30 0RF emollient [Vanicream] Cream 1 applic topical BID Qty: 500 0RF losartan 50 mg tablet 50 mg PO DAILY Qty: 30 3RF Follow Up/Referrals: Rose Paitner MD [Primary Care Provider] - Stand Alone Forms: MyHealth Info Instructions
== END 2023-10-17 12:50 | disposition home or self-care (01) ==
PROVIDERS: Emergency Provider Family Medicine; PCP Family Medicine
DX: J32.9 Chronic sinusitis, unspecified (principal); R41.82 Altered mental status, unspecified; R82.5 Elevated urine levels of drugs, medicaments and biological substances
CPT/HCPCS: 36415; 70450; 80048; 80306; 81001; 82077; 84443; 85025; 87086; 87186; 93005; 99281; 99284; 99285; A9270

== ENCOUNTER 2024-03-06 10:22 | Outpatient (REF) | payer MEDICARE, SELFPAY ==
[2024-03-06 10:54] LABS: Chloride* 103 mmol/L (96-114); Sodium* 137 mmol/L (135-149)
[2024-03-06 10:55] LABS: Potassium* 4.1 mmol/L (3.6-5.1)
[2024-03-06 10:57] LABS: Anion Gap 10 mEq/L (7-15); Carbon Dioxide* 24 mmol/L (20-32); Creatinine* 0.6 mg/dL (0.5-1.5); Estimated Glomerular Filt Rate 88 ml/min
[2024-03-06 10:58] LABS: Blood Urea Nitrogen* 24 mg/dL (7-30); Calcium* 9.9 mg/dL (8.4-10.6); Glucose* 176 mg/dL (60-115)
== END 2024-03-06 10:23 | disposition home or self-care (01) ==
LOC: NPINS 10:22
PROVIDERS: PCP Family Medicine; Visit Provider Nurse Practitioner Gerontology
DX: E11.9 Type 2 diabetes mellitus without complications (principal); R53.83 Other fatigue
CPT/HCPCS: 80048

== ENCOUNTER 2024-03-10 14:13 | Outpatient (REF) | payer MEDICARE, SELFPAY ==
[2024-03-10 14:52] LABS: Hemoglobin* 11.8 gm/dL (12.0-16.0)
[2024-03-10 16:24] LABS: Hemoglobin A1C* 5.9 % (0-5.6)
== END 2024-03-10 14:14 | disposition home or self-care (01) ==
LOC: NPINS 14:13
PROVIDERS: PCP Family Medicine; Visit Provider Nurse Practitioner Gerontology
DX: R53.83 Other fatigue (principal)
CPT/HCPCS: 83036; 85018

== ENCOUNTER 2024-04-07 14:48 | Outpatient (REF) | payer MEDICARE, SELFPAY ==
[2024-04-07 15:16] LABS: Hemoglobin* 11.7 gm/dL (12.0-16.0)
[2024-04-07 17:08] LABS: Albumin* 3.5 g/dL (3.3-5.0); Chloride* 101 mmol/L (96-114); Sodium* 135 mmol/L (135-149)
[2024-04-07 17:11] LABS: Anion Gap 7 mEq/L (7-15); Aspartate Amino Transferase* 40 U/L (12-35); Bilirubin Direct* 0.3 mg/dL (0.0-0.5); Bilirubin Total* 0.4 mg/dL (0.1-1.5); Blood Urea Nitrogen* 21 mg/dL (7-30); Carbon Dioxide* 27 mmol/L (20-32); Creatinine* 0.6 mg/dL (0.5-1.5); Estimated Glomerular Filt Rate 88 ml/min; Total Protein* 5.8 g/dL (6.0-8.3)
[2024-04-07 17:12] LABS: Alanine Aminotransferase* 35 U/L (4-35); Alkaline Phosphatase* 77 U/L (40-150); Calcium* 9.5 mg/dL (8.4-10.6); Glucose* 131 mg/dL (60-115)
== END 2024-04-07 14:49 | disposition home or self-care (01) ==
LOC: NPINS 14:48
PROVIDERS: PCP Family Medicine; Visit Provider Nurse Practitioner Gerontology
DX: R10.9 Unspecified abdominal pain (principal)
CPT/HCPCS: 80048; 80076; 85018

== ENCOUNTER 2024-05-23 17:24 | Outpatient (REF) | payer MEDICARE, SELFPAY ==
[2024-05-23 17:43] LABS: Appearance Urine Turbid (Clear); Bilirubin Urine Negative (Negative); Blood Urine Negative (Negative); Color Urine Yellow (Yellow); Glucose Urine Negative (Negative); Ketones Urine Negative (Negative); Leukocyte Esterase Urine Negative (Negative); Nitrite Urine Negative (Negative); Protein Urine Trace (Negative); Urobilinogen Urine 0.2 (0.2-1.0); pH Urine 6.5 (5.0-8.5)
[2024-05-23 18:06] LABS: Bacteria Urine Many; RBC Urine 0-2 (0-2); Squamous Epithelial Cell Urine Moderate (None-Few); WBC Urine 0-2 (0-5)
== END 2024-05-23 17:25 | disposition home or self-care (01) ==
LOC: NPINS 17:24
PROVIDERS: PCP Family Medicine; Visit Provider Nurse Practitioner Gerontology
DX: R33.9 Retention of urine, unspecified (principal); N39.9 Disorder of urinary system, unspecified
CPT/HCPCS: 81001; 81003; 87086